=== PATIENT | female | born 1970 | race Caucasian/White ===

== ENCOUNTER 2018-03-24 19:42 | Inpatient (IN) | payer MEDICAID ==
--- NOTE | 2018-03-24 20:13 | ED Physician Chart ---
ED Chief Complaint/HPI - Patient Information Date Seen:: 03/24/18 Time Seen:: 19:50 Chief Complaint:: Fever History of Present Illness:: onset x 3 days of fever, cough, and congestion; no report of trauma, H/As, neck pain, C/P, SOB, Abd. Pain, A/N/V/D/C, chills, or urinary s/s Allergies:: Allergies Allergy/AdvReac Type Severity Reaction Status Date / Time No Known Allergies Allergy Verified 03/24/18 19:53 Vitals:: Vital Signs - 8 hr 03/24/18 19:50 RR 16 Historian:: Patient, EMS Review:: Nurse's Note Reviewed, Old Chart Reviewed, EMS run form Reviewed ED Review of Systems - Review of Systems General/Constitutional: Fever, Chills, No weight loss, Weakness, No diaphoresis , No edema, No loss of appetite Skin: No skin lesions, No rash, No bruising Head: No headache, No light-headedness Eyes: No loss of vision, No pain, No diplopia ENT: No earache, Nasal drainage, No sore throat, No tinnitus Neck: No neck pain, No swelling, No thyromegaly, No stiffness, No mass noted Cardio Vascular: No chest pain, No palpitations, No PND, No orthopnea, No edema Pulmonary: SOB, Cough, No sputum, No wheezing GI: No nausea, No vomiting, No diarrhea, No pain, No melena, No hematochezia, No constipation, No hematemesis G/U: No dysuria, No frequency, No hematuria Preschool Education Director: No vaginal discharge, No abnormal vaginal bleed, No contraction Musculoskeletal: No bone or joint pain, No back pain, No muscle pain Endocrine: No polyuria, No polydipsia Psychiatric: No prior psych history, No depression, No anxiety, No suicidal ideation, No homicidal ideation, No auditory hallucination, No visual hallucination Hematopoietic: No bruising, No lymphadenopathy Allergic/Immuno: No urticaria, No angioedema Neurological: No syncope, No focal symptoms, No weakness, No paresthesia, No headache, No seizure, No dizziness, No confusion, No vertigo ED Past Medical History - Past Medical History Obtainable: Yes Past Medical History: HTN, Asthma/COPD Family History: HTN Social History: Non Smoker, No Alcohol, No Drug Use, Single, Care Facility Surgical History: PEG/GTube (Tracheostomy), other Psychiatricy History: None Medication: Reviewed Family Medical History - Family Member Mother History Unknown: Yes ED Physical Exam - Physical Examination General/Constitutional: Awake, Well-developed, well-nourished, Alert, No distress, GCS 15, Non-toxic appearing, Ambulatory Head: Atraumatic Eyes: Lids, conjuctiva normal, PERRL, EOMI Skin: Nl inspection, No rash, No skin lesions, No ecchymosis, Well hydrated, No lymphadenopathy ENMT: External ears, nose nl, TM canals nl, Nasal exam nl, Lips, teeth, gums nl , Oropharynx nl, Tonsils nl Neck: Nontender, Full ROM w/o pain, No JVD, No nuchal rigidity, No bruit, No mass, No stridor Respiratory: Nl effort/Exclusion Other Respiratory comments:: Lungs: + Rales and Rhonchi Cardio Vascular: RRR, No murmur, gallop, rubs, NL S1 S2, Carotid/Femoral/Distal pulses equal bilaterally GI: No tenderness/rebounding/guarding, No organomegaly, No hernia, Normal BS's, Nondistended, No mass/bruits, No McBurney tenderness : No CVA tenderness Extremities: No tenderness or effusion, Full ROM, normal strength in all extremities, No edema, Normal digits & nails Neuro/Psych: Alert/oriented, DTR's symmetric, Normal sensory exam, Normal motor strength, Judgement/insight normal, Mood normal, Normal gait, No focal deficits Misc: Normal back, No paraspinal tenderness ED Labs/Radiology/EKG Results - Lab Results Comments:: Reviewed - Radiology Results Comments:: + Infiltrate - EKG Interpretations EKG Time:: 21:05 Rate & Rhythm: 110; ST Comments:: non-specific st-t changes ED Septic Shock - . Is Septic Shock (SBP<90, OR Lactate>4 mmol\L) present?: No - <6hrs of presentation: Vital Signs: Vital Signs - 8 hr 03/24/18 19:50 RR 16 ED Reassessment (Disposition) - Reassessment Reassessment Condition:: Improved - Diagnosis Diagnosis:: Respiratory Failure; Fever; UTI; Sepsis; Anemia; Dehydration; PNA; Leukocytosis - Aftercare/Follow up Instructions Aftercare/Follow-Up Instructions:: Counseled pt regarding lab results/diagnosis & need follow up, Counseled pt & family regarding lab results/diagnosis & need follow up - Patient Disposition Discharge/Transfer:: Acute Care w/in this hosp Accepting Physician:: Dr. Tierney Time Called:: 2114 Time Responded:: 21:15 Admitted to:: ICU Spoke to:: Dr. Tierney Admitting Medical Physician:: Dr. Tierney Condition at Disposition:: Stable, Improved
[2018-03-24 20:34] LABS: % BASOPHILS 0.5 % (0.0-2.0); % EOSINOPHILS 2.9 % (0.0-5.0); % LYMPHOCYTES 16.4 % (20.0-50.0); % MONOCYTES 6.9 % (2.0-10.0); % NEUTROPHILS 73.3 % (40.0-80.0); BASOPHILE ABSOLUTE 0.1 Th/cumm (0-0.2); EOSINOPHILE ABSOLUTE 0.3 Th/cmm (0.1-0.4); HEMATOCRIT 29.1 % (41.0-60); HEMOGLOBIN 9.7 gm/dL (12-16); LYMPHOCYTE ABSOLUTE 1.9 Th/cmm (1.5-3.0); MEAN CELL VOLUME 97.9 fl (81-100); MEAN CORPUSCULAR HEMOGLOBIN 32.5 pg (27.0-31.0); MEAN CORPUSCULAR HGB CONC 33.2 pg (28.0-36.0); MEAN PLATELET VOLUME 9.9 fl; MONOCYTE ABSOLUTE 0.8 Th/cmm (0.3-1.0); NEUTROPHILE ABSOLUTE 8.2 Th/cmm (1.8-8.0); PLATELET COUNT 274 Th/cmm (150-400); RED BLOOD COUNT 2.98 Mil/cmm (3.80-5.10); RED CELL DISTRIBUTION WIDTH 13.8 % (11.5-20.0); WHITE BLOOD COUNT 11.3 Th/cmm (4.8-10.8)
[2018-03-24 20:36] LABS: INR 0.99 (0.5-1.4); PROTHROMBIN TIME (TEST) 10.3 SECONDS (9.5-11.5)
[2018-03-24 20:38] LABS: ALB/GLOB RATIO 1.4 (1.0-1.8); ALBUMIN 4.3 gm/dL (3.7-5.3); ALKALINE PHOSPHATASE 124 U/L (34-104); ANION GAP 13.3 (7.0-16.0); BILIRUBIN,TOTAL 0.4 mg/dL (0.3-1.0); BUN - UREA NITROGEN 28 mg/dL (7-25); CALCIUM SERUM 10.7 mg/dL (8.6-10.3); CARBON DIOXIDE 24.4 mEq/L (21.0-31.0); CHLORIDE 112 mEq/L (98-107); CREATININE - SERUM 0.6 mg/dL (0.6-1.2); CREATININE KINASE 87 U/L (30-223); GFR AFRICAN-AMERICAN > 60.0 ml/min (>90); GFR NON AFRICAN-AMERICAN > 60.0 ml/min; GLUCOSE 161 mg/dL (70-105); POTASSIUM SERUM 3.7 mEq/L (3.5-5.1); SGOT 17 U/L (13-39); SGPT/ALT 13 U/L (7-52); SODIUM SERUM 146 mEq/L (136-145); TOTAL PROTEIN,SERUM 7.3 gm/dL (6.0-8.3)
[2018-03-24 20:44] LABS: URINE SOURCE MIDSTREAM
[2018-03-24 20:45] LABS: URINE BILIRUBIN NEGATIVE (NEGATIVE); URINE BLOOD NEGATIVE (NEGATIVE); URINE GLUCOSE (UA) NEGATIVE (NEGATIVE); URINE KETONE NEGATIVE (NEGATIVE); URINE LEUKOCYTE ESTERASE NEGATIVE (NEGATIVE); URINE MICROSCOPIC INDICATED? YES; URINE NITRATE NEGATIVE (NEGATIVE); URINE PROTEIN TRACE mg/dL (NEGATIVE)
[2018-03-24 20:46] LABS: URINE CLARITY CLEAR (CLEAR); URINE COLOR YELLOW
[2018-03-24 20:48] LABS: URINE RBC 0-2 /hpf (0-5)
[2018-03-24 20:49] LABS: URINE BACTERIA 1+ /hpf (NONE SEEN); URINE COARSE GRANULAR CAST 0-2 /lpf (NONE SEEN); URINE EPITHELIAL CELLS MODERATE /lpf (FEW)
[2018-03-24] MEDS ORDERED: cefTRIAXone 1 GM in Sodium Chloride 0.9% 50 ML IV ONE (21:16)
[2018-03-24] MEDS ORDERED: Sodium Chloride 0.9% 1,000 ML IV ONE (22:04)
[2018-03-24] MEDS ORDERED: Magnesium Hydroxide (MOM) 30 mL UDC GT PRN (22:41)
[2018-03-24] MEDS ORDERED: Fleet Enema 135 mL RC PRN (22:41)
--- NOTE | 2018-03-24 23:15 | History & Physical ---
ADMIT DATE: 03/24/2018 CHIEF COMPLAINT: Fever, chills. HISTORY OF PRESENT ILLNESS: The patient is a 47-year-old female with long history of diabetes mellitus, hypertension, subdural hematoma, seizure disorder, chronic respiratory failure, chronic encephalopathy, resident at [facility], transferred to the Emergency Room at [facility] for evaluation and treatment and evaluated by the ER physician. Initial workup significant for urinary infection with sepsis, admitted to the ICU, started on IV fluid and antibiotic. Infectious Disease consultation, Pulmonary consulted on the case. The patient will resume her medication and diet. PAST MEDICAL HISTORY: Diabetes mellitus, hypertension, subdural hematoma, seizure disorder, chronic respiratory failure, chronic encephalopathy. PAST SURGICAL HISTORY: Tracheostomy and G-tube placement. ALLERGIES: None. MEDICATIONS: Follow admission reconciliation. SOCIAL HISTORY: No smoking, no alcohol or drug. FAMILY HISTORY: Noncontributory. REVIEW OF SYSTEMS: IMMUNO SYSTEM: No history of chronic renal disorder. CARDIOVASCULAR SYSTEM: No coronary artery disease. ENDOCRINE SYSTEM: She has a history of diabetes mellitus. GASTROINTESTINAL SYSTEM: No upper or lower gastrointestinal bleed. NEUROLOGICAL: She has history of subdural hematoma, seizure disorder, encephalopathy. SKELETOMUSCULAR SYSTEM: She has weakness of the upper, lower extremities. GENITOURINARY: She has urinary tract infection. PHYSICAL EXAMINATION: GENERAL: She is awake, not coherent. VITAL SIGNS: Temperature 100.0, heart rate 114, blood pressure 123/63. HEENT: Normocephalic. Pupils reactive to light and accommodation. Sclerae clear. NECK: Supple. Negative for lymphadenopathy, JVD or bruit. CHEST: Entry of air bilaterally mild diminished. No wheezing. HEART: S1, S2 normal. No murmur or gallop. ABDOMEN: Soft, bowel sounds positive. EXTREMITIES: No edema. NEUROLOGIC: Not coherent. LABORATORY DATA: White blood cell 11.3, hemoglobin 9.7, hematocrit 29.1, and platelet is 274. Sodium 146, potassium 3.7, BUN is 28, creatinine 0.6. ASSESSMENT: 1. Urinary tract infection. 2. History of subdural hematoma. 3. Chronic respiratory failure. 4. Diabetes mellitus. 5. Seizure disorder. 6. Anemia. 7. Encephalopathy. PLAN: The patient admitted to the hospital under Dr. Tierney's service, started on IV fluid, antibiotic. Dr. Gamez, Tumbler Dyeing Machine Operator, Dr. Leoncio Ceballos, Infectious Disease consulted on the case. The patient is a full code. CBC, CMP for tomorrow. JOB# [id number]
[2018-03-24] MEDS: D5-0.45NS w/20 mEq KCL 1,000 ML IV SCH (23:41)
[2018-03-25] MEDS: Meropenem 1 GM in Sodium Chloride 0.9% 100 ML IV SCH ×2 (00:15→12:34)
[2018-03-25] MEDS: Hydrocodone/APAP 5mg/325mg Tab GT SCH ×4 (00:16→17:39)
[2018-03-25] MEDS: INSULIN ASPART SLIDING SCALE 100 UNITS/ML UNIT SUBQ SCH ×4 (00:18→17:56)
[2018-03-25] MEDS: POLYETHYLENE GLYCOL 3350 17 GM PACK GT SCH ×3 (00:30→22:50)
[2018-03-25] MEDS: Albuterol/Ipratropium Neb 3 ML AERS HHN SCH ×4 (02:31→19:11)
[2018-03-25 04:40] LABS: % BASOPHILS 0.1 % (0.0-2.0); % EOSINOPHILS 3.4 % (0.0-5.0); % LYMPHOCYTES 13.6 % (20.0-50.0); % MONOCYTES 6.6 % (2.0-10.0); % NEUTROPHILS 76.3 % (40.0-80.0); EOSINOPHILE ABSOLUTE 0.4 Th/cmm (0.1-0.4); HEMATOCRIT 27.8 % (41.0-60); HEMOGLOBIN 9.2 gm/dL (12-16); LYMPHOCYTE ABSOLUTE 1.4 Th/cmm (1.5-3.0); MEAN CELL VOLUME 98.4 fl (81-100); MEAN CORPUSCULAR HEMOGLOBIN 32.4 pg (27.0-31.0); MEAN PLATELET VOLUME 9.1 fl; MONOCYTE ABSOLUTE 0.7 Th/cmm (0.3-1.0); RED BLOOD COUNT 2.83 Mil/cmm (3.80-5.10); RED CELL DISTRIBUTION WIDTH 13.2 % (11.5-20.0); WHITE BLOOD COUNT 10.5 Th/cmm (4.8-10.8)
[2018-03-25 04:49] LABS: PLATELET COUNT 217 Th/cmm (150-400)
[2018-03-25 05:26] LABS: ALB/GLOB RATIO 1.4 (1.0-1.8); ALBUMIN 3.8 gm/dL (3.7-5.3); ALKALINE PHOSPHATASE 109 U/L (34-104); ANION GAP 12.4 (7.0-16.0); BILIRUBIN,TOTAL 0.4 mg/dL (0.3-1.0); BUN - UREA NITROGEN 20 mg/dL (7-25); CALCIUM SERUM 9.9 mg/dL (8.6-10.3); CARBON DIOXIDE 21.7 mEq/L (21.0-31.0); CHLORIDE 113 mEq/L (98-107); CREATININE - SERUM 0.5 mg/dL (0.6-1.2); GFR AFRICAN-AMERICAN > 60.0 ml/min (>90); GFR NON AFRICAN-AMERICAN > 60.0 ml/min; GLUCOSE 223 mg/dL (70-105); POTASSIUM SERUM 3.1 mEq/L (3.5-5.1); SGOT 14 U/L (13-39); SGPT/ALT 12 U/L (7-52); SODIUM SERUM 144 mEq/L (136-145); TOTAL PROTEIN,SERUM 6.5 gm/dL (6.0-8.3)
--- NOTE | 2018-03-25 08:10 | Diagnostic Imaging Report ---
CHEST X-RAY: 2 AP views INDICATION: Fever, shortness of breath COMPARISON: None FINDINGS: No focal consolidation or effusions. Heart size is at the upper limits of normal. Tracheostomy tube is noted. Degenerative changes of spine are noted with mild scoliosis. External material is seen overlying the patient. IMPRESSION: No focal consolidation identified.
[2018-03-25] MEDS ORDERED: Non-Formulary Item 1 EA (Amino Acids/Protein Hydrolys [Pro-Stat Awc Liquid] 30 ML) GT SCH (09:00)
[2018-03-25] MEDS: Ferrous Sulfate 300 MG/5 ML UDC GT SCH (09:00)
[2018-03-25] MEDS: Diltiazem 30 mg Tab GT SCH ×2 (09:04→16:54)
[2018-03-25] MEDS: Multivitamin w/ Minerals Tab GT SCH (09:04)
[2018-03-25] MEDS: Potassium Chloride Elixir 20 mEq /15 mL UDC GT SCH ×2 (09:05→16:54)
[2018-03-25] MEDS: Levetiracetam 500 mg/5mL 5mL UDSyr *for ORAL USE ONLY GT SCH ×2 (09:05→16:56)
[2018-03-25] MEDS: D5-0.45NS w/20 mEq KCL 1,000 ML IV SCH (12:32)
--- NOTE | 2018-03-25 16:40 | Consultation ---
DATE OF CONSULTATION: 03/25/2018 REFERRING PHYSICIAN: Dr. Tierney. Thank you very much for this consultation. HISTORY OF PRESENT ILLNESS: This is a 47-year-old female who was admitted from senior living yesterday after she was found to have recurrent fever with highest 101, she is admitted for treatment and management. Fever has come down. The patient is awake, alert. The patient has history of intracranial hemorrhage, respiratory failure, chronic ventilator support. REVIEW OF SYSTEMS: Unable to obtain because of the patient's condition. PHYSICAL EXAMINATION: GENERAL: The patient is awake. VITAL SIGNS: Temperature is 99.2, T-max 100.0, pulse is 113, respiration is 16, blood pressure 125/84, saturation is 100%. HEENT: Atraumatic, normocephalic. Pupils reactive to light and accommodation. Ears, nose and throat normal. NECK: Supple. No JVD. CHEST: There are few rhonchi bilaterally. HEART: Regular rate and rhythm. ABDOMEN: Soft. No tenderness. EXTREMITIES: No edema. LABORATORY DATA: WBC is 10.5, hematocrit 27.8, platelets is 217. Sodium 144, potassium 3.1, BUN 20, creatinine 0.5. Chest x-ray showed no obvious infiltrate. UA shows some bacteria and granular casts. IMPRESSION: 1. This is a 47-year-old female with possible infection, source to be determined, possible urinary tract infection. 2. Respiratory failure. 3. History of intracranial hemorrhage. PLAN: 1. Ventilator support. 2. Empiric antibiotics. 3. Follow up cultures. I will follow the patient with you. Thank you very much for this consultation. JOB# [id number] MTDD
--- NOTE | 2018-03-25 18:06 | Internal Medicine Prog Note ---
Internal Medicine Subjective - Subjective Service Date: 03/25/18 Patient seen and examined:: with staff Patient is:: awake, non-verbal, in bed, confused Per staff patient has:: no adverse event Internal Medicine Objective - Results Result Diagrams: 03/25/18 04:30 03/25/18 04:30 Recent Labs: Laboratory Last Values WBC 10.5 Th/cmm (4.8-10.8) 03/25/18 04:30 RBC 2.83 Mil/cmm (3.80-5.10) L 03/25/18 04:30 Hgb 9.2 gm/dL (12-16) L 03/25/18 04:30 Hct 27.8 % (41.0-60) L 03/25/18 04:30 MCV 98.4 fl (81-100) 03/25/18 04:30 MCH 32.4 pg (27.0-31.0) H 03/25/18 04:30 MCHC Differential 33.0 pg (28.0-36.0) 03/25/18 04:30 RDW 13.2 % (11.5-20.0) 03/25/18 04:30 Plt Count 217 Th/cmm (150-400) D 03/25/18 04:30 MPV 9.1 fl 03/25/18 04:30 Neutrophils % 76.3 % (40.0-80.0) 03/25/18 04:30 Lymphocytes % 13.6 % (20.0-50.0) L 03/25/18 04:30 Monocytes % 6.6 % (2.0-10.0) 03/25/18 04:30 Eosinophils % 3.4 % (0.0-5.0) 03/25/18 04:30 Basophils % 0.1 % (0.0-2.0) 03/25/18 04:30 PT 10.3 SECONDS (9.5-11.5) 03/24/18 20:10 INR 0.99 (0.5-1.4) 03/24/18 20:10 PTT (Actin FS) 24.1 SECONDS (26.0-38.0) L 03/24/18 20:10 Sodium 144 mEq/L (136-145) 03/25/18 04:30 Potassium 3.1 mEq/L (3.5-5.1) L 03/25/18 04:30 Chloride 113 mEq/L (98-107) H 03/25/18 04:30 Carbon Dioxide 21.7 mEq/L (21.0-31.0) 03/25/18 04:30 Anion Gap 12.4 (7.0-16.0) 03/25/18 04:30 BUN 20 mg/dL (7-25) 03/25/18 04:30 Creatinine 0.5 mg/dL (0.6-1.2) L 03/25/18 04:30 Est GFR ( Amer) > 60.0 ml/min (>90) 03/25/18 04:30 Est GFR (Non-Af Amer) > 60.0 ml/min 03/25/18 04:30 BUN/Creatinine Ratio 40.0 03/25/18 04:30 Glucose 223 mg/dL (70-105) H 03/25/18 04:30 POC Glucose 179 MG/DL (70 - 105) H 03/25/18 17:46 Whole Bld Lactic Acid 1.09 mmol/L (0.60-1.99) 03/24/18 20:10 Calcium 9.9 mg/dL (8.6-10.3) 03/25/18 04:30 Total Bilirubin 0.4 mg/dL (0.3-1.0) 03/25/18 04:30 AST 14 U/L (13-39) 03/25/18 04:30 ALT 12 U/L (7-52) 03/25/18 04:30 Alkaline Phosphatase 109 U/L (34-104) H 03/25/18 04:30 Creatine Kinase 87 U/L (30-223) 03/24/18 20:10 Troponin I 0.01 ng/mL (0.01-0.05) 03/24/18 20:10 Total Protein 6.5 gm/dL (6.0-8.3) 03/25/18 04:30 Albumin 3.8 gm/dL (3.7-5.3) 03/25/18 04:30 Globulin 2.7 gm/dL 03/25/18 04:30 Albumin/Globulin Ratio 1.4 (1.0-1.8) 03/25/18 04:30 Serum , Qual NEGATIVE (NEGATIVE) 03/24/18 20:10 Urine Source MIDSTREAM 03/24/18 20:30 Urine Color YELLOW 03/24/18 20:30 Urine Clarity CLEAR (CLEAR) 03/24/18 20:30 Urine pH 7.0 (4.6 - 8.0) 03/24/18 20:30 Ur Specific [place] 1.010 (1.005-1.030) 03/24/18 20:30 Urine Protein TRACE mg/dL (NEGATIVE) 03/24/18 20:30 Urine Glucose (UA) NEGATIVE mg/dL (NEGATIVE) 03/24/18 20:30 Urine Ketones NEGATIVE mg/dL (NEGATIVE) 03/24/18 20:30 Urine Blood NEGATIVE (NEGATIVE) 03/24/18 20:30 Urine Nitrate NEGATIVE (NEGATIVE) 03/24/18 20:30 Urine Bilirubin NEGATIVE (NEGATIVE) 03/24/18 20:30 Urine Urobilinogen 1.0 E.U./dL (0.2 - 1.0) 03/24/18 20:30 Ur Leukocyte Esterase NEGATIVE (NEGATIVE) 03/24/18 20:30 Urine RBC 0-2 /hpf (0-5) 03/24/18 20:30 Urine WBC 2-5 /hpf (0-5) 03/24/18 20:30 Ur Epithelial Cells MODERATE /lpf (FEW) 03/24/18 20:30 Urine Bacteria 1+ /hpf (NONE SEEN) H 03/24/18 20:30 Coarse Granular Casts 0-2 /lpf (NONE SEEN) H 03/24/18 20:30 - Physical Exam Vitals and I&O: Vital Signs Temp 99.2 F 03/25/18 16:00 Pulse 103 03/25/18 17:28 Resp 21 03/25/18 17:00 BP 122/74 03/25/18 17:00 Pulse Ox 100 03/25/18 17:28 Intake & Output 03/24/18 03/25/18 03/25/18 18:59 06:59 18:59 Intake Total 7106.470 2424 Balance 3897.045 2345 Weight (lbs) 40.914 kg Intake: Intake, IV Amount 060.701 5921 D5-0.45NS w/20 mEq KCL 1, 1000 000 ml @ 100 mls/hr IV . Q10H [facility] Rx#:[id number] Meropenem 1 gm In Sodium 100 Chloride 0.9% 100 ml @ 100 mls/hr IV Q12H [facility] Rx #:[id number] Sodium Chloride 0.9% 1, 771.667 000 ml @ 100 mls/hr IV . Q10H [facility] Rx#:[id number] Tube Feeding 420 Other 350 Other: # Voids 2 # Bowel Movements 1 Stool Characteristics Soft Soft Feng Brown Green Green Weight Source Bedscale Active Medications: Current Medications Acetaminophen (Tylenol) 650 mg GT Q6HR PRN PRN Reason: Pain or Fever >101 Stop: 05/23/18 22:40 Last Admin: 03/25/18 11:00 Dose: 650 mg Acetaminophen/Hydrocodone Bitart ([place] 5mg/325mg) 1 tab GT Q6HR [facility] Stop: 05/24/18 00:00 Last Admin: 03/25/18 17:39 Dose: 1 tab Albuterol/Ipratropium (Duoneb Neb) 3 ml HHN Q6HRT [facility] Stop: 05/24/18 00:59 Last Admin: 03/25/18 13:47 Dose: 3 ml Amantadine HCl (Symmetrel) 100 mg GT Q12HR [facility] Stop: 05/24/18 00:44 Last Admin: 03/25/18 09:13 Dose: 100 mg Amlodipine Besylate (Norvasc) 10 mg GT DAILY [facility] Stop: 05/24/18 08:59 Last Admin: 03/25/18 09:04 Dose: 10 mg Ascorbic Acid (Vitamin C) 500 mg GT BID [facility] Stop: 05/24/18 08:59 Last Admin: 03/25/18 16:54 Dose: 500 mg Diltiazem HCl (Cardizem) 30 mg GT BID [facility] Stop: 05/24/18 08:59 Last Admin: 03/25/18 16:54 Dose: 30 mg Diphenhydramine HCl (Benadryl) 12.5 mg GT Q6H PRN PRN Reason: Itching Stop: 05/23/18 22:40 Docusate Sodium (Colace) 100 mg PO BID [facility] Stop: 05/24/18 08:59 Last Admin: 03/25/18 16:54 Dose: 100 mg Famotidine (Pepcid) 20 mg GT DAILY [facility] Stop: 05/24/18 08:59 Last Admin: 03/25/18 09:04 Dose: 20 mg Ferrous Sulfate (Iron) 330 mg GT QDAC [facility] Stop: 05/24/18 07:29 Last Admin: 03/25/18 09:00 Dose: 330 mg Heparin Sodium (Porcine) (Heparin) 5,000 units SUBQ Q12HR [facility] Stop: 05/24/18 00:44 Last Admin: 03/25/18 09:06 Dose: 5,000 units Meropenem 1 gm/ Sodium (Chloride) 100 mls @ 100 mls/hr IV Q12H [facility] Stop: 05/24/18 00:00 Last Admin: 03/25/18 12:34 Dose: 100 mls/hr Potassium Chloride/Dextrose/Sod Cl (D5-0.45ns W/20 Meq Kcl) 1,000 mls @ 100 mls /hr IV .Q10H [facility] Stop: 05/23/18 22:44 Last Admin: 03/25/18 12:32 Dose: 100 mls/hr Vancomycin HCl 1 gm/ Sodium (Chloride) 250 mls @ 165 mls/hr IV Q12H [facility] Stop: 05/24/18 15:59 Last Admin: 03/25/18 15:33 Dose: 165 mls/hr Insulin Aspart (Novolog Insulin Sliding Scale) 0 units SUBQ Q6HR [facility]; Protocol Stop: 05/24/18 00:00 Last Admin: 03/25/18 17:56 Dose: 3 units Insulin Detemir (Levemir Insulin) 10 units SUBQ HS [facility] Stop: 05/24/18 20:59 Levetiracetam (Keppra) 500 mg GT BID [facility] Stop: 05/24/18 08:59 Last Admin: 03/25/18 16:56 Dose: 500 mg Magnesium Hydroxide (Milk Of Magnesia) 30 ml GT Q6H PRN PRN Reason: Constipation Stop: 05/23/18 22:40 Miscellaneous (Vancomycin Iv Per Pharmacy) 1 ea MC PRN [facility] Stop: 05/24/18 14:44 Ondansetron HCl (Zofran) 4 mg IV Q4H PRN PRN Reason: Nausea / Vomiting Stop: 05/23/18 22:44 Polyethylene Glycol (Miralax) 17 gm GT Q12H [facility] Stop: 05/23/18 22:44 Last Admin: 03/25/18 08:45 Dose: Not Given Potassium Chloride (Potassium Chloride Elixir) 40 meq GT BID [facility] Stop: 05/24/18 08:59 Last Admin: 03/25/18 16:54 Dose: 40 meq Senna (Senna) 8.6 mg GT DAILY [facility] Stop: 05/24/18 08:59 Last Admin: 03/25/18 09:04 Dose: 8.6 mg Simvastatin (Zocor) 10 mg GT HS [facility] Stop: 05/24/18 20:59 Sodium Phosphate (Fleet Enema) 135 ml RC PRN PRN PRN Reason: Constipation Stop: 05/23/18 22:40 General: demented HEENT: NC/AT, PERRLA, EOMI, anicteric sclerae, throat clear Neck: Supple, No JVD, No thyromegaly, +2 carotid pulse wo bruit, No LAD Cardiovascular: Normal S1, Normal S2, without murmur Abdomen: soft, non-tender, non-distended Extremities: clear Neurological: no change - Procedures Procedures: Procedures Procedure Code Date RESPIRATORY VENTILATION, LESS THAN 24 CONSECUTIVE HOURS [id number] 03/24/18 Internal Medicine Assmt/Plan - Assessment Assessment: 1.UTI. 2.SEPSIS. 3.RESPIRATORY FAILURE. 4.SAH. 5.DM. 6.ANEMIA. - Plan Plan: CONTINUE ON CURRENT MEDICATION AND DIET. Nutritional Asmnt/Malnutr-PDOC - Dietary Evaluation Malnutrition Findings (Please click <Entered> for more info): Nutritional Asmnt/Malnutrition Start: 03/25/18 13: 56 Text: Status: Complete Freq: Protocol: Document 03/25/18 14:40 LCHENG (Rec: 03/25/18 14:51 LCTYSONG [email or web address]) Nutritional Asmnt/Malnutrition Patient General Information Nutritional Screening High Risk Diagnosis urosepsis, fever Pertinent Medical Hx/Surgical Hx HTN, asthma/COPD, PEG/Gtube Subjective Information Pt seen resting in bed, on trach. TF was running at 70ml/ hr at this time. Current Diet Order/ Nutrition Support glucerna 1.2 70ml x 20hr Pertinent Medications vit C, colace, iron, novolog, levemir, miralax, D5-0.45ns w 20meq kcl, senna Pertinent Labs 03/25 K 3.1, Cl 13, Cr 0.5, glucose 223., POC 145-222 03/24 Na 146, cl 112, BUN 28, glucose 161 Nutritional Hx/Data Height 1.47 m Height (Calculated Centimeters) 147.3 Current Weight (lbs) 40.823 kg Weight (Calculated Kilograms) 40.8 Weight (Calculated Grams) 96162.3 [place] Body Weight 96 Body Mass Index (BMI) 18.8 Weight Status Approriate GI Symptoms GI Symptoms None Last BM 03/25 Difficult in: None Usual diet at home diabetisource 70ml x 20hr daily at care facility per chart Skin Integrity/Comment: intact jason 13 Estimated Nutritional Goals BEE in Kcals: Using Current wt Calories/Kcals/Kg 30-35 Kcals Calculated 9347-8863 Protein: Using Current wt Protein g/k.2-1.4 Protein Calculated 49-57 Fluid: ml 1230-1435ml (1ml/kcal) Nutritional Problem 2. Problem Problem increased nutrition needs Etiology increased metabolic demand Signs/Symptoms: dx of urosepsis, fever 1. Problem Problem altered nutrition related labs Etiology possible endocrine dysfunction , electrolytes imbalance Signs/Symptoms: glucose 161-165, POC 145-222, K 3.1 Intervention/Recommendation Comments 1. Continue with current TF regimen. It provides 1680kcal, 84g protein, 1127ml free water, meeting 100% of nutritional needs 2. MD to adjust insulin regimen for optimal glycemic control 3. Monitor TF rate, tolerance, wt, skin integrity and labs 4. F/U as high risk in 2-3 days, 03/27-03/28 Expected Outcomes/Goals Expected Outcomes/Goals 1. Pt to meet at least 75% of nutritional needs via nutrition support with tolerance 2. Wt stability, skin to remain intact, labs to approach WNL.
[2018-03-25] MEDS: Insulin Detemir 100 units/mL 10mL Vial SUBQ SCH (20:40)
[2018-03-26] MEDS: INSULIN ASPART SLIDING SCALE 100 UNITS/ML UNIT SUBQ SCH ×4 (00:09→18:28)
[2018-03-26] MEDS: Hydrocodone/APAP 5mg/325mg Tab GT SCH ×5 (00:12→23:55)
[2018-03-26] MEDS: Meropenem 1 GM in Sodium Chloride 0.9% 100 ML IV SCH ×3 (00:13→23:56)
[2018-03-26] MEDS: D5-0.45NS w/20 mEq KCL 1,000 ML IV SCH ×3 (00:15→23:38)
[2018-03-26] MEDS: Albuterol/Ipratropium Neb 3 ML AERS HHN SCH ×4 (00:59→19:11)
[2018-03-26 05:06] LABS: % BASOPHILS 0.1 % (0.0-2.0); % EOSINOPHILS 3.7 % (0.0-5.0); % LYMPHOCYTES 12.5 % (20.0-50.0); % MONOCYTES 6.5 % (2.0-10.0); % NEUTROPHILS 77.2 % (40.0-80.0); EOSINOPHILE ABSOLUTE 0.5 Th/cmm (0.1-0.4); HEMATOCRIT 27.3 % (41.0-60); HEMOGLOBIN 9.2 gm/dL (12-16); LYMPHOCYTE ABSOLUTE 1.6 Th/cmm (1.5-3.0); MEAN CELL VOLUME 98.2 fl (81-100); MEAN CORPUSCULAR HEMOGLOBIN 33.2 pg (27.0-31.0); MEAN CORPUSCULAR HGB CONC 33.8 pg (28.0-36.0); MEAN PLATELET VOLUME 9.5 fl; MONOCYTE ABSOLUTE 0.8 Th/cmm (0.3-1.0); NEUTROPHILE ABSOLUTE 10.1 Th/cmm (1.8-8.0); PLATELET COUNT 212 Th/cmm (150-400); RED BLOOD COUNT 2.77 Mil/cmm (3.80-5.10)
[2018-03-26 05:37] LABS: ANION GAP 12.6 (7.0-16.0); BUN - UREA NITROGEN 14 mg/dL (7-25); CALCIUM SERUM 10.1 mg/dL (8.6-10.3); CARBON DIOXIDE 21.8 mEq/L (21.0-31.0); CHLORIDE 115 mEq/L (98-107); CREATININE - SERUM 0.4 mg/dL (0.6-1.2); GFR AFRICAN-AMERICAN > 60.0 ml/min (>90); GFR NON AFRICAN-AMERICAN > 60.0 ml/min; GLUCOSE 90 mg/dL (70-105); POTASSIUM SERUM 3.4 mEq/L (3.5-5.1); SODIUM SERUM 146 mEq/L (136-145)
[2018-03-26] MEDS: Ferrous Sulfate 300 MG/5 ML UDC GT SCH (06:34)
[2018-03-26] MEDS: Potassium Chloride Elixir 20 mEq /15 mL UDC GT SCH ×2 (08:36→17:12)
[2018-03-26] MEDS: Levetiracetam 500 mg/5mL 5mL UDSyr *for ORAL USE ONLY GT SCH ×2 (08:36→17:12)
[2018-03-26] MEDS: Multivitamin w/ Minerals Tab GT SCH (08:37)
[2018-03-26] MEDS: Diltiazem 30 mg Tab GT SCH ×2 (08:37→17:11)
[2018-03-26] MEDS: POLYETHYLENE GLYCOL 3350 17 GM PACK GT SCH ×2 (10:33→22:33)
[2018-03-26 20:10] LABS: A1C % 6.2 % (4.0-6.0)
--- NOTE | 2018-03-26 20:18 | Internal Medicine Prog Note ---
Internal Medicine Subjective - Subjective Service Date: 03/26/18 Patient seen and examined:: with staff Patient is:: awake, non-verbal, in bed, confused Per staff patient has:: no adverse event Internal Medicine Objective - Results Result Diagrams: 03/26/18 04:35 03/26/18 04:35 Recent Labs: Laboratory Last Values WBC 13.0 Th/cmm (4.8-10.8) H 03/26/18 04:35 RBC 2.77 Mil/cmm (3.80-5.10) L 03/26/18 04:35 Hgb 9.2 gm/dL (12-16) L 03/26/18 04:35 Hct 27.3 % (41.0-60) L 03/26/18 04:35 MCV 98.2 fl (81-100) 03/26/18 04:35 MCH 33.2 pg (27.0-31.0) H 03/26/18 04:35 MCHC Differential 33.8 pg (28.0-36.0) 03/26/18 04:35 RDW 13.0 % (11.5-20.0) 03/26/18 04:35 Plt Count 212 Th/cmm (150-400) 03/26/18 04:35 MPV 9.5 fl 03/26/18 04:35 Neutrophils % 77.2 % (40.0-80.0) 03/26/18 04:35 Lymphocytes % 12.5 % (20.0-50.0) L 03/26/18 04:35 Monocytes % 6.5 % (2.0-10.0) 03/26/18 04:35 Eosinophils % 3.7 % (0.0-5.0) 03/26/18 04:35 Basophils % 0.1 % (0.0-2.0) 03/26/18 04:35 PT 10.3 SECONDS (9.5-11.5) 03/24/18 20:10 INR 0.99 (0.5-1.4) 03/24/18 20:10 PTT (Actin FS) 24.1 SECONDS (26.0-38.0) L 03/24/18 20:10 Sodium 146 mEq/L (136-145) H 03/26/18 04:35 Potassium 3.4 mEq/L (3.5-5.1) L 03/26/18 04:35 Chloride 115 mEq/L (98-107) H 03/26/18 04:35 Carbon Dioxide 21.8 mEq/L (21.0-31.0) 03/26/18 04:35 Anion Gap 12.6 (7.0-16.0) 03/26/18 04:35 BUN 14 mg/dL (7-25) 03/26/18 04:35 Creatinine 0.4 mg/dL (0.6-1.2) L 03/26/18 04:35 Est GFR ( Amer) > 60.0 ml/min (>90) 03/26/18 04:35 Est GFR (Non-Af Amer) > 60.0 ml/min 03/26/18 04:35 BUN/Creatinine Ratio 35.0 03/26/18 04:35 Glucose 90 mg/dL (70-105) 03/26/18 04:35 POC Glucose 102 MG/DL (70 - 105) 03/26/18 18:13 Hemoglobin A1c % 6.2 % (4.0-6.0) H 03/25/18 04:30 Whole Bld Lactic Acid 1.09 mmol/L (0.60-1.99) 03/24/18 20:10 Calcium 10.1 mg/dL (8.6-10.3) 03/26/18 04:35 Magnesium 2.0 mg/dL (1.9-2.7) 03/26/18 04:35 Total Bilirubin 0.4 mg/dL (0.3-1.0) 03/25/18 04:30 AST 14 U/L (13-39) 03/25/18 04:30 ALT 12 U/L (7-52) 03/25/18 04:30 Alkaline Phosphatase 109 U/L (34-104) H 03/25/18 04:30 Creatine Kinase 87 U/L (30-223) 03/24/18 20:10 Troponin I 0.01 ng/mL (0.01-0.05) 03/24/18 20:10 Total Protein 6.5 gm/dL (6.0-8.3) 03/25/18 04:30 Albumin 3.8 gm/dL (3.7-5.3) 03/25/18 04:30 Globulin 2.7 gm/dL 03/25/18 04:30 Albumin/Globulin Ratio 1.4 (1.0-1.8) 03/25/18 04:30 Serum , Qual NEGATIVE (NEGATIVE) 03/24/18 20:10 Urine Source MIDSTREAM 03/24/18 20:30 Urine Color YELLOW 03/24/18 20:30 Urine Clarity CLEAR (CLEAR) 03/24/18 20:30 Urine pH 7.0 (4.6 - 8.0) 03/24/18 20:30 Ur Specific [place] 1.010 (1.005-1.030) 03/24/18 20:30 Urine Protein TRACE mg/dL (NEGATIVE) 03/24/18 20:30 Urine Glucose (UA) NEGATIVE mg/dL (NEGATIVE) 03/24/18 20:30 Urine Ketones NEGATIVE mg/dL (NEGATIVE) 03/24/18 20:30 Urine Blood NEGATIVE (NEGATIVE) 03/24/18 20:30 Urine Nitrate NEGATIVE (NEGATIVE) 03/24/18 20:30 Urine Bilirubin NEGATIVE (NEGATIVE) 03/24/18 20:30 Urine Urobilinogen 1.0 E.U./dL (0.2 - 1.0) 03/24/18 20:30 Ur Leukocyte Esterase NEGATIVE (NEGATIVE) 03/24/18 20:30 Urine RBC 0-2 /hpf (0-5) 03/24/18 20:30 Urine WBC 2-5 /hpf (0-5) 03/24/18 20:30 Ur Epithelial Cells MODERATE /lpf (FEW) 03/24/18 20:30 Urine Bacteria 1+ /hpf (NONE SEEN) H 03/24/18 20:30 Coarse Granular Casts 0-2 /lpf (NONE SEEN) H 03/24/18 20:30 Vancomycin Trough 15.5 ug/mL (5-10) H 03/26/18 15:36 - Physical Exam Vitals and I&O: Vital Signs Temp 99.1 F 03/26/18 17:00 Pulse 100 03/26/18 19:11 Resp 22 03/26/18 18:00 BP 109/58 03/26/18 18:00 Pulse Ox 100 03/26/18 19:11 Intake & Output 03/26/18 03/26/18 03/27/18 06:59 18:59 06:59 Intake Total 1350 2134 Output Total 2 Balance 1350 2132 Weight (lbs) 44.906 kg Intake: Intake, IV Amount 1350 1350 D5-0.45NS w/20 mEq KCL 1, 1000 1000 000 ml @ 100 mls/hr IV . Q10H [facility] Rx#:[id number] Meropenem 1 gm In Sodium 100 100 Chloride 0.9% 100 ml @ 100 mls/hr IV Q12H [facility] Rx #:[id number] Vancomycin HCl 1 gm In 250 250 Sodium Chloride 0.9% 250 ml @ 165 mls/hr IV Q12H [facility] Rx#:[id number] Tube Feeding 454 Other 330 Output: Stool 1 Urine/Stool Mix 1 Other: # Voids 3 # Bowel Movements 0 Stool Characteristics Soft Brown Green Weight Source Bedscale Active Medications: Current Medications Acetaminophen (Tylenol) 650 mg GT Q6HR PRN PRN Reason: Pain or Fever >101 Stop: 05/23/18 22:40 Last Admin: 03/25/18 11:00 Dose: 650 mg Acetaminophen/Hydrocodone Bitart ([place] 5mg/325mg) 1 tab GT Q6HR [facility] Stop: 05/24/18 00:00 Last Admin: 03/26/18 17:11 Dose: 1 tab Albuterol/Ipratropium (Duoneb Neb) 3 ml HHN Q6HRT [facility] Stop: 05/24/18 00:59 Last Admin: 03/26/18 19:11 Dose: 3 ml Amantadine HCl (Symmetrel) 100 mg GT Q12HR [facility] Stop: 05/24/18 00:44 Last Admin: 03/26/18 08:41 Dose: 100 mg Amlodipine Besylate (Norvasc) 10 mg GT DAILY [facility] Stop: 05/24/18 08:59 Last Admin: 03/26/18 08:37 Dose: 10 mg Ascorbic Acid (Vitamin C) 500 mg GT BID [facility] Stop: 05/24/18 08:59 Last Admin: 03/26/18 17:11 Dose: 500 mg Diltiazem HCl (Cardizem) 30 mg GT BID [facility] Stop: 05/24/18 08:59 Last Admin: 03/26/18 17:11 Dose: 30 mg Diphenhydramine HCl (Benadryl) 12.5 mg GT Q6H PRN PRN Reason: Itching Stop: 05/23/18 22:40 Docusate Sodium (Colace) 100 mg PO BID [facility] Stop: 05/24/18 08:59 Last Admin: 03/26/18 17:11 Dose: 100 mg Famotidine (Pepcid) 20 mg GT DAILY [facility] Stop: 05/24/18 08:59 Last Admin: 03/26/18 08:36 Dose: 20 mg Ferrous Sulfate (Iron) 330 mg GT QDAC [facility] Stop: 05/24/18 07:29 Last Admin: 03/26/18 06:34 Dose: 330 mg Heparin Sodium (Porcine) (Heparin) 5,000 units SUBQ Q12HR [facility] Stop: 05/24/18 00:44 Last Admin: 03/26/18 08:42 Dose: 5,000 units Meropenem 1 gm/ Sodium (Chloride) 100 mls @ 100 mls/hr IV Q12H [facility] Stop: 05/24/18 00:00 Last Infusion: 03/26/18 12:30 Dose: Infused Potassium Chloride/Dextrose/Sod Cl (D5-0.45ns W/20 Meq Kcl) 1,000 mls @ 100 mls /hr IV .Q10H [facility] Stop: 05/23/18 22:44 Last Admin: 03/26/18 13:38 Dose: 100 mls/hr Vancomycin HCl 1 gm/ Sodium (Chloride) 250 mls @ 165 mls/hr IV Q12H [facility] Stop: 05/24/18 15:59 Last Infusion: 03/26/18 17:48 Dose: Infused Insulin Aspart (Novolog Insulin Sliding Scale) 0 units SUBQ Q6HR [facility]; Protocol Stop: 05/24/18 00:00 Last Admin: 03/26/18 18:28 Dose: Not Given Insulin Detemir (Levemir Insulin) 10 units SUBQ HS [facility] Stop: 05/24/18 20:59 Last Admin: 03/25/18 20:40 Dose: 10 units Levetiracetam (Keppra) 500 mg GT BID [facility] Stop: 05/24/18 08:59 Last Admin: 03/26/18 17:12 Dose: 500 mg Magnesium Hydroxide (Milk Of Magnesia) 30 ml GT Q6H PRN PRN Reason: Constipation Stop: 05/23/18 22:40 Miscellaneous (Vancomycin Iv Per Pharmacy) 1 ea MC PRN [facility] Stop: 05/24/18 14:44 Ondansetron HCl (Zofran) 4 mg IV Q4H PRN PRN Reason: Nausea / Vomiting Stop: 05/23/18 22:44 Polyethylene Glycol (Miralax) 17 gm GT Q12H [facility] Stop: 05/23/18 22:44 Last Admin: 03/26/18 10:33 Dose: Not Given Potassium Chloride (Potassium Chloride Elixir) 40 meq GT BID [facility] Stop: 05/24/18 08:59 Last Admin: 03/26/18 17:12 Dose: 40 meq Senna (Senna) 8.6 mg GT DAILY [facility] Stop: 05/24/18 08:59 Last Admin: 03/26/18 09:19 Dose: Not Given Simvastatin (Zocor) 10 mg GT HS [facility] Stop: 05/24/18 20:59 Last Admin: 03/25/18 20:40 Dose: 10 mg Sodium Phosphate (Fleet Enema) 135 ml RC PRN PRN PRN Reason: Constipation Stop: 05/23/18 22:40 General: demented HEENT: NC/AT, PERRLA, EOMI, anicteric sclerae, throat clear Neck: Supple, No JVD, No thyromegaly, +2 carotid pulse wo bruit, No LAD Cardiovascular: Normal S1, Normal S2, without murmur Abdomen: soft, non-tender, non-distended Extremities: clear Neurological: no change - Procedures Procedures: Procedures Procedure Code Date RESPIRATORY VENTILATION, 24-96 CONSECUTIVE HOURS [id number] 03/24/18 Internal Medicine Assmt/Plan - Assessment Assessment: 1.UTI. 2.SEPSIS. 3.RESPIRATORY FAILURE. 4.SAH. 5.DM. 6.ANEMIA. - Plan Plan: CONTINUE ON CURRENT MEDICATION AND DIET. Nutritional Asmnt/Malnutr-PDOC - Dietary Evaluation Malnutrition Findings (Please click <Entered> for more info): Nutritional Asmnt/Malnutrition Start: 03/25/18 13: 56 Text: Status: Complete Freq: Protocol: Document 03/25/18 14:40 DESIREEG (Rec: 03/25/18 14:51 QAMAR [email or web address]) Nutritional Asmnt/Malnutrition Patient General Information Nutritional Screening High Risk Diagnosis urosepsis, fever Pertinent Medical Hx/Surgical Hx HTN, asthma/COPD, PEG/Gtube Subjective Information Pt seen resting in bed, on trach. TF was running at 70ml/ hr at this time. Current Diet Order/ Nutrition Support glucerna 1.2 70ml x 20hr Pertinent Medications vit C, colace, iron, novolog, levemir, miralax, D5-0.45ns w 20meq kcl, senna Pertinent Labs 03/25 K 3.1, Cl 13, Cr 0.5, glucose 223., POC 145-222 03/24 Na 146, cl 112, BUN 28, glucose 161 Nutritional Hx/Data Height 1.47 m Height (Calculated Centimeters) 147.3 Current Weight (lbs) 40.823 kg Weight (Calculated Kilograms) 40.8 Weight (Calculated Grams) 24954.3 [place] Body Weight 96 Body Mass Index (BMI) 18.8 Weight Status Approriate GI Symptoms GI Symptoms None Last BM 03/25 Difficult in: None Usual diet at home diabetisource 70ml x 20hr daily at care facility per chart Skin Integrity/Comment: intact jason 13 Estimated Nutritional Goals BEE in Kcals: Using Current wt Calories/Kcals/Kg 30-35 Kcals Calculated 4324-8947 Protein: Using Current wt Protein g/k.2-1.4 Protein Calculated 49-57 Fluid: ml 1230-1435ml (1ml/kcal) Nutritional Problem 2. Problem Problem increased nutrition needs Etiology increased metabolic demand Signs/Symptoms: dx of urosepsis, fever 1. Problem Problem altered nutrition related labs Etiology possible endocrine dysfunction , electrolytes imbalance Signs/Symptoms: glucose 161-165, POC 145-222, K 3.1 Intervention/Recommendation Comments 1. Continue with current TF regimen. It provides 1680kcal, 84g protein, 1127ml free water, meeting 100% of nutritional needs 2. MD to adjust insulin regimen for optimal glycemic control 3. Monitor TF rate, tolerance, wt, skin integrity and labs 4. F/U as high risk in 2-3 days, 03/27-03/28 Expected Outcomes/Goals Expected Outcomes/Goals 1. Pt to meet at least 75% of nutritional needs via nutrition support with tolerance 2. Wt stability, skin to remain intact, labs to approach WNL.
[2018-03-26] MEDS: Insulin Detemir 100 units/mL 10mL Vial SUBQ SCH (20:48)
[2018-03-27] MEDS: INSULIN ASPART SLIDING SCALE 100 UNITS/ML UNIT SUBQ SCH ×5 (00:05→23:40)
[2018-03-27] MEDS: Albuterol/Ipratropium Neb 3 ML AERS HHN SCH ×4 (00:30→18:57)
[2018-03-27 05:09] LABS: % BASOPHILS 0.1 % (0.0-2.0); % EOSINOPHILS 5.2 % (0.0-5.0); % LYMPHOCYTES 15.3 % (20.0-50.0); % MONOCYTES 7.7 % (2.0-10.0); % NEUTROPHILS 71.7 % (40.0-80.0); EOSINOPHILE ABSOLUTE 0.4 Th/cmm (0.1-0.4); HEMOGLOBIN 8.9 gm/dL (12-16); LYMPHOCYTE ABSOLUTE 1.3 Th/cmm (1.5-3.0); MEAN CELL VOLUME 97.8 fl (81-100); MEAN CORPUSCULAR HEMOGLOBIN 33.4 pg (27.0-31.0); MEAN CORPUSCULAR HGB CONC 34.1 pg (28.0-36.0); MEAN PLATELET VOLUME 10.2 fl; MONOCYTE ABSOLUTE 0.7 Th/cmm (0.3-1.0); NEUTROPHILE ABSOLUTE 6.2 Th/cmm (1.8-8.0); PLATELET COUNT 195 Th/cmm (150-400); RED BLOOD COUNT 2.66 Mil/cmm (3.80-5.10); RED CELL DISTRIBUTION WIDTH 13.5 % (11.5-20.0); WHITE BLOOD COUNT 8.6 Th/cmm (4.8-10.8)
[2018-03-27] MEDS: Hydrocodone/APAP 5mg/325mg Tab GT SCH ×4 (06:05→23:39)
--- NOTE | 2018-03-27 06:18 | Consultation ---
DATE OF CONSULTATION: 03/25/2018 PRIMARY CARE PHYSICIAN: Dr. Tierney. CHIEF COMPLAINT: This is a 47-year-old female who was brought to the Emergency Room with complaint of fever for 3 days. HISTORY OF PRESENT ILLNESS: The patient lives in a correction and was febrile for 3 days and brought to Emergency where the patient was evaluated and admitted to ICU with respiratory failure. The patient's workup shows sepsis. Infectious consultation was called for further treatment, antibiotic adjusted and discussed with the staff. PAST MEDICAL HISTORY: Essential hypertension, asthma, diabetes, tracheostomy and G-tube placement. FAMILY HISTORY: Negative. SOCIAL HISTORY: Nonsmoker. REVIEW OF SYSTEMS: Unable to obtain. No seizure, fall, bleeding, trauma, HIV or hepatitis. PHYSICAL EXAMINATION: GENERAL/VITAL SIGNS: The patient is a young female, bedbound with the following vital signs; temperature is 98, pulse 89, respirations 18 and blood pressure 108/66. HEENT: Mild pallor. No icterus or plaque. NECK: Supple. LUNGS: Breath sounds bilateral decreased. CARDIOVASCULAR: S1 and S2. ABDOMEN: Soft, bowel sounds, no ____ cervical lymph nodes. Muscle atrophy present. LABORATORY DATA: White count is 10,000, hemoglobin is 9 grams, platelets normal at 217. DIAGNOSTIC DATA: Chest x-ray reviewed. Tracheostomy present. Degenerative changes of the spine with scoliosis. UA shows 1+ bacteria. DIAGNOSES: Pneumonia, urinary tract infection, tracheostomy and respiratory insufficiency. PLAN: The patient is started on Merrem. Will add vancomycin, supportive care. Rest of the care as ordered in CPOE. Hypertension is controlled with amlodipine. Constipation, docusate. Iron deficiency, iron sulphate. Diabetes, insulin. Seizures, Keppra. Thank you Dr. Tierney for this consultation. JOB# [id number]
[2018-03-27] MEDS: Ferrous Sulfate 300 MG/5 ML UDC GT SCH (06:48)
[2018-03-27 07:29] LABS: ALB/GLOB RATIO 1.7 (1.0-1.8); ALBUMIN 3.8 gm/dL (3.7-5.3); ALKALINE PHOSPHATASE 105 U/L (34-104); ANION GAP 10.9 (7.0-16.0); BILIRUBIN,TOTAL 0.2 mg/dL (0.3-1.0); BUN - UREA NITROGEN 15 mg/dL (7-25); CARBON DIOXIDE 22.8 mEq/L (21.0-31.0); CHLORIDE 115 mEq/L (98-107); CREATININE - SERUM 0.4 mg/dL (0.6-1.2); GFR AFRICAN-AMERICAN > 60.0 ml/min (>90); GFR NON AFRICAN-AMERICAN > 60.0 ml/min; GLUCOSE 120 mg/dL (70-105); POTASSIUM SERUM 3.7 mEq/L (3.5-5.1); SGOT 17 U/L (13-39); SGPT/ALT 13 U/L (7-52); SODIUM SERUM 145 mEq/L (136-145); TOTAL PROTEIN,SERUM 6.1 gm/dL (6.0-8.3)
[2018-03-27] MEDS: Diltiazem 30 mg Tab GT SCH ×2 (08:25→17:26)
[2018-03-27] MEDS: Levetiracetam 500 mg/5mL 5mL UDSyr *for ORAL USE ONLY GT SCH ×2 (08:25→17:26)
[2018-03-27] MEDS: Multivitamin w/ Minerals Tab GT SCH (08:26)
[2018-03-27] MEDS: POLYETHYLENE GLYCOL 3350 17 GM PACK GT SCH ×2 (10:45→23:39)
[2018-03-27] MEDS: D5-0.45NS w/20 mEq KCL 1,000 ML IV SCH ×2 (11:03→22:47)
[2018-03-27] MEDS: Potassium Chloride Elixir 20 mEq /15 mL UDC GT SCH ×2 (11:06→17:00)
[2018-03-27] MEDS: Meropenem 1 GM in Sodium Chloride 0.9% 100 ML IV SCH ×2 (11:58→23:38)
--- NOTE | 2018-03-27 17:17 | General Progress Note ---
Subjective - Review of Systems Service Date: 03/27/18 Subjective: awake and able to communicate by blinking (able to blink twice for yes.) appears somewhat restless; c/o of pain, according to staff pointing to trach respiratory has checked trach which appears to be fine Objective - Results Result Diagrams: 03/27/18 04:40 03/27/18 04:40 Recent Labs: Laboratory Last Values WBC 8.6 Th/cmm (4.8-10.8) 03/27/18 04:40 RBC 2.66 Mil/cmm (3.80-5.10) L 03/27/18 04:40 Hgb 8.9 gm/dL (12-16) L 03/27/18 04:40 Hct 26.0 % (41.0-60) L 03/27/18 04:40 MCV 97.8 fl (81-100) 03/27/18 04:40 MCH 33.4 pg (27.0-31.0) H 03/27/18 04:40 MCHC Differential 34.1 pg (28.0-36.0) 03/27/18 04:40 RDW 13.5 % (11.5-20.0) 03/27/18 04:40 Plt Count 195 Th/cmm (150-400) 03/27/18 04:40 MPV 10.2 fl 03/27/18 04:40 Neutrophils % 71.7 % (40.0-80.0) 03/27/18 04:40 Lymphocytes % 15.3 % (20.0-50.0) L 03/27/18 04:40 Monocytes % 7.7 % (2.0-10.0) 03/27/18 04:40 Eosinophils % 5.2 % (0.0-5.0) H 03/27/18 04:40 Basophils % 0.1 % (0.0-2.0) 03/27/18 04:40 PT 10.3 SECONDS (9.5-11.5) 03/24/18 20:10 INR 0.99 (0.5-1.4) 03/24/18 20:10 PTT (Actin FS) 24.1 SECONDS (26.0-38.0) L 03/24/18 20:10 Sodium 145 mEq/L (136-145) 03/27/18 04:40 Potassium 3.7 mEq/L (3.5-5.1) 03/27/18 04:40 Chloride 115 mEq/L (98-107) H 03/27/18 04:40 Carbon Dioxide 22.8 mEq/L (21.0-31.0) 03/27/18 04:40 Anion Gap 10.9 (7.0-16.0) 03/27/18 04:40 BUN 15 mg/dL (7-25) 03/27/18 04:40 Creatinine 0.4 mg/dL (0.6-1.2) L 03/27/18 04:40 Est GFR ( Amer) > 60.0 ml/min (>90) 03/27/18 04:40 Est GFR (Non-Af Amer) > 60.0 ml/min 03/27/18 04:40 BUN/Creatinine Ratio 37.5 03/27/18 04:40 Glucose 120 mg/dL (70-105) H 03/27/18 04:40 POC Glucose 130 MG/DL (70 - 105) H 03/27/18 12:08 Hemoglobin A1c % 6.2 % (4.0-6.0) H 03/25/18 04:30 Whole Bld Lactic Acid 1.09 mmol/L (0.60-1.99) 03/24/18 20:10 Calcium 10.0 mg/dL (8.6-10.3) 03/27/18 04:40 Magnesium 2.0 mg/dL (1.9-2.7) 03/26/18 04:35 Total Bilirubin 0.2 mg/dL (0.3-1.0) L 03/27/18 04:40 AST 17 U/L (13-39) 03/27/18 04:40 ALT 13 U/L (7-52) 03/27/18 04:40 Alkaline Phosphatase 105 U/L (34-104) H 03/27/18 04:40 Creatine Kinase 87 U/L (30-223) 03/24/18 20:10 Troponin I 0.01 ng/mL (0.01-0.05) 03/24/18 20:10 Total Protein 6.1 gm/dL (6.0-8.3) 03/27/18 04:40 Albumin 3.8 gm/dL (3.7-5.3) 03/27/18 04:40 Globulin 2.3 gm/dL 03/27/18 04:40 Albumin/Globulin Ratio 1.7 (1.0-1.8) 03/27/18 04:40 Serum , Qual NEGATIVE (NEGATIVE) 03/24/18 20:10 Urine Source MIDSTREAM 03/24/18 20:30 Urine Color YELLOW 03/24/18 20:30 Urine Clarity CLEAR (CLEAR) 03/24/18 20:30 Urine pH 7.0 (4.6 - 8.0) 03/24/18 20:30 Ur Specific [place] 1.010 (1.005-1.030) 03/24/18 20:30 Urine Protein TRACE mg/dL (NEGATIVE) 03/24/18 20:30 Urine Glucose (UA) NEGATIVE mg/dL (NEGATIVE) 03/24/18 20:30 Urine Ketones NEGATIVE mg/dL (NEGATIVE) 03/24/18 20:30 Urine Blood NEGATIVE (NEGATIVE) 03/24/18 20:30 Urine Nitrate NEGATIVE (NEGATIVE) 03/24/18 20:30 Urine Bilirubin NEGATIVE (NEGATIVE) 03/24/18 20:30 Urine Urobilinogen 1.0 E.U./dL (0.2 - 1.0) 03/24/18 20:30 Ur Leukocyte Esterase NEGATIVE (NEGATIVE) 03/24/18 20:30 Urine RBC 0-2 /hpf (0-5) 03/24/18 20:30 Urine WBC 2-5 /hpf (0-5) 03/24/18 20:30 Ur Epithelial Cells MODERATE /lpf (FEW) 03/24/18 20:30 Urine Bacteria 1+ /hpf (NONE SEEN) H 03/24/18 20:30 Coarse Granular Casts 0-2 /lpf (NONE SEEN) H 03/24/18 20:30 Vancomycin Trough 15.5 ug/mL (5-10) H 03/26/18 15:36 - Physical Exam Vitals and I&O: Vital Signs Temp 99.2 F 03/27/18 12:00 Pulse 104 03/27/18 15:00 Resp 18 03/27/18 15:00 BP 144/79 03/27/18 15:00 Pulse Ox 100 03/27/18 15:00 Intake & Output 03/26/18 03/27/18 03/27/18 18:59 06:59 18:59 Intake Total 2134 2976.667 463.333 Output Total 2 1 Balance 2132 2975.667 463.333 Weight (lbs) 44.906 kg 43.545 kg Intake: Intake, IV Amount 1350 1986.667 463.333 D5-0.45NS w/20 mEq KCL 1, 1000 1636.667 363.333 000 ml @ 100 mls/hr IV . Q10H [facility] Rx#:[id number] Meropenem 1 gm In Sodium 100 100 100 Chloride 0.9% 100 ml @ 100 mls/hr IV Q12H [facility] Rx #:[id number] Vancomycin HCl 1 gm In 250 250 Sodium Chloride 0.9% 250 ml @ 165 mls/hr IV Q12H [facility] Rx#:[id number] Tube Feeding 454 840 Other 330 150 Output: Stool 1 1 Urine/Stool Mix 1 Other: # Voids 3 3 # Bowel Movements 0 Stool Characteristics Soft Soft Soft Brown Liquid Brown Green Brown Green Green Weight Source Bedscale Bedscale Active Medications: Current Medications Acetaminophen (Tylenol) 650 mg GT Q6HR PRN PRN Reason: Pain or Fever >101 Stop: 05/23/18 22:40 Last Admin: 03/25/18 11:00 Dose: 650 mg Acetaminophen/Hydrocodone Bitart ([place] 5mg/325mg) 1 tab GT Q6HR [facility] Stop: 05/24/18 00:00 Last Admin: 03/27/18 11:59 Dose: 1 tab Albuterol/Ipratropium (Duoneb Neb) 3 ml HHN Q6HRT [facility] Stop: 05/24/18 00:59 Last Admin: 03/27/18 12:52 Dose: 3 ml Amantadine HCl (Symmetrel) 100 mg GT Q12HR [facility] Stop: 05/24/18 00:44 Last Admin: 03/27/18 08:27 Dose: 100 mg Amlodipine Besylate (Norvasc) 10 mg GT DAILY [facility] Stop: 05/24/18 08:59 Last Admin: 03/27/18 08:26 Dose: 10 mg Ascorbic Acid (Vitamin C) 500 mg GT BID [facility] Stop: 05/24/18 08:59 Last Admin: 03/27/18 08:26 Dose: 500 mg Diltiazem HCl (Cardizem) 30 mg GT BID [facility] Stop: 05/24/18 08:59 Last Admin: 03/27/18 08:25 Dose: 30 mg Diphenhydramine HCl (Benadryl) 12.5 mg GT Q6H PRN PRN Reason: Itching Stop: 05/23/18 22:40 Last Admin: 03/26/18 21:12 Dose: 12.5 mg Docusate Sodium (Colace) 100 mg PO BID [facility] Stop: 05/24/18 08:59 Last Admin: 03/27/18 08:27 Dose: 100 mg Famotidine (Pepcid) 20 mg GT DAILY [facility] Stop: 05/24/18 08:59 Last Admin: 03/27/18 08:26 Dose: 20 mg Ferrous Sulfate (Iron) 330 mg GT QDAC [facility] Stop: 05/24/18 07:29 Last Admin: 03/27/18 06:48 Dose: 330 mg Heparin Sodium (Porcine) (Heparin) 5,000 units SUBQ Q12HR [facility] Stop: 05/24/18 00:44 Last Admin: 03/27/18 08:27 Dose: 5,000 units Meropenem 1 gm/ Sodium (Chloride) 100 mls @ 100 mls/hr IV Q12H [facility] Stop: 05/24/18 00:00 Last Infusion: 03/27/18 14:28 Dose: Infused Potassium Chloride/Dextrose/Sod Cl (D5-0.45ns W/20 Meq Kcl) 1,000 mls @ 100 mls /hr IV .Q10H [facility] Stop: 05/23/18 22:44 Last Admin: 03/27/18 11:03 Dose: 100 mls/hr Vancomycin HCl 1 gm/ Sodium (Chloride) 250 mls @ 165 mls/hr IV Q12H [facility] Stop: 05/24/18 15:59 Last Admin: 03/27/18 15:28 Dose: 165 mls/hr Insulin Aspart (Novolog Insulin Sliding Scale) 0 units SUBQ Q6HR [facility]; Protocol Stop: 05/24/18 00:00 Last Admin: 03/27/18 12:00 Dose: Not Given Insulin Detemir (Levemir Insulin) 10 units SUBQ HS [facility] Stop: 05/24/18 20:59 Last Admin: 03/26/18 20:48 Dose: 10 units Levetiracetam (Keppra) 500 mg GT BID [facility] Stop: 05/24/18 08:59 Last Admin: 03/27/18 08:25 Dose: 500 mg Lorazepam (Ativan) 1 mg IVP Q4HR PRN; Protocol PRN Reason: Agitation Stop: 05/26/18 14:37 Magnesium Hydroxide (Milk Of Magnesia) 30 ml GT Q6H PRN PRN Reason: Constipation Stop: 05/23/18 22:40 Miscellaneous (Vancomycin Iv Per Pharmacy) 1 ea MC PRN [facility] Stop: 05/24/18 14:44 Morphine Sulfate (Morphine) 4 mg IVP Q6H PRN PRN Reason: Pain (Severe) Stop: 05/26/18 17:10 Ondansetron HCl (Zofran) 4 mg IV Q4H PRN PRN Reason: Nausea / Vomiting Stop: 05/23/18 22:44 Polyethylene Glycol (Miralax) 17 gm GT Q12H [facility] Stop: 05/23/18 22:44 Last Admin: 03/27/18 10:45 Dose: Not Given Potassium Chloride (Potassium Chloride Elixir) 40 meq GT BID [facility] Stop: 05/24/18 08:59 Last Admin: 03/27/18 11:06 Dose: 40 meq Senna (Senna) 8.6 mg GT DAILY [facility] Stop: 05/24/18 08:59 Last Admin: 03/27/18 08:25 Dose: 8.6 mg Simvastatin (Zocor) 10 mg GT HS [facility] Stop: 05/24/18 20:59 Last Admin: 03/26/18 20:31 Dose: 10 mg Sodium Phosphate (Fleet Enema) 135 ml RC PRN PRN PRN Reason: Constipation Stop: 05/23/18 22:40 General: No acute distress HEENT: Atraumatic, PERRLA Neck: Supple, JVD Cardiovascular: Regular rate, Normal S1, Normal S2 Lungs: Clear to auscultation Abdomen: Bowel sounds, Soft - Procedures Procedures: Procedures Procedure Code Date RESPIRATORY VENTILATION, 24-96 CONSECUTIVE HOURS [id number] 03/24/18 Assessment/Plan - Assessment Assessment: 1.UTI. 2.SEPSIS. 3.RESPIRATORY FAILURE. 4.SAH. 5.DM. 6.ANEMIA. - Plan Plan: morphine PRN, patient already on routine [place] continue current treatment Nutritional Asmnt/Malnutr-PDOC - Dietary Evaluation Malnutrition Findings (Please click <Entered> for more info): Nutritional Asmnt/Malnutrition Start: 03/25/18 13: 56 Text: Status: Complete Freq: Protocol: Document 03/25/18 14:40 QAMAR (Rec: 03/25/18 14:51 QAMAR [email or web address]) Nutritional Asmnt/Malnutrition Patient General Information Nutritional Screening High Risk Diagnosis urosepsis, fever Pertinent Medical Hx/Surgical Hx HTN, asthma/COPD, PEG/Gtube Subjective Information Pt seen resting in bed, on trach. TF was running at 70ml/ hr at this time. Current Diet Order/ Nutrition Support glucerna 1.2 70ml x 20hr Pertinent Medications vit C, colace, iron, novolog, levemir, miralax, D5-0.45ns w 20meq kcl, senna Pertinent Labs 03/25 K 3.1, Cl 13, Cr 0.5, glucose 223., POC 145-222 03/24 Na 146, cl 112, BUN 28, glucose 161 Nutritional Hx/Data Height 1.47 m Height (Calculated Centimeters) 147.3 Current Weight (lbs) 40.823 kg Weight (Calculated Kilograms) 40.8 Weight (Calculated Grams) 74822.3 [place] Body Weight 96 Body Mass Index (BMI) 18.8 Weight Status Approriate GI Symptoms GI Symptoms None Last BM 03/25 Difficult in: None Usual diet at home diabetisource 70ml x 20hr daily at care facility per chart Skin Integrity/Comment: intact jason 13 Estimated Nutritional Goals BEE in Kcals: Using Current wt Calories/Kcals/Kg 30-35 Kcals Calculated 0012-8231 Protein: Using Current wt Protein g/k.2-1.4 Protein Calculated 49-57 Fluid: ml 1230-1435ml (1ml/kcal) Nutritional Problem 2. Problem Problem increased nutrition needs Etiology increased metabolic demand Signs/Symptoms: dx of urosepsis, fever 1. Problem Problem altered nutrition related labs Etiology possible endocrine dysfunction , electrolytes imbalance Signs/Symptoms: glucose 161-165, POC 145-222, K 3.1 Intervention/Recommendation Comments 1. Continue with current TF regimen. It provides 1680kcal, 84g protein, 1127ml free water, meeting 100% of nutritional needs 2. MD to adjust insulin regimen for optimal glycemic control 3. Monitor TF rate, tolerance, wt, skin integrity and labs 4. F/U as high risk in 2-3 days, 03/27-03/28 Expected Outcomes/Goals Expected Outcomes/Goals 1. Pt to meet at least 75% of nutritional needs via nutrition support with tolerance 2. Wt stability, skin to remain intact, labs to approach WNL.
[2018-03-27] MEDS: Insulin Detemir 100 units/mL 10mL Vial SUBQ SCH (20:37)
[2018-03-28] MEDS: Albuterol/Ipratropium Neb 3 ML AERS HHN SCH ×4 (01:27→19:07)
[2018-03-28 04:55] LABS: % BASOPHILS 0.8 % (0.0-2.0); % EOSINOPHILS 2.7 % (0.0-5.0); % LYMPHOCYTES 7.5 % (20.0-50.0); % MONOCYTES 6.4 % (2.0-10.0); % NEUTROPHILS 82.6 % (40.0-80.0); BASOPHILE ABSOLUTE 0.1 Th/cumm (0-0.2); EOSINOPHILE ABSOLUTE 0.4 Th/cmm (0.1-0.4); HEMOGLOBIN 8.8 gm/dL (12-16); MEAN CELL VOLUME 97.6 fl (81-100); MEAN CORPUSCULAR HGB CONC 33.8 pg (28.0-36.0); MEAN PLATELET VOLUME 10.6 fl; MONOCYTE ABSOLUTE 0.9 Th/cmm (0.3-1.0); NEUTROPHILE ABSOLUTE 11.3 Th/cmm (1.8-8.0); PLATELET COUNT 214 Th/cmm (150-400); RED BLOOD COUNT 2.66 Mil/cmm (3.80-5.10); RED CELL DISTRIBUTION WIDTH 13.2 % (11.5-20.0)
[2018-03-28 04:59] LABS: WHITE BLOOD COUNT 13.7 Th/cmm (4.8-10.8)
[2018-03-28 05:07] LABS: ANION GAP 10.9 (7.0-16.0); BUN - UREA NITROGEN 13 mg/dL (7-25); CALCIUM SERUM 9.7 mg/dL (8.6-10.3); CARBON DIOXIDE 22.7 mEq/L (21.0-31.0); CHLORIDE 110 mEq/L (98-107); CREATININE - SERUM 0.4 mg/dL (0.6-1.2); GFR AFRICAN-AMERICAN > 60.0 ml/min (>90); GFR NON AFRICAN-AMERICAN > 60.0 ml/min; GLUCOSE 166 mg/dL (70-105); POTASSIUM SERUM 3.6 mEq/L (3.5-5.1); SODIUM SERUM 140 mEq/L (136-145)
[2018-03-28] MEDS: Hydrocodone/APAP 5mg/325mg Tab GT SCH ×3 (05:57→17:39)
[2018-03-28] MEDS: INSULIN ASPART SLIDING SCALE 100 UNITS/ML UNIT SUBQ SCH ×3 (06:02→18:21)
[2018-03-28] MEDS: Ferrous Sulfate 300 MG/5 ML UDC GT SCH (06:55)
[2018-03-28] MEDS: Potassium Chloride Elixir 20 mEq /15 mL UDC GT SCH ×2 (08:41→16:50)
[2018-03-28] MEDS: Multivitamin w/ Minerals Tab GT SCH (08:42)
[2018-03-28] MEDS: Diltiazem 30 mg Tab GT SCH ×2 (08:42→16:52)
[2018-03-28] MEDS: Levetiracetam 500 mg/5mL 5mL UDSyr *for ORAL USE ONLY GT SCH ×2 (08:43→16:52)
[2018-03-28] MEDS: D5-0.45NS w/20 mEq KCL 1,000 ML IV SCH ×2 (08:45→14:00)
[2018-03-28] MEDS: POLYETHYLENE GLYCOL 3350 17 GM PACK GT SCH ×2 (10:45→23:16)
[2018-03-28] MEDS: Meropenem 1 GM in Sodium Chloride 0.9% 100 ML IV SCH (12:55)
--- NOTE | 2018-03-28 15:32 | General Progress Note ---
Subjective - Review of Systems Service Date: 03/28/18 Subjective: awake and attentive no distress Objective - Results Result Diagrams: 03/28/18 04:35 03/28/18 04:35 Recent Labs: Laboratory Last Values WBC 13.7 Th/cmm (4.8-10.8) H D 03/28/18 04:35 RBC 2.66 Mil/cmm (3.80-5.10) L 03/28/18 04:35 Hgb 8.8 gm/dL (12-16) L 03/28/18 04:35 Hct 26.0 % (41.0-60) L 03/28/18 04:35 MCV 97.6 fl (81-100) 03/28/18 04:35 MCH 33.0 pg (27.0-31.0) H 03/28/18 04:35 MCHC Differential 33.8 pg (28.0-36.0) 03/28/18 04:35 RDW 13.2 % (11.5-20.0) 03/28/18 04:35 Plt Count 214 Th/cmm (150-400) 03/28/18 04:35 MPV 10.6 fl 03/28/18 04:35 Neutrophils % 82.6 % (40.0-80.0) H 03/28/18 04:35 Lymphocytes % 7.5 % (20.0-50.0) L 03/28/18 04:35 Monocytes % 6.4 % (2.0-10.0) 03/28/18 04:35 Eosinophils % 2.7 % (0.0-5.0) 03/28/18 04:35 Basophils % 0.8 % (0.0-2.0) 03/28/18 04:35 Neutrophils (Manual) Not Reportable 03/28/18 04:35 PT 10.3 SECONDS (9.5-11.5) 03/24/18 20:10 INR 0.99 (0.5-1.4) 03/24/18 20:10 PTT (Actin FS) 24.1 SECONDS (26.0-38.0) L 03/24/18 20:10 Sodium 140 mEq/L (136-145) 03/28/18 04:35 Potassium 3.6 mEq/L (3.5-5.1) 03/28/18 04:35 Chloride 110 mEq/L (98-107) H 03/28/18 04:35 Carbon Dioxide 22.7 mEq/L (21.0-31.0) 03/28/18 04:35 Anion Gap 10.9 (7.0-16.0) 03/28/18 04:35 BUN 13 mg/dL (7-25) 03/28/18 04:35 Creatinine 0.4 mg/dL (0.6-1.2) L 03/28/18 04:35 Est GFR ( Amer) > 60.0 ml/min (>90) 03/28/18 04:35 Est GFR (Non-Af Amer) > 60.0 ml/min 03/28/18 04:35 BUN/Creatinine Ratio 32.5 03/28/18 04:35 Glucose 166 mg/dL (70-105) H 03/28/18 04:35 POC Glucose 151 MG/DL (70 - 105) H 03/28/18 12:24 Hemoglobin A1c % 6.2 % (4.0-6.0) H 03/25/18 04:30 Whole Bld Lactic Acid 1.09 mmol/L (0.60-1.99) 03/24/18 20:10 Calcium 9.7 mg/dL (8.6-10.3) 03/28/18 04:35 Magnesium 2.0 mg/dL (1.9-2.7) 03/26/18 04:35 Total Bilirubin 0.2 mg/dL (0.3-1.0) L 03/27/18 04:40 AST 17 U/L (13-39) 03/27/18 04:40 ALT 13 U/L (7-52) 03/27/18 04:40 Alkaline Phosphatase 105 U/L (34-104) H 03/27/18 04:40 Creatine Kinase 87 U/L (30-223) 03/24/18 20:10 Troponin I 0.01 ng/mL (0.01-0.05) 03/24/18 20:10 Total Protein 6.1 gm/dL (6.0-8.3) 03/27/18 04:40 Albumin 3.8 gm/dL (3.7-5.3) 03/27/18 04:40 Globulin 2.3 gm/dL 03/27/18 04:40 Albumin/Globulin Ratio 1.7 (1.0-1.8) 03/27/18 04:40 Serum , Qual NEGATIVE (NEGATIVE) 03/24/18 20:10 Urine Source MIDSTREAM 03/24/18 20:30 Urine Color YELLOW 03/24/18 20:30 Urine Clarity CLEAR (CLEAR) 03/24/18 20:30 Urine pH 7.0 (4.6 - 8.0) 03/24/18 20:30 Ur Specific [place] 1.010 (1.005-1.030) 03/24/18 20:30 Urine Protein TRACE mg/dL (NEGATIVE) 03/24/18 20:30 Urine Glucose (UA) NEGATIVE mg/dL (NEGATIVE) 03/24/18 20:30 Urine Ketones NEGATIVE mg/dL (NEGATIVE) 03/24/18 20:30 Urine Blood NEGATIVE (NEGATIVE) 03/24/18 20:30 Urine Nitrate NEGATIVE (NEGATIVE) 03/24/18 20:30 Urine Bilirubin NEGATIVE (NEGATIVE) 03/24/18 20:30 Urine Urobilinogen 1.0 E.U./dL (0.2 - 1.0) 03/24/18 20:30 Ur Leukocyte Esterase NEGATIVE (NEGATIVE) 03/24/18 20:30 Urine RBC 0-2 /hpf (0-5) 03/24/18 20:30 Urine WBC 2-5 /hpf (0-5) 03/24/18 20:30 Ur Epithelial Cells MODERATE /lpf (FEW) 03/24/18 20:30 Urine Bacteria 1+ /hpf (NONE SEEN) H 03/24/18 20:30 Coarse Granular Casts 0-2 /lpf (NONE SEEN) H 03/24/18 20:30 Vancomycin Trough 15.5 ug/mL (5-10) H 03/26/18 15:36 - Physical Exam Vitals and I&O: Vital Signs Temp 99.7 F 03/28/18 12:00 Pulse 112 03/28/18 13:00 Resp 21 03/28/18 13:00 BP 117/69 03/28/18 13:00 Pulse Ox 100 03/28/18 13:00 Intake & Output 03/27/18 03/28/18 03/28/18 18:59 06:59 18:59 Intake Total 577.752 0915 1096.667 Balance 103.673 1284 1096.667 Weight (lbs) 43.817 kg Intake: Intake, IV Amount 262.918 3525 1096.667 D5-0.45NS w/20 mEq KCL 1, 423.932 8931 996.667 000 ml @ 100 mls/hr IV . Q10H [facility] Rx#:[id number] Meropenem 1 gm In Sodium 100 100 100 Chloride 0.9% 100 ml @ 100 mls/hr IV Q12H [facility] Rx #:[id number] Vancomycin HCl 1 gm In 250 250 Sodium Chloride 0.9% 250 ml @ 165 mls/hr IV Q12H [facility] Rx#:[id number] Oral 0 Tube Feeding 840 Other 150 Other: # Voids 3 # Bowel Movements 1 Stool Characteristics Soft Soft Brown Brown Green Green Weight Source Bedscale Active Medications: Current Medications Acetaminophen (Tylenol) 650 mg GT Q6HR PRN PRN Reason: Pain or Fever >101 Stop: 05/23/18 22:40 Last Admin: 03/25/18 11:00 Dose: 650 mg Acetaminophen/Hydrocodone Bitart ([place] 5mg/325mg) 1 tab GT Q6HR [facility] Stop: 05/24/18 00:00 Last Admin: 03/28/18 12:00 Dose: 1 tab Albuterol/Ipratropium (Duoneb Neb) 3 ml HHN Q6HRT [facility] Stop: 05/24/18 00:59 Last Admin: 03/28/18 12:38 Dose: 3 ml Amantadine HCl (Symmetrel) 100 mg GT Q12HR [facility] Stop: 05/24/18 00:44 Last Admin: 03/28/18 09:10 Dose: 100 mg Amlodipine Besylate (Norvasc) 10 mg GT DAILY [facility] Stop: 05/24/18 08:59 Last Admin: 03/28/18 08:42 Dose: 10 mg Ascorbic Acid (Vitamin C) 500 mg GT BID [facility] Stop: 05/24/18 08:59 Last Admin: 03/28/18 08:42 Dose: 500 mg Diltiazem HCl (Cardizem) 30 mg GT BID [facility] Stop: 05/24/18 08:59 Last Admin: 03/28/18 08:42 Dose: 30 mg Diphenhydramine HCl (Benadryl) 12.5 mg GT Q6H PRN PRN Reason: Itching Stop: 05/23/18 22:40 Last Admin: 03/26/18 21:12 Dose: 12.5 mg Docusate Sodium (Colace) 100 mg PO BID [facility] Stop: 05/24/18 08:59 Last Admin: 03/28/18 08:42 Dose: 100 mg Famotidine (Pepcid) 20 mg GT DAILY [facility] Stop: 05/24/18 08:59 Last Admin: 03/28/18 08:42 Dose: 20 mg Ferrous Sulfate (Iron) 330 mg GT QDAC [facility] Stop: 05/24/18 07:29 Last Admin: 03/28/18 06:55 Dose: 330 mg Heparin Sodium (Porcine) (Heparin) 5,000 units SUBQ Q12HR [facility] Stop: 05/24/18 00:44 Last Admin: 03/28/18 08:43 Dose: 5,000 units Vancomycin HCl 1 gm/ Sodium (Chloride) 250 mls @ 165 mls/hr IV Q12H [facility] Stop: 05/24/18 15:59 Last Infusion: 03/28/18 05:27 Dose: Infused Potassium Chloride/Dextrose/Sod Cl (D5-0.45ns W/20 Meq Kcl) 1,000 mls @ 40 mls/ hr IV .Q24H [facility] Stop: 05/27/18 13:44 Piperacillin Sod/Tazobactam (Sod 4.5 gm/ Sodium Chloride) 100 mls @ 100 mls/hr IV Q6HR [facility] Stop: 05/27/18 17:59 Insulin Aspart (Novolog Insulin Sliding Scale) 0 units SUBQ Q6HR [facility]; Protocol Stop: 05/24/18 00:00 Last Admin: 03/28/18 12:43 Dose: 3 units Insulin Detemir (Levemir Insulin) 10 units SUBQ HS [facility] Stop: 05/24/18 20:59 Last Admin: 03/27/18 20:37 Dose: Not Given Levetiracetam (Keppra) 500 mg GT BID [facility] Stop: 05/24/18 08:59 Last Admin: 03/28/18 08:43 Dose: 500 mg Lorazepam (Ativan) 1 mg IVP Q4HR PRN; Protocol PRN Reason: Agitation Stop: 05/26/18 14:37 Last Admin: 03/28/18 09:12 Dose: 1 mg Magnesium Hydroxide (Milk Of Magnesia) 30 ml GT Q6H PRN PRN Reason: Constipation Stop: 05/23/18 22:40 Miscellaneous (Vancomycin Iv Per Pharmacy) 1 ea MC PRN [facility] Stop: 05/24/18 14:44 Miscellaneous (Zosyn Iv Per Pharmacy) 1 ea MC PRN PRN PRN Reason: PROTOCOL Stop: 05/27/18 13:39 Morphine Sulfate (Morphine) 4 mg IVP Q6H PRN PRN Reason: Pain (Severe) Stop: 05/26/18 17:10 Ondansetron HCl (Zofran) 4 mg IV Q4H PRN PRN Reason: Nausea / Vomiting Stop: 05/23/18 22:44 Polyethylene Glycol (Miralax) 17 gm GT Q12H [facility] Stop: 05/23/18 22:44 Last Admin: 03/28/18 10:45 Dose: 17 gm Potassium Chloride (Potassium Chloride Elixir) 40 meq GT BID [facility] Stop: 05/24/18 08:59 Last Admin: 03/28/18 08:41 Dose: 40 meq Senna (Senna) 8.6 mg GT DAILY [facility] Stop: 05/24/18 08:59 Last Admin: 03/28/18 08:42 Dose: 8.6 mg Simvastatin (Zocor) 10 mg GT HS [facility] Stop: 05/24/18 20:59 Last Admin: 03/27/18 20:39 Dose: 10 mg Sodium Phosphate (Fleet Enema) 135 ml RC PRN PRN PRN Reason: Constipation Stop: 05/23/18 22:40 General: No acute distress HEENT: Atraumatic, PERRLA Neck: Supple, JVD Cardiovascular: Regular rate, Normal S1, Normal S2 Lungs: Clear to auscultation Abdomen: Bowel sounds, Soft - Procedures Procedures: Procedures Procedure Code Date RESPIRATORY VENTILATION, 24-96 CONSECUTIVE HOURS [id number] 03/24/18 Assessment/Plan - Assessment Assessment: 1.UTI. 2.SEPSIS. 3.RESPIRATORY FAILURE. 4.SAH. 5.DM. 6.ANEMIA. - Plan Plan: continue current treatment Nutritional Asmnt/Malnutr-PDOC - Dietary Evaluation Malnutrition Findings (Please click <Entered> for more info): Nutritional Asmnt/Malnutrition Start: 03/25/18 13: 56 Text: Status: Complete Freq: Protocol: Document 03/25/18 14:40 QAMAR (Rec: 03/25/18 14:51 QAMAR [email or web address]) Nutritional Asmnt/Malnutrition Patient General Information Nutritional Screening High Risk Diagnosis urosepsis, fever Pertinent Medical Hx/Surgical Hx HTN, asthma/COPD, PEG/Gtube Subjective Information Pt seen resting in bed, on trach. TF was running at 70ml/ hr at this time. Current Diet Order/ Nutrition Support glucerna 1.2 70ml x 20hr Pertinent Medications vit C, colace, iron, novolog, levemir, miralax, D5-0.45ns w 20meq kcl, senna Pertinent Labs 03/25 K 3.1, Cl 13, Cr 0.5, glucose 223., POC 145-222 03/24 Na 146, cl 112, BUN 28, glucose 161 Nutritional Hx/Data Height 1.47 m Height (Calculated Centimeters) 147.3 Current Weight (lbs) 40.823 kg Weight (Calculated Kilograms) 40.8 Weight (Calculated Grams) 15044.3 [place] Body Weight 96 Body Mass Index (BMI) 18.8 Weight Status Approriate GI Symptoms GI Symptoms None Last BM 03/25 Difficult in: None Usual diet at home diabetisource 70ml x 20hr daily at care facility per chart Skin Integrity/Comment: intact jason [place] Estimated Nutritional Goals BEE in Kcals: Using Current wt Calories/Kcals/Kg 30-35 Kcals Calculated 5925-5380 Protein: Using Current wt Protein g/k.2-1.4 Protein Calculated 49-57 Fluid: ml 1230-1435ml (1ml/kcal) Nutritional Problem 2. Problem Problem increased nutrition needs Etiology increased metabolic demand Signs/Symptoms: dx of urosepsis, fever 1. Problem Problem altered nutrition related labs Etiology possible endocrine dysfunction , electrolytes imbalance Signs/Symptoms: glucose 161-165, POC 145-222, K 3.1 Intervention/Recommendation Comments 1. Continue with current TF regimen. It provides 1680kcal, 84g protein, 1127ml free water, meeting 100% of nutritional needs 2. MD to adjust insulin regimen for optimal glycemic control 3. Monitor TF rate, tolerance, wt, skin integrity and labs 4. F/U as high risk in 2-3 days, 03/27-03/28 Expected Outcomes/Goals Expected Outcomes/Goals 1. Pt to meet at least 75% of nutritional needs via nutrition support with tolerance 2. Wt stability, skin to remain intact, labs to approach WNL.
--- NOTE | 2018-03-28 19:35 | Infectious Disease Prog Note ---
Infectious Disease Subjective - Review of Systems Service Date: 03/28/18 Events since last encounter: Non significant. Infectious Disease Objective - Results Result Diagrams: 03/28/18 04:35 03/28/18 04:35 Recent Labs: Laboratory Last Values WBC 13.7 Th/cmm (4.8-10.8) H D 03/28/18 04:35 RBC 2.66 Mil/cmm (3.80-5.10) L 03/28/18 04:35 Hgb 8.8 gm/dL (12-16) L 03/28/18 04:35 Hct 26.0 % (41.0-60) L 03/28/18 04:35 MCV 97.6 fl (81-100) 03/28/18 04:35 MCH 33.0 pg (27.0-31.0) H 03/28/18 04:35 MCHC Differential 33.8 pg (28.0-36.0) 03/28/18 04:35 RDW 13.2 % (11.5-20.0) 03/28/18 04:35 Plt Count 214 Th/cmm (150-400) 03/28/18 04:35 MPV 10.6 fl 03/28/18 04:35 Neutrophils % 82.6 % (40.0-80.0) H 03/28/18 04:35 Lymphocytes % 7.5 % (20.0-50.0) L 03/28/18 04:35 Monocytes % 6.4 % (2.0-10.0) 03/28/18 04:35 Eosinophils % 2.7 % (0.0-5.0) 03/28/18 04:35 Basophils % 0.8 % (0.0-2.0) 03/28/18 04:35 Neutrophils (Manual) Not Reportable 03/28/18 04:35 PT 10.3 SECONDS (9.5-11.5) 03/24/18 20:10 INR 0.99 (0.5-1.4) 03/24/18 20:10 PTT (Actin FS) 24.1 SECONDS (26.0-38.0) L 03/24/18 20:10 Sodium 140 mEq/L (136-145) 03/28/18 04:35 Potassium 3.6 mEq/L (3.5-5.1) 03/28/18 04:35 Chloride 110 mEq/L (98-107) H 03/28/18 04:35 Carbon Dioxide 22.7 mEq/L (21.0-31.0) 03/28/18 04:35 Anion Gap 10.9 (7.0-16.0) 03/28/18 04:35 BUN 13 mg/dL (7-25) 03/28/18 04:35 Creatinine 0.4 mg/dL (0.6-1.2) L 03/28/18 04:35 Est GFR ( Amer) > 60.0 ml/min (>90) 03/28/18 04:35 Est GFR (Non-Af Amer) > 60.0 ml/min 03/28/18 04:35 BUN/Creatinine Ratio 32.5 03/28/18 04:35 Glucose 166 mg/dL (70-105) H 03/28/18 04:35 POC Glucose 168 MG/DL (70 - 105) H 03/28/18 18:18 Hemoglobin A1c % 6.2 % (4.0-6.0) H 03/25/18 04:30 Whole Bld Lactic Acid 1.09 mmol/L (0.60-1.99) 03/24/18 20:10 Calcium 9.7 mg/dL (8.6-10.3) 03/28/18 04:35 Magnesium 2.0 mg/dL (1.9-2.7) 03/26/18 04:35 Total Bilirubin 0.2 mg/dL (0.3-1.0) L 03/27/18 04:40 AST 17 U/L (13-39) 03/27/18 04:40 ALT 13 U/L (7-52) 03/27/18 04:40 Alkaline Phosphatase 105 U/L (34-104) H 03/27/18 04:40 Creatine Kinase 87 U/L (30-223) 03/24/18 20:10 Troponin I 0.01 ng/mL (0.01-0.05) 03/24/18 20:10 Total Protein 6.1 gm/dL (6.0-8.3) 03/27/18 04:40 Albumin 3.8 gm/dL (3.7-5.3) 09/01/18 04:40 Globulin 2.3 gm/dL 03/27/18 04:40 Albumin/Globulin Ratio 1.7 (1.0-1.8) 03/27/18 04:40 Serum , Qual NEGATIVE (NEGATIVE) 03/24/18 20:10 Urine Source MIDSTREAM 03/24/18 20:30 Urine Color YELLOW 03/24/18 20:30 Urine Clarity CLEAR (CLEAR) 03/24/18 20:30 Urine pH 7.0 (4.6 - 8.0) 03/24/18 20:30 Ur Specific [place] 1.010 (1.005-1.030) 03/24/18 20:30 Urine Protein TRACE mg/dL (NEGATIVE) 03/24/18 20:30 Urine Glucose (UA) NEGATIVE mg/dL (NEGATIVE) 03/24/18 20:30 Urine Ketones NEGATIVE mg/dL (NEGATIVE) 03/24/18 20:30 Urine Blood NEGATIVE (NEGATIVE) 03/24/18 20:30 Urine Nitrate NEGATIVE (NEGATIVE) 03/24/18 20:30 Urine Bilirubin NEGATIVE (NEGATIVE) 03/24/18 20:30 Urine Urobilinogen 1.0 E.U./dL (0.2 - 1.0) 03/24/18 20:30 Ur Leukocyte Esterase NEGATIVE (NEGATIVE) 03/24/18 20:30 Urine RBC 0-2 /hpf (0-5) 03/24/18 20:30 Urine WBC 2-5 /hpf (0-5) 03/24/18 20:30 Ur Epithelial Cells MODERATE /lpf (FEW) 03/24/18 20:30 Urine Bacteria 1+ /hpf (NONE SEEN) H 03/24/18 20:30 Coarse Granular Casts 0-2 /lpf (NONE SEEN) H 03/24/18 20:30 Vancomycin Trough 22.9 ug/mL (5-10) H 03/28/18 15:12 - Physical Exam Vitals and I&O: Vital Signs Temp 98.7 F 03/28/18 16:00 Pulse 102 03/28/18 19:08 Resp 24 03/28/18 19:00 BP 111/59 03/28/18 19:00 Pulse Ox 100 03/28/18 19:08 Intake & Output 03/28/18 03/28/18 03/29/18 06:59 18:59 06:59 Intake Total 2340 1346.667 997 Balance 2340 1346.667 997 Weight (lbs) 43.817 kg 43.636 kg Intake: Intake, IV Amount 1350 1346.667 D5-0.45NS w/20 mEq KCL 1, 1000 996.667 000 ml @ 100 mls/hr IV . Q10H [facility] Rx#:[id number] Meropenem 1 gm In Sodium 100 100 Chloride 0.9% 100 ml @ 100 mls/hr IV Q12H [facility] Rx #:[id number] Vancomycin HCl 1 gm In 250 250 Sodium Chloride 0.9% 250 ml @ 165 mls/hr IV Q12H [facility] Rx#:[id number] Oral 0 Tube Feeding 840 497 Other 150 500 Other: # Voids 3 3 # Bowel Movements 1 0 Stool Characteristics Soft Brown Green Weight Source Bedscale Bedscale Active Medications: Current Medications Acetaminophen (Tylenol) 650 mg GT Q6HR PRN PRN Reason: Pain or Fever >101 Stop: 05/23/18 22:40 Last Admin: 03/25/18 11:00 Dose: 650 mg Acetaminophen/Hydrocodone Bitart ([place] 5mg/325mg) 1 tab GT Q6HR [facility] Stop: 05/24/18 00:00 Last Admin: 03/28/18 17:39 Dose: 1 tab Albuterol/Ipratropium (Duoneb Neb) 3 ml HHN Q6HRT [facility] Stop: 05/24/18 00:59 Last Admin: 03/28/18 19:07 Dose: 3 ml Amantadine HCl (Symmetrel) 100 mg GT Q12HR [facility] Stop: 05/24/18 00:44 Last Admin: 03/28/18 09:10 Dose: 100 mg Amlodipine Besylate (Norvasc) 10 mg GT DAILY [facility] Stop: 05/24/18 08:59 Last Admin: 03/28/18 08:42 Dose: 10 mg Ascorbic Acid (Vitamin C) 500 mg GT BID [facility] Stop: 05/24/18 08:59 Last Admin: 03/28/18 16:52 Dose: 500 mg Diltiazem HCl (Cardizem) 30 mg GT BID [facility] Stop: 05/24/18 08:59 Last Admin: 03/28/18 16:52 Dose: 30 mg Diphenhydramine HCl (Benadryl) 12.5 mg GT Q6H PRN PRN Reason: Itching Stop: 05/23/18 22:40 Last Admin: 03/26/18 21:12 Dose: 12.5 mg Docusate Sodium (Colace) 100 mg PO BID [facility] Stop: 05/24/18 08:59 Last Admin: 03/28/18 16:54 Dose: 100 mg Famotidine (Pepcid) 20 mg GT DAILY [facility] Stop: 05/24/18 08:59 Last Admin: 03/28/18 08:42 Dose: 20 mg Ferrous Sulfate (Iron) 330 mg GT QDAC [facility] Stop: 05/24/18 07:29 Last Admin: 03/28/18 06:55 Dose: 330 mg Heparin Sodium (Porcine) (Heparin) 5,000 units SUBQ Q12HR [facility] Stop: 05/24/18 00:44 Last Admin: 03/28/18 08:43 Dose: 5,000 units Vancomycin HCl 1 gm/ Sodium (Chloride) 250 mls @ 165 mls/hr IV Q12H [facility] Stop: 05/24/18 15:59 Last Infusion: 03/28/18 17:41 Dose: Infused Potassium Chloride/Dextrose/Sod Cl (D5-0.45ns W/20 Meq Kcl) 1,000 mls @ 40 mls/ hr IV .Q24H [facility] Stop: 05/27/18 13:44 Last Admin: 03/28/18 14:00 Dose: 40 mls/hr Piperacillin Sod/Tazobactam (Sod 4.5 gm/ Sodium Chloride) 100 mls @ 100 mls/hr IV Q6HR [facility] Stop: 05/27/18 17:59 Last Admin: 03/28/18 17:40 Dose: 100 mls/hr Insulin Aspart (Novolog Insulin Sliding Scale) 0 units SUBQ Q6HR [facility]; Protocol Stop: 05/24/18 00:00 Last Admin: 03/28/18 18:21 Dose: 3 units Insulin Detemir (Levemir Insulin) 10 units SUBQ HS [facility] Stop: 05/24/18 20:59 Last Admin: 03/27/18 20:37 Dose: Not Given Levetiracetam (Keppra) 500 mg GT BID [facility] Stop: 05/24/18 08:59 Last Admin: 03/28/18 16:52 Dose: 500 mg Lorazepam (Ativan) 1 mg IVP Q4HR PRN; Protocol PRN Reason: Agitation Stop: 05/26/18 14:37 Last Admin: 03/28/18 15:49 Dose: 1 mg Magnesium Hydroxide (Milk Of Magnesia) 30 ml GT Q6H PRN PRN Reason: Constipation Stop: 05/23/18 22:40 Miscellaneous (Vancomycin Iv Per Pharmacy) 1 ea MC PRN [facility] Stop: 05/24/18 14:44 Miscellaneous (Zosyn Iv Per Pharmacy) 1 ea PRN PRN PRN Reason: PROTOCOL Stop: 05/27/18 13:39 Morphine Sulfate (Morphine) 4 mg IVP Q6H PRN PRN Reason: Pain (Severe) Stop: 05/26/18 17:10 Ondansetron HCl (Zofran) 4 mg IV Q4H PRN PRN Reason: Nausea / Vomiting Stop: 05/23/18 22:44 Polyethylene Glycol (Miralax) 17 gm GT Q12H [facility] Stop: 05/23/18 22:44 Last Admin: 03/28/18 10:45 Dose: 17 gm Potassium Chloride (Potassium Chloride Elixir) 40 meq GT BID [facility] Stop: 05/24/18 08:59 Last Admin: 03/28/18 16:50 Dose: 40 meq Senna (Senna) 8.6 mg GT DAILY [facility] Stop: 05/24/18 08:59 Last Admin: 03/28/18 08:42 Dose: 8.6 mg Simvastatin (Zocor) 10 mg GT HS [facility] Stop: 05/24/18 20:59 Last Admin: 03/27/18 20:39 Dose: 10 mg Sodium Phosphate (Fleet Enema) 135 ml RC PRN PRN PRN Reason: Constipation Stop: 05/23/18 22:40 General: no acute distress, other (Pn the ventilator) HEENT: atraumatic, normocephalic, PERRLA Neck: supple, no thyromegaly Cardiovascular: S1S2, regular Lungs: clear to percussion, rhonchi, other (trach site is clear) Abdomen: soft, no tender, no distended, no mass, no hepatomegaly, no splenomegaly Extremities: no cyanosis, no clubbing, no edema Neurological: other (unable to follow commands, opens eyes.) Skin: intact - Procedures Procedures: Procedures Procedure Code Date RESPIRATORY VENTILATION, 24-96 CONSECUTIVE HOURS [id number] 03/24/18 Infectious Disease Assmt/Plan - Assessment Assessment: 1. SEPSIS. 2. UTI. 3. RESPIRATORY FAILURE. 4. PSEUDOMONAS PNEUMONIA. 5. DM2. 6. ANEMIA. 7. SAH. - Plan Plan: CONTINUE VANCOMYCIN IV AND ZOSYN. Nutritional Asmnt/Malnutr-PDOC - Dietary Evaluation Malnutrition Findings (Please click <Entered> for more info): Nutritional Asmnt/Malnutrition Start: 03/25/18 13: 56 Text: Status: Complete Freq: Protocol: Document 03/25/18 14:40 DESIREEG (Rec: 03/25/18 14:51 LCHENG [email or web address]) Nutritional Asmnt/Malnutrition Patient General Information Nutritional Screening High Risk Diagnosis urosepsis, fever Pertinent Medical Hx/Surgical Hx HTN, asthma/COPD, PEG/Gtube Subjective Information Pt seen resting in bed, on trach. TF was running at 70ml/ hr at this time. Current Diet Order/ Nutrition Support glucerna 1.2 70ml x 20hr Pertinent Medications vit C, colace, iron, novolog, levemir, miralax, D5-0.45ns w 20meq kcl, senna Pertinent Labs 03/25 K 3.1, Cl 13, Cr 0.5, glucose 223., POC 145-222 03/24 Na 146, cl 112, BUN 28, glucose 161 Nutritional Hx/Data Height 1.47 m Height (Calculated Centimeters) 147.3 Current Weight (lbs) 40.823 kg Weight (Calculated Kilograms) 40.8 Weight (Calculated Grams) 44012.3 [place] Body Weight 96 Body Mass Index (BMI) 18.8 Weight Status Approriate GI Symptoms GI Symptoms None Last BM 03/25 Difficult in: None Usual diet at home diabetisource 70ml x 20hr daily at care facility per chart Skin Integrity/Comment: intact jason 13 Estimated Nutritional Goals BEE in Kcals: Using Current wt Calories/Kcals/Kg 30-35 Kcals Calculated 1444-4937 Protein: Using Current wt Protein g/k.2-1.4 Protein Calculated 49-57 Fluid: ml 1230-1435ml (1ml/kcal) Nutritional Problem 2. Problem Problem increased nutrition needs Etiology increased metabolic demand Signs/Symptoms: dx of urosepsis, fever 1. Problem Problem altered nutrition related labs Etiology possible endocrine dysfunction , electrolytes imbalance Signs/Symptoms: glucose 161-165, POC 145-222, K 3.1 Intervention/Recommendation Comments 1. Continue with current TF regimen. It provides 1680kcal, 84g protein, 1127ml free water, meeting 100% of nutritional needs 2. MD to adjust insulin regimen for optimal glycemic control 3. Monitor TF rate, tolerance, wt, skin integrity and labs 4. F/U as high risk in 2-3 days, 03/27-03/28 Expected Outcomes/Goals Expected Outcomes/Goals 1. Pt to meet at least 75% of nutritional needs via nutrition support with tolerance 2. Wt stability, skin to remain intact, labs to approach WNL.
[2018-03-28] MEDS: Insulin Detemir 100 units/mL 10mL Vial SUBQ SCH (20:47)
[2018-03-29] MEDS: INSULIN ASPART SLIDING SCALE 100 UNITS/ML UNIT SUBQ SCH ×5 (00:01→23:54)
[2018-03-29] MEDS: Hydrocodone/APAP 5mg/325mg Tab GT SCH ×5 (00:04→23:44)
[2018-03-29] MEDS: Albuterol/Ipratropium Neb 3 ML AERS HHN SCH ×4 (01:55→19:18)
[2018-03-29 04:43] LABS: HEMOGLOBIN 9.3 gm/dL (12-16); LYMPHOCYTE ABSOLUTE 1.5 Th/cmm (1.5-3.0); MONOCYTE ABSOLUTE 0.8 Th/cmm (0.3-1.0); NEUTROPHILE ABSOLUTE 10.9 Th/cmm (1.8-8.0); RED CELL DISTRIBUTION WIDTH 13.1 % (11.5-20.0)
[2018-03-29 04:50] LABS: % BASOPHILS 0.1 % (0.0-2.0); % EOSINOPHILS 3.7 % (0.0-5.0); % LYMPHOCYTES 11.2 % (20.0-50.0); % MONOCYTES 6.2 % (2.0-10.0); % NEUTROPHILS 78.8 % (40.0-80.0); EOSINOPHILE ABSOLUTE 0.5 Th/cmm (0.1-0.4); HEMATOCRIT 26.9 % (41.0-60); MEAN CORPUSCULAR HEMOGLOBIN 33.5 pg (27.0-31.0); MEAN CORPUSCULAR HGB CONC 34.6 pg (28.0-36.0); MEAN PLATELET VOLUME 10.1 fl; PLATELET COUNT 211 Th/cmm (150-400); RED BLOOD COUNT 2.78 Mil/cmm (3.80-5.10); WHITE BLOOD COUNT 13.7 Th/cmm (4.8-10.8)
[2018-03-29 05:44] LABS: ALB/GLOB RATIO 1.2 (1.0-1.8); ALBUMIN 3.9 gm/dL (3.7-5.3); ALKALINE PHOSPHATASE 157 U/L (34-104); ANION GAP 15.2 (7.0-16.0); BILIRUBIN,TOTAL 0.3 mg/dL (0.3-1.0); BUN - UREA NITROGEN 14 mg/dL (7-25); CALCIUM SERUM 10.2 mg/dL (8.6-10.3); CARBON DIOXIDE 21.7 mEq/L (21.0-31.0); CHLORIDE 106 mEq/L (98-107); CREATININE - SERUM 0.5 mg/dL (0.6-1.2); GFR AFRICAN-AMERICAN > 60.0 ml/min (>90); GFR NON AFRICAN-AMERICAN > 60.0 ml/min; GLUCOSE 149 mg/dL (70-105); POTASSIUM SERUM 3.9 mEq/L (3.5-5.1); SGOT 22 U/L (13-39); SGPT/ALT 22 U/L (7-52); SODIUM SERUM 139 mEq/L (136-145); TOTAL PROTEIN,SERUM 7.3 gm/dL (6.0-8.3)
[2018-03-29] MEDS: Ferrous Sulfate 300 MG/5 ML UDC GT SCH (06:29)
[2018-03-29] MEDS: Diltiazem 30 mg Tab GT SCH ×2 (08:46→16:08)
[2018-03-29] MEDS: Potassium Chloride Elixir 20 mEq /15 mL UDC GT SCH ×2 (08:46→16:08)
[2018-03-29] MEDS: Multivitamin w/ Minerals Tab GT SCH (08:46)
[2018-03-29] MEDS: Levetiracetam 500 mg/5mL 5mL UDSyr *for ORAL USE ONLY GT SCH ×2 (08:46→16:08)
[2018-03-29] MEDS: POLYETHYLENE GLYCOL 3350 17 GM PACK GT SCH ×2 (10:20→22:18)
--- NOTE | 2018-03-29 15:21 | General Progress Note ---
Subjective - Review of Systems Service Date: 03/29/18 Subjective: awake and attentive no distress Objective - Results Result Diagrams: 03/29/18 04:20 03/29/18 04:20 Recent Labs: Laboratory Last Values WBC 13.7 Th/cmm (4.8-10.8) H 03/29/18 04:20 RBC 2.78 Mil/cmm (3.80-5.10) L 03/29/18 04:20 Hgb 9.3 gm/dL (12-16) L 03/29/18 04:20 Hct 26.9 % (41.0-60) L 03/29/18 04:20 MCV 97.0 fl (81-100) 03/29/18 04:20 MCH 33.5 pg (27.0-31.0) H 03/29/18 04:20 MCHC Differential 34.6 pg (28.0-36.0) 03/29/18 04:20 RDW 13.1 % (11.5-20.0) 03/29/18 04:20 Plt Count 211 Th/cmm (150-400) 03/29/18 04:20 MPV 10.1 fl 03/29/18 04:20 Neutrophils % 78.8 % (40.0-80.0) 03/29/18 04:20 Lymphocytes % 11.2 % (20.0-50.0) L 03/29/18 04:20 Monocytes % 6.2 % (2.0-10.0) 03/29/18 04:20 Eosinophils % 3.7 % (0.0-5.0) 03/29/18 04:20 Basophils % 0.1 % (0.0-2.0) 03/29/18 04:20 Neutrophils (Manual) Not Reportable 03/28/18 04:35 PT 10.3 SECONDS (9.5-11.5) 03/24/18 20:10 INR 0.99 (0.5-1.4) 03/24/18 20:10 PTT (Actin FS) 24.1 SECONDS (26.0-38.0) L 03/24/18 20:10 Sodium 139 mEq/L (136-145) 03/29/18 04:20 Potassium 3.9 mEq/L (3.5-5.1) 03/29/18 04:20 Chloride 106 mEq/L (98-107) 03/29/18 04:20 Carbon Dioxide 21.7 mEq/L (21.0-31.0) 03/29/18 04:20 Anion Gap 15.2 (7.0-16.0) 03/29/18 04:20 BUN 14 mg/dL (7-25) 03/29/18 04:20 Creatinine 0.5 mg/dL (0.6-1.2) L 03/29/18 04:20 Est GFR ( Amer) > 60.0 ml/min (>90) 03/29/18 04:20 Est GFR (Non-Af Amer) > 60.0 ml/min 03/29/18 04:20 BUN/Creatinine Ratio 28.0 03/29/18 04:20 Glucose 149 mg/dL (70-105) H 03/29/18 04:20 POC Glucose 181 MG/DL (70 - 105) H 03/29/18 12:21 Hemoglobin A1c % 6.2 % (4.0-6.0) H 03/25/18 04:30 Whole Bld Lactic Acid 1.09 mmol/L (0.60-1.99) 03/24/18 20:10 Calcium 10.2 mg/dL (8.6-10.3) 03/29/18 04:20 Magnesium 2.0 mg/dL (1.9-2.7) 03/26/18 04:35 Total Bilirubin 0.3 mg/dL (0.3-1.0) 03/29/18 04:20 AST 22 U/L (13-39) 03/29/18 04:20 ALT 22 U/L (7-52) 03/29/18 04:20 Alkaline Phosphatase 157 U/L (34-104) H 03/29/18 04:20 Creatine Kinase 87 U/L (30-223) 03/24/18 20:10 Troponin I 0.01 ng/mL (0.01-0.05) 03/24/18 20:10 Total Protein 7.3 gm/dL (6.0-8.3) 03/29/18 04:20 Albumin 3.9 gm/dL (3.7-5.3) 03/29/18 04:20 Globulin 3.4 gm/dL 03/29/18 04:20 Albumin/Globulin Ratio 1.2 (1.0-1.8) 03/29/18 04:20 Serum , Qual NEGATIVE (NEGATIVE) 03/24/18 20:10 Urine Source MIDSTREAM 03/24/18 20:30 Urine Color YELLOW 03/24/18 20:30 Urine Clarity CLEAR (CLEAR) 03/24/18 20:30 Urine pH 7.0 (4.6 - 8.0) 03/24/18 20:30 Ur Specific [place] 1.010 (1.005-1.030) 03/24/18 20:30 Urine Protein TRACE mg/dL (NEGATIVE) 03/24/18 20:30 Urine Glucose (UA) NEGATIVE mg/dL (NEGATIVE) 03/24/18 20:30 Urine Ketones NEGATIVE mg/dL (NEGATIVE) 03/24/18 20:30 Urine Blood NEGATIVE (NEGATIVE) 03/24/18 20:30 Urine Nitrate NEGATIVE (NEGATIVE) 03/24/18 20:30 Urine Bilirubin NEGATIVE (NEGATIVE) 03/24/18 20:30 Urine Urobilinogen 1.0 E.U./dL (0.2 - 1.0) 03/24/18 20:30 Ur Leukocyte Esterase NEGATIVE (NEGATIVE) 03/24/18 20:30 Urine RBC 0-2 /hpf (0-5) 03/24/18 20:30 Urine WBC 2-5 /hpf (0-5) 03/24/18 20:30 Ur Epithelial Cells MODERATE /lpf (FEW) 03/24/18 20:30 Urine Bacteria 1+ /hpf (NONE SEEN) H 03/24/18 20:30 Coarse Granular Casts 0-2 /lpf (NONE SEEN) H 03/24/18 20:30 Vancomycin Trough 22.9 ug/mL (5-10) H 03/28/18 15:12 - Physical Exam Vitals and I&O: Vital Signs Temp 100.0 F 03/29/18 13:00 Pulse 105 03/29/18 15:02 Resp 14 03/29/18 14:00 BP 99/64 03/29/18 14:00 Pulse Ox 100 03/29/18 15:02 Intake & Output 03/28/18 03/29/18 03/29/18 18:59 06:59 18:59 Intake Total 2659.019 2109 100 Balance 9245.654 1663 100 Weight (lbs) 43.636 kg Intake: Intake, IV Amount 1346.667 550 100 D5-0.45NS w/20 mEq KCL 1, 996.667 000 ml @ 100 mls/hr IV . Q10H [facility] Rx#:[id number] Meropenem 1 gm In Sodium 100 Chloride 0.9% 100 ml @ 100 mls/hr IV Q12H [facility] Rx #:[id number] Piperacillin Sodium/ 300 100 Tazobact 4.5 gm In Sodium Chloride 0.9% 100 ml @ 100 mls/hr IV Q6HR [facility] Rx #:[id number] Vancomycin HCl 1 gm In 250 250 Sodium Chloride 0.9% 250 ml @ 165 mls/hr IV Q12H [facility] Rx#:[id number] Tube Feeding 497 Other 500 Other: # Voids 3 # Bowel Movements 0 Stool Characteristics Liquid Brown Weight Source Bedscale Active Medications: Current Medications Acetaminophen (Tylenol) 650 mg GT Q6HR PRN PRN Reason: Pain or Fever >101 Stop: 05/23/18 22:40 Last Admin: 03/29/18 11:08 Dose: 650 mg Acetaminophen/Hydrocodone Bitart ([place] 5mg/325mg) 1 tab GT Q6HR [facility] Stop: 05/24/18 00:00 Last Admin: 03/29/18 11:06 Dose: Not Given Albuterol/Ipratropium (Duoneb Neb) 3 ml HHN Q6HRT [facility] Stop: 05/24/18 00:59 Last Admin: 03/29/18 12:56 Dose: 3 ml Amantadine HCl (Symmetrel) 100 mg GT Q12HR [facility] Stop: 05/24/18 00:44 Last Admin: 03/29/18 08:47 Dose: 100 mg Amlodipine Besylate (Norvasc) 10 mg GT DAILY [facility] Stop: 05/24/18 08:59 Last Admin: 03/29/18 09:36 Dose: 10 mg Ascorbic Acid (Vitamin C) 500 mg GT BID [facility] Stop: 05/24/18 08:59 Last Admin: 03/29/18 08:46 Dose: 500 mg Chlorhexidine Gluconate (Peridex) 15 ml MM 0800,1999 [facility] Stop: 05/28/18 19:59 Diltiazem HCl (Cardizem) 30 mg GT BID [facility] Stop: 05/24/18 08:59 Last Admin: 03/29/18 08:46 Dose: 30 mg Diphenhydramine HCl (Benadryl) 12.5 mg GT Q6H PRN PRN Reason: Itching Stop: 05/23/18 22:40 Last Admin: 03/26/18 21:12 Dose: 12.5 mg Docusate Sodium (Colace) 100 mg PO BID [facility] Stop: 05/24/18 08:59 Last Admin: 03/29/18 08:46 Dose: 100 mg Famotidine (Pepcid) 20 mg GT DAILY [facility] Stop: 05/24/18 08:59 Last Admin: 03/29/18 08:46 Dose: 20 mg Ferrous Sulfate (Iron) 330 mg GT QDAC [facility] Stop: 05/24/18 07:29 Last Admin: 03/29/18 06:29 Dose: 330 mg Heparin Sodium (Porcine) (Heparin) 5,000 units SUBQ Q12HR [facility] Stop: 05/24/18 00:44 Last Admin: 03/29/18 08:46 Dose: 5,000 units Vancomycin HCl 1 gm/ Sodium (Chloride) 250 mls @ 165 mls/hr IV Q12H [facility] Stop: 05/24/18 15:59 Last Infusion: 03/29/18 05:30 Dose: Infused Potassium Chloride/Dextrose/Sod Cl (D5-0.45ns W/20 Meq Kcl) 1,000 mls @ 40 mls/ hr IV .Q24H [facility] Stop: 05/27/18 13:44 Last Admin: 03/28/18 14:00 Dose: 40 mls/hr Piperacillin Sod/Tazobactam (Sod 4.5 gm/ Sodium Chloride) 100 mls @ 100 mls/hr IV Q6HR [facility] Stop: 05/27/18 17:59 Last Infusion: 03/29/18 12:10 Dose: Infused Insulin Aspart (Novolog Insulin Sliding Scale) 0 units SUBQ Q6HR [facility]; Protocol Stop: 05/24/18 00:00 Last Admin: 03/29/18 12:41 Dose: 3 units Insulin Detemir (Levemir Insulin) 10 units SUBQ HS [facility] Stop: 05/24/18 20:59 Last Admin: 03/28/18 20:47 Dose: Not Given Levetiracetam (Keppra) 500 mg GT BID [facility] Stop: 05/24/18 08:59 Last Admin: 03/29/18 08:46 Dose: 500 mg Lorazepam (Ativan) 1 mg IVP Q4HR PRN; Protocol PRN Reason: Agitation Stop: 05/26/18 14:37 Last Admin: 03/29/18 06:50 Dose: 1 mg Magnesium Hydroxide (Milk Of Magnesia) 30 ml GT Q6H PRN PRN Reason: Constipation Stop: 05/23/18 22:40 Miscellaneous (Vancomycin Iv Per Pharmacy) 1 ea MC PRN [facility] Stop: 05/24/18 14:44 Miscellaneous (Zosyn Iv Per Pharmacy) 1 ea MC PRN PRN PRN Reason: PROTOCOL Stop: 05/27/18 13:39 Morphine Sulfate (Morphine) 4 mg IVP Q6H PRN PRN Reason: Pain (Severe) Stop: 05/26/18 17:10 Ondansetron HCl (Zofran) 4 mg IV Q4H PRN PRN Reason: Nausea / Vomiting Stop: 05/23/18 22:44 Polyethylene Glycol (Miralax) 17 gm GT Q12H [facility] Stop: 05/23/18 22:44 Last Admin: 03/29/18 10:20 Dose: Not Given Potassium Chloride (Potassium Chloride Elixir) 40 meq GT BID [facility] Stop: 05/24/18 08:59 Last Admin: 03/29/18 08:46 Dose: 40 meq Senna (Senna) 8.6 mg GT HS [facility] Stop: 05/28/18 20:59 Simvastatin (Zocor) 10 mg GT HS [facility] Stop: 05/24/18 20:59 Last Admin: 03/28/18 20:27 Dose: 10 mg Sodium Phosphate (Fleet Enema) 135 ml RC PRN PRN PRN Reason: Constipation Stop: 05/23/18 22:40 General: No acute distress HEENT: Atraumatic, PERRLA Neck: Supple, JVD Cardiovascular: Regular rate, Normal S1, Normal S2 Lungs: Clear to auscultation Abdomen: Bowel sounds, Soft - Procedures Procedures: Procedures Procedure Code Date RESPIRATORY VENTILATION, 24-96 CONSECUTIVE HOURS [id number] 03/24/18 Assessment/Plan - Assessment Assessment: 1.UTI. 2.SEPSIS. 3.RESPIRATORY FAILURE. 4.SAH. 5.DM. 6.ANEMIA. - Plan Plan: continue current treatment Nutritional Asmnt/Malnutr-PDOC - Dietary Evaluation Malnutrition Findings (Please click <Entered> for more info): Nutritional Asmnt/Malnutrition Start: 03/25/18 13: 56 Text: Status: Complete Freq: Protocol: Document 03/25/18 14:40 QAMAR (Rec: 03/25/18 14:51 QAMAR [email or web address]) Nutritional Asmnt/Malnutrition Patient General Information Nutritional Screening High Risk Diagnosis urosepsis, fever Pertinent Medical Hx/Surgical Hx HTN, asthma/COPD, PEG/Gtube Subjective Information Pt seen resting in bed, on trach. TF was running at 70ml/ hr at this time. Current Diet Order/ Nutrition Support glucerna 1.2 70ml x 20hr Pertinent Medications vit C, colace, iron, novolog, levemir, miralax, D5-0.45ns w 20meq kcl, senna Pertinent Labs 03/25 K 3.1, Cl 13, Cr 0.5, glucose 223., POC 145-222 03/24 Na 146, cl 112, BUN 28, glucose 161 Nutritional Hx/Data Height 1.47 m Height (Calculated Centimeters) 147.3 Current Weight (lbs) 40.823 kg Weight (Calculated Kilograms) 40.8 Weight (Calculated Grams) 61548.3 [place] Body Weight 96 Body Mass Index (BMI) 18.8 Weight Status Approriate GI Symptoms GI Symptoms None Last BM 03/25 Difficult in: None Usual diet at home diabetisource 70ml x 20hr daily at care facility per chart Skin Integrity/Comment: intact jason 13 Estimated Nutritional Goals BEE in Kcals: Using Current wt Calories/Kcals/Kg 30-35 Kcals Calculated 3030-8247 Protein: Using Current wt Protein g/k.2-1.4 Protein Calculated 49-57 Fluid: ml 1230-1435ml (1ml/kcal) Nutritional Problem 2. Problem Problem increased nutrition needs Etiology increased metabolic demand Signs/Symptoms: dx of urosepsis, fever 1. Problem Problem altered nutrition related labs Etiology possible endocrine dysfunction , electrolytes imbalance Signs/Symptoms: glucose 161-165, POC 145-222, K 3.1 Intervention/Recommendation Comments 1. Continue with current TF regimen. It provides 1680kcal, 84g protein, 1127ml free water, meeting 100% of nutritional needs 2. MD to adjust insulin regimen for optimal glycemic control 3. Monitor TF rate, tolerance, wt, skin integrity and labs 4. F/U as high risk in 2-3 days, 03/27-03/28 Expected Outcomes/Goals Expected Outcomes/Goals 1. Pt to meet at least 75% of nutritional needs via nutrition support with tolerance 2. Wt stability, skin to remain intact, labs to approach WNL.
[2018-03-29] MEDS: D5-0.45NS w/20 mEq KCL 1,000 ML IV SCH (16:09)
[2018-03-29] MEDS: Morphine Sulfate 4 mg/mL 1mL Syr IVP PRN (19:37)
[2018-03-29] MEDS: Chlorhexidine Gluconate 0.12% 15mL Mouthwash MM SCH (19:45)
[2018-03-29] MEDS: Insulin Detemir 100 units/mL 10mL Vial SUBQ SCH (20:51)
--- NOTE | 2018-03-30 00:02 | Infectious Disease Prog Note ---
Infectious Disease Subjective - Review of Systems Service Date: 03/29/18 Subjective: No new change, no fever. on the ventilator, s/p trach. Infectious Disease Objective - Results Result Diagrams: 03/30/18 04:05 03/30/18 04:05 Recent Labs: Laboratory Last Values WBC 13.7 Th/cmm (4.8-10.8) H 03/29/18 04:20 RBC 2.78 Mil/cmm (3.80-5.10) L 03/29/18 04:20 Hgb 9.3 gm/dL (12-16) L 03/29/18 04:20 Hct 26.9 % (41.0-60) L 03/29/18 04:20 MCV 97.0 fl (81-100) 03/29/18 04:20 MCH 33.5 pg (27.0-31.0) H 03/29/18 04:20 MCHC Differential 34.6 pg (28.0-36.0) 03/29/18 04:20 RDW 13.1 % (11.5-20.0) 03/29/18 04:20 Plt Count 211 Th/cmm (150-400) 03/29/18 04:20 MPV 10.1 fl 03/29/18 04:20 Neutrophils % 78.8 % (40.0-80.0) 03/29/18 04:20 Lymphocytes % 11.2 % (20.0-50.0) L 03/29/18 04:20 Monocytes % 6.2 % (2.0-10.0) 03/29/18 04:20 Eosinophils % 3.7 % (0.0-5.0) 03/29/18 04:20 Basophils % 0.1 % (0.0-2.0) 03/29/18 04:20 Neutrophils (Manual) Not Reportable 03/28/18 04:35 PT 10.3 SECONDS (9.5-11.5) 03/24/18 20:10 INR 0.99 (0.5-1.4) 03/24/18 20:10 PTT (Actin FS) 24.1 SECONDS (26.0-38.0) L 03/24/18 20:10 Sodium 139 mEq/L (136-145) 03/29/18 04:20 Potassium 3.9 mEq/L (3.5-5.1) 03/29/18 04:20 Chloride 106 mEq/L (98-107) 03/29/18 04:20 Carbon Dioxide 21.7 mEq/L (21.0-31.0) 03/29/18 04:20 Anion Gap 15.2 (7.0-16.0) 03/29/18 04:20 BUN 14 mg/dL (7-25) 03/29/18 04:20 Creatinine 0.5 mg/dL (0.6-1.2) L 03/29/18 04:20 Est GFR ( Amer) > 60.0 ml/min (>90) 03/29/18 04:20 Est GFR (Non-Af Amer) > 60.0 ml/min 03/29/18 04:20 BUN/Creatinine Ratio 28.0 03/29/18 04:20 Glucose 149 mg/dL (70-105) H 03/29/18 04:20 POC Glucose 156 MG/DL (70 - 105) H 03/29/18 17:40 Hemoglobin A1c % 6.2 % (4.0-6.0) H 03/25/18 04:30 Whole Bld Lactic Acid 1.09 mmol/L (0.60-1.99) 03/24/18 20:10 Calcium 10.2 mg/dL (8.6-10.3) 03/29/18 04:20 Magnesium 2.0 mg/dL (1.9-2.7) 03/26/18 04:35 Total Bilirubin 0.3 mg/dL (0.3-1.0) 03/29/18 04:20 AST 22 U/L (13-39) 03/29/18 04:20 ALT 22 U/L (7-52) 03/29/18 04:20 Alkaline Phosphatase 157 U/L (34-104) H 03/29/18 04:20 Creatine Kinase 87 U/L (30-223) 03/24/18 20:10 Troponin I 0.01 ng/mL (0.01-0.05) 03/24/18 20:10 Total Protein 7.3 gm/dL (6.0-8.3) 03/29/18 04:20 Albumin 3.9 gm/dL (3.7-5.3) 03/29/18 04:20 Globulin 3.4 gm/dL 03/29/18 04:20 Albumin/Globulin Ratio 1.2 (1.0-1.8) 03/29/18 04:20 Serum , Qual NEGATIVE (NEGATIVE) 03/24/18 20:10 Urine Source MIDSTREAM 03/24/18 20:30 Urine Color YELLOW 03/24/18 20:30 Urine Clarity CLEAR (CLEAR) 03/24/18 20:30 Urine pH 7.0 (4.6 - 8.0) 03/24/18 20:30 Ur Specific [place] 1.010 (1.005-1.030) 03/24/18 20:30 Urine Protein TRACE mg/dL (NEGATIVE) 03/24/18 20:30 Urine Glucose (UA) NEGATIVE mg/dL (NEGATIVE) 03/24/18 20:30 Urine Ketones NEGATIVE mg/dL (NEGATIVE) 03/24/18 20:30 Urine Blood NEGATIVE (NEGATIVE) 03/24/18 20:30 Urine Nitrate NEGATIVE (NEGATIVE) 03/24/18 20:30 Urine Bilirubin NEGATIVE (NEGATIVE) 03/24/18 20:30 Urine Urobilinogen 1.0 E.U./dL (0.2 - 1.0) 03/24/18 20:30 Ur Leukocyte Esterase NEGATIVE (NEGATIVE) 03/24/18 20:30 Urine RBC 0-2 /hpf (0-5) 03/24/18 20:30 Urine WBC 2-5 /hpf (0-5) 03/24/18 20:30 Ur Epithelial Cells MODERATE /lpf (FEW) 03/24/18 20:30 Urine Bacteria 1+ /hpf (NONE SEEN) H 03/24/18 20:30 Coarse Granular Casts 0-2 /lpf (NONE SEEN) H 03/24/18 20:30 Vancomycin Trough 24.6 ug/mL (5-10) H 03/29/18 15:00 - Physical Exam Vitals and I&O: Vital Signs Temp 98.6 F 03/29/18 19:00 Pulse 102 03/29/18 23:00 Resp 14 03/29/18 23:00 BP 115/69 03/29/18 23:00 Pulse Ox 100 03/29/18 23:00 Intake & Output 03/29/18 03/29/18 03/30/18 06:59 18:59 06:59 Intake Total 1547 350 Balance 1547 350 Weight (lbs) 43.636 kg 42.184 kg Intake: Intake, IV Amount 550 200 Piperacillin Sodium/ 300 200 Tazobact 4.5 gm In Sodium Chloride 0.9% 100 ml @ 100 mls/hr IV Q6HR [facility] Rx #:[id number] Vancomycin HCl 1 gm In 250 Sodium Chloride 0.9% 250 ml @ 165 mls/hr IV Q12H [facility] Rx#:[id number] Tube Feeding 497 Other 500 150 Other: # Voids 3 2 # Bowel Movements 0 3 Stool Characteristics Liquid Brown Weight Source Bedscale Bedscale Active Medications: Current Medications Acetaminophen (Tylenol) 650 mg GT Q6HR PRN PRN Reason: Pain or Fever >101 Stop: 05/23/18 22:40 Last Admin: 03/29/18 11:08 Dose: 650 mg Acetaminophen/Hydrocodone Bitart ([place] 5mg/325mg) 1 tab GT Q6HR [facility] Stop: 05/24/18 00:00 Last Admin: 03/29/18 23:44 Dose: 1 tab Albuterol/Ipratropium (Duoneb Neb) 3 ml HHN Q6HRT [facility] Stop: 05/24/18 00:59 Last Admin: 03/29/18 19:18 Dose: 3 ml Amantadine HCl (Symmetrel) 100 mg GT Q12HR [facility] Stop: 05/24/18 00:44 Last Admin: 03/29/18 20:47 Dose: 100 mg Amlodipine Besylate (Norvasc) 10 mg GT DAILY [facility] Stop: 05/24/18 08:59 Last Admin: 03/29/18 09:36 Dose: 10 mg Ascorbic Acid (Vitamin C) 500 mg GT BID [facility] Stop: 05/24/18 08:59 Last Admin: 03/29/18 16:08 Dose: 500 mg Chlorhexidine Gluconate (Peridex) 15 ml MM 0800,1999 [facility] Stop: 05/28/18 19:59 Last Admin: 03/29/18 19:45 Dose: 15 ml Diltiazem HCl (Cardizem) 30 mg GT BID [facility] Stop: 05/24/18 08:59 Last Admin: 03/29/18 16:08 Dose: 30 mg Diphenhydramine HCl (Benadryl) 12.5 mg GT Q6H PRN PRN Reason: Itching Stop: 05/23/18 22:40 Last Admin: 03/26/18 21:12 Dose: 12.5 mg Docusate Sodium (Colace) 100 mg PO BID [facility] Stop: 05/24/18 08:59 Last Admin: 03/29/18 16:04 Dose: Not Given Famotidine (Pepcid) 20 mg GT DAILY [facility] Stop: 05/24/18 08:59 Last Admin: 03/29/18 08:46 Dose: 20 mg Ferrous Sulfate (Iron) 330 mg GT QDAC [facility] Stop: 05/24/18 07:29 Last Admin: 03/29/18 06:29 Dose: 330 mg Heparin Sodium (Porcine) (Heparin) 5,000 units SUBQ Q12HR [facility] Stop: 05/24/18 00:44 Last Admin: 03/29/18 20:47 Dose: 5,000 units Potassium Chloride/Dextrose/Sod Cl (D5-0.45ns W/20 Meq Kcl) 1,000 mls @ 40 mls/ hr IV .Q24H [facility] Stop: 05/27/18 13:44 Last Admin: 03/29/18 16:09 Dose: Not Given Piperacillin Sod/Tazobactam (Sod 4.5 gm/ Sodium Chloride) 100 mls @ 100 mls/hr IV Q6HR [facility] Stop: 05/27/18 17:59 Last Admin: 03/29/18 23:44 Dose: 100 mls/hr Vancomycin HCl 0.75 gm/ Sodium (Chloride) 250 mls @ 165 mls/hr IV Q12HR [facility] Stop: 05/28/18 20:59 Last Admin: 03/29/18 20:47 Dose: 165 mls/hr Insulin Aspart (Novolog Insulin Sliding Scale) 0 units SUBQ Q6HR [facility]; Protocol Stop: 05/24/18 00:00 Last Admin: 03/29/18 23:54 Dose: Not Given Insulin Detemir (Levemir Insulin) 10 units SUBQ HS [facility] Stop: 05/24/18 20:59 Last Admin: 03/29/18 20:51 Dose: 10 units Levetiracetam (Keppra) 500 mg GT BID [facility] Stop: 05/24/18 08:59 Last Admin: 03/29/18 16:08 Dose: 500 mg Lorazepam (Ativan) 1 mg IVP Q4HR PRN; Protocol PRN Reason: Agitation Stop: 05/26/18 14:37 Last Admin: 03/29/18 18:18 Dose: 1 mg Magnesium Hydroxide (Milk Of Magnesia) 30 ml GT Q6H PRN PRN Reason: Constipation Stop: 05/23/18 22:40 Miscellaneous (Vancomycin Iv Per Pharmacy) 1 ea PRN [facility] Stop: 05/24/18 14:44 Miscellaneous (Zosyn Iv Per Pharmacy) 1 ea PRN PRN PRN Reason: PROTOCOL Stop: 05/27/18 13:39 Morphine Sulfate (Morphine) 4 mg IVP Q6H PRN PRN Reason: Pain (Severe) Stop: 05/26/18 17:10 Last Admin: 03/29/18 19:37 Dose: 4 mg Ondansetron HCl (Zofran) 4 mg IV Q4H PRN PRN Reason: Nausea / Vomiting Stop: 05/23/18 22:44 Polyethylene Glycol (Miralax) 17 gm GT Q12H [facility] Stop: 05/23/18 22:44 Last Admin: 03/29/18 22:18 Dose: Not Given Potassium Chloride (Potassium Chloride Elixir) 40 meq GT BID [facility] Stop: 05/24/18 08:59 Last Admin: 03/29/18 16:08 Dose: 40 meq Senna (Senna) 8.6 mg GT HS [facility] Stop: 05/28/18 20:59 Last Admin: 03/29/18 20:56 Dose: Not Given Simvastatin (Zocor) 10 mg GT HS [facility] Stop: 05/24/18 20:59 Last Admin: 03/29/18 20:47 Dose: 10 mg Sodium Phosphate (Fleet Enema) 135 ml RC PRN PRN PRN Reason: Constipation Stop: 05/23/18 22:40 General: no acute distress HEENT: atraumatic, normocephalic, PERRLA, EOMI Neck: supple, no thyromegaly Cardiovascular: S1S2, regular Lungs: clear to percussion, rhonchi Abdomen: soft, no tender, no distended Extremities: no cyanosis, no clubbing, no edema Neurological: awake - Procedures Procedures: Procedures Procedure Code Date RESPIRATORY VENTILATION, 24-96 CONSECUTIVE HOURS [id number] 03/24/18 Infectious Disease Assmt/Plan - Assessment Assessment: 1. SEPSIS. 2. UTI. 3. RESPIRATORY FAILURE. 4. PSEUDOMONAS PNEUMONIA. 5. DM2. 6. ANEMIA. 7. SAH. - Plan Plan: CONTINUE VANCOMYCIN IV AND ZOSYN. Nutritional Asmnt/Malnutr-PDOC - Dietary Evaluation Malnutrition Findings (Please click <Entered> for more info): Nutritional Asmnt/Malnutrition Start: 03/25/18 13: 56 Text: Status: Complete Freq: Protocol: Document 03/25/18 14:40 QAMAR (Rec: 03/25/18 14:51 [email or web address]) Nutritional Asmnt/Malnutrition Patient General Information Nutritional Screening High Risk Diagnosis urosepsis, fever Pertinent Medical Hx/Surgical Hx HTN, asthma/COPD, PEG/Gtube Subjective Information Pt seen resting in bed, on trach. TF was running at 70ml/ hr at this time. Current Diet Order/ Nutrition Support glucerna 1.2 70ml x 20hr Pertinent Medications vit C, colace, iron, novolog, levemir, miralax, D5-0.45ns w 20meq kcl, senna Pertinent Labs 03/25 K 3.1, Cl 13, Cr 0.5, glucose 223., POC 145-222 03/24 Na 146, cl 112, BUN 28, glucose 161 Nutritional Hx/Data Height 1.47 m Height (Calculated Centimeters) 147.3 Current Weight (lbs) 40.823 kg Weight (Calculated Kilograms) 40.8 Weight (Calculated Grams) 15213.3 [place] Body Weight 96 Body Mass Index (BMI) 18.8 Weight Status Approriate GI Symptoms GI Symptoms None Last BM 03/25 Difficult in: None Usual diet at home diabetisource 70ml x 20hr daily at care facility per chart Skin Integrity/Comment: intact jason 13 Estimated Nutritional Goals BEE in Kcals: Using Current wt Calories/Kcals/Kg 30-35 Kcals Calculated 8587-4634 Protein: Using Current wt Protein g/k.2-1.4 Protein Calculated 49-57 Fluid: ml 1230-1435ml (1ml/kcal) Nutritional Problem 2. Problem Problem increased nutrition needs Etiology increased metabolic demand Signs/Symptoms: dx of urosepsis, fever 1. Problem Problem altered nutrition related labs Etiology possible endocrine dysfunction , electrolytes imbalance Signs/Symptoms: glucose 161-165, POC 145-222, K 3.1 Intervention/Recommendation Comments 1. Continue with current TF regimen. It provides 1680kcal, 84g protein, 1127ml free water, meeting 100% of nutritional needs 2. MD to adjust insulin regimen for optimal glycemic control 3. Monitor TF rate, tolerance, wt, skin integrity and labs 4. F/U as high risk in 2-3 days, 03/27-03/28 Expected Outcomes/Goals Expected Outcomes/Goals 1. Pt to meet at least 75% of nutritional needs via nutrition support with tolerance 2. Wt stability, skin to remain intact, labs to approach WNL.
[2018-03-30] MEDS: Albuterol/Ipratropium Neb 3 ML AERS HHN SCH ×4 (00:03→19:11)
[2018-03-30 04:23] LABS: % BASOPHILS 0.1 % (0.0-2.0); % EOSINOPHILS 4.1 % (0.0-5.0); % LYMPHOCYTES 14.3 % (20.0-50.0); % MONOCYTES 8.1 % (2.0-10.0); % NEUTROPHILS 73.4 % (40.0-80.0); EOSINOPHILE ABSOLUTE 0.4 Th/cmm (0.1-0.4); HEMOGLOBIN 9.4 gm/dL (12-16); LYMPHOCYTE ABSOLUTE 1.3 Th/cmm (1.5-3.0); MEAN CELL VOLUME 96.7 fl (81-100); MEAN CORPUSCULAR HEMOGLOBIN 33.6 pg (27.0-31.0); MEAN CORPUSCULAR HGB CONC 34.8 pg (28.0-36.0); MEAN PLATELET VOLUME 9.8 fl; MONOCYTE ABSOLUTE 0.7 Th/cmm (0.3-1.0); NEUTROPHILE ABSOLUTE 6.7 Th/cmm (1.8-8.0); PLATELET COUNT 185 Th/cmm (150-400); RED CELL DISTRIBUTION WIDTH 13.4 % (11.5-20.0)
[2018-03-30 04:25] LABS: WHITE BLOOD COUNT 9.1 Th/cmm (4.8-10.8)
[2018-03-30] MEDS: INSULIN ASPART SLIDING SCALE 100 UNITS/ML UNIT SUBQ SCH ×4 (05:52→23:27)
[2018-03-30] MEDS: Hydrocodone/APAP 5mg/325mg Tab GT SCH ×4 (05:52→23:30)
[2018-03-30 06:10] LABS: ANION GAP 12.8 (7.0-16.0); BUN - UREA NITROGEN 14 mg/dL (7-25); CALCIUM SERUM 10.1 mg/dL (8.6-10.3); CHLORIDE 110 mEq/L (98-107); CREATININE - SERUM 0.5 mg/dL (0.6-1.2); GFR AFRICAN-AMERICAN > 60.0 ml/min (>90); GFR NON AFRICAN-AMERICAN > 60.0 ml/min; GLUCOSE 105 mg/dL (70-105); POTASSIUM SERUM 3.8 mEq/L (3.5-5.1); SODIUM SERUM 143 mEq/L (136-145)
[2018-03-30] MEDS: Levetiracetam 500 mg/5mL 5mL UDSyr *for ORAL USE ONLY GT SCH ×2 (08:18→16:04)
[2018-03-30] MEDS: Diltiazem 30 mg Tab GT SCH ×2 (08:18→16:03)
[2018-03-30] MEDS: Potassium Chloride Elixir 20 mEq /15 mL UDC GT SCH ×2 (08:18→16:03)
[2018-03-30] MEDS: Multivitamin w/ Minerals Tab GT SCH (08:19)
[2018-03-30] MEDS: Morphine Sulfate 4 mg/mL 1mL Syr IVP PRN ×3 (08:19→23:40)
[2018-03-30] MEDS: Ferrous Sulfate 300 MG/5 ML UDC GT SCH (08:20)
[2018-03-30] MEDS: D5-0.45NS w/20 mEq KCL 1,000 ML IV SCH (08:27)
[2018-03-30] MEDS: Chlorhexidine Gluconate 0.12% 15mL Mouthwash MM SCH ×2 (08:37→20:28)
[2018-03-30] MEDS: POLYETHYLENE GLYCOL 3350 17 GM PACK GT SCH ×2 (09:50→22:56)
--- NOTE | 2018-03-30 20:10 | Internal Medicine Prog Note ---
Internal Medicine Subjective - Subjective Service Date: 03/30/18 Patient seen and examined:: with staff (no fever today) Patient is:: awake, non-verbal, in bed, confused Per staff patient has:: no adverse event Internal Medicine Objective - Results Result Diagrams: 03/30/18 04:05 03/30/18 04:05 Recent Labs: Laboratory Last Values WBC 9.1 Th/cmm (4.8-10.8) D 03/30/18 04:05 RBC 2.80 Mil/cmm (3.80-5.10) L 03/30/18 04:05 Hgb 9.4 gm/dL (12-16) L 03/30/18 04:05 Hct 27.0 % (41.0-60) L 03/30/18 04:05 MCV 96.7 fl (81-100) 03/30/18 04:05 MCH 33.6 pg (27.0-31.0) H 03/30/18 04:05 MCHC Differential 34.8 pg (28.0-36.0) 03/30/18 04:05 RDW 13.4 % (11.5-20.0) 03/30/18 04:05 Plt Count 185 Th/cmm (150-400) 03/30/18 04:05 MPV 9.8 fl 03/30/18 04:05 Neutrophils % 73.4 % (40.0-80.0) 03/30/18 04:05 Lymphocytes % 14.3 % (20.0-50.0) L 03/30/18 04:05 Monocytes % 8.1 % (2.0-10.0) 03/30/18 04:05 Eosinophils % 4.1 % (0.0-5.0) 03/30/18 04:05 Basophils % 0.1 % (0.0-2.0) 03/30/18 04:05 Neutrophils (Manual) Not Reportable 03/28/18 04:35 PT 10.3 SECONDS (9.5-11.5) 03/24/18 20:10 INR 0.99 (0.5-1.4) 03/24/18 20:10 PTT (Actin FS) 24.1 SECONDS (26.0-38.0) L 03/24/18 20:10 Sodium 143 mEq/L (136-145) 03/30/18 04:05 Potassium 3.8 mEq/L (3.5-5.1) 03/30/18 04:05 Chloride 110 mEq/L (98-107) H 03/30/18 04:05 Carbon Dioxide 24.0 mEq/L (21.0-31.0) 03/30/18 04:05 Anion Gap 12.8 (7.0-16.0) 03/30/18 04:05 BUN 14 mg/dL (7-25) 03/30/18 04:05 Creatinine 0.5 mg/dL (0.6-1.2) L 03/30/18 04:05 Est GFR ( Amer) > 60.0 ml/min (>90) 03/30/18 04:05 Est GFR (Non-Af Amer) > 60.0 ml/min 03/30/18 04:05 BUN/Creatinine Ratio 28.0 03/30/18 04:05 Glucose 105 mg/dL (70-105) 03/30/18 04:05 POC Glucose 169 MG/DL (70 - 105) H 03/30/18 17:31 Hemoglobin A1c % 6.2 % (4.0-6.0) H 03/25/18 04:30 Whole Bld Lactic Acid 1.09 mmol/L (0.60-1.99) 03/24/18 20:10 Calcium 10.1 mg/dL (8.6-10.3) 03/30/18 04:05 Magnesium 2.0 mg/dL (1.9-2.7) 03/26/18 04:35 Total Bilirubin 0.3 mg/dL (0.3-1.0) 03/29/18 04:20 AST 22 U/L (13-39) 03/29/18 04:20 ALT 22 U/L (7-52) 03/29/18 04:20 Alkaline Phosphatase 157 U/L (34-104) H 03/29/18 04:20 Creatine Kinase 87 U/L (30-223) 03/24/18 20:10 Troponin I 0.01 ng/mL (0.01-0.05) 03/24/18 20:10 Total Protein 7.3 gm/dL (6.0-8.3) 03/29/18 04:20 Albumin 3.9 gm/dL (3.7-5.3) 03/29/18 04:20 Globulin 3.4 gm/dL 03/29/18 04:20 Albumin/Globulin Ratio 1.2 (1.0-1.8) 03/29/18 04:20 Serum , Qual NEGATIVE (NEGATIVE) 03/24/18 20:10 Urine Source MIDSTREAM 03/24/18 20:30 Urine Color YELLOW 03/24/18 20:30 Urine Clarity CLEAR (CLEAR) 03/24/18 20:30 Urine pH 7.0 (4.6 - 8.0) 03/24/18 20:30 Ur Specific [place] 1.010 (1.005-1.030) 03/24/18 20:30 Urine Protein TRACE mg/dL (NEGATIVE) 03/24/18 20:30 Urine Glucose (UA) NEGATIVE mg/dL (NEGATIVE) 03/24/18 20:30 Urine Ketones NEGATIVE mg/dL (NEGATIVE) 03/24/18 20:30 Urine Blood NEGATIVE (NEGATIVE) 03/24/18 20:30 Urine Nitrate NEGATIVE (NEGATIVE) 03/24/18 20:30 Urine Bilirubin NEGATIVE (NEGATIVE) 03/24/18 20:30 Urine Urobilinogen 1.0 E.U./dL (0.2 - 1.0) 03/24/18 20:30 Ur Leukocyte Esterase NEGATIVE (NEGATIVE) 03/24/18 20:30 Urine RBC 0-2 /hpf (0-5) 03/24/18 20:30 Urine WBC 2-5 /hpf (0-5) 03/24/18 20:30 Ur Epithelial Cells MODERATE /lpf (FEW) 03/24/18 20:30 Urine Bacteria 1+ /hpf (NONE SEEN) H 03/24/18 20:30 Coarse Granular Casts 0-2 /lpf (NONE SEEN) H 03/24/18 20:30 Vancomycin Trough 24.6 ug/mL (5-10) H 03/29/18 15:00 - Physical Exam Vitals and I&O: Vital Signs Temp 98.6 F 03/30/18 16:00 Pulse 92 03/30/18 19:11 Resp 14 03/30/18 19:00 BP 112/58 03/30/18 19:00 Pulse Ox 100 03/30/18 19:31 Intake & Output 03/30/18 03/30/18 03/31/18 06:59 18:59 06:59 Intake Total 1290 1130 Balance 1290 1130 Weight (lbs) 42.184 kg 42.184 kg Intake: Intake, IV Amount 350 450 Piperacillin Sodium/ 100 200 Tazobact 4.5 gm In Sodium Chloride 0.9% 100 ml @ 100 mls/hr IV Q6HR [facility] Rx #:[id number] Vancomycin HCl 0.75 gm In 250 250 Sodium Chloride 0.9% 250 ml @ 165 mls/hr IV Q12HR [facility] Rx#:[id number] Tube Feeding 840 560 Other 100 120 Other: # Voids 4 2 # Bowel Movements 2 2 Stool Characteristics Liquid Liquid Brown Brown Weight Source Bedscale Bedscale Active Medications: Current Medications Acetaminophen (Tylenol) 650 mg GT Q6HR PRN PRN Reason: Pain or Fever >101 Stop: 05/23/18 22:40 Last Admin: 03/29/18 11:08 Dose: 650 mg Acetaminophen/Hydrocodone Bitart ([place] 5mg/325mg) 1 tab GT Q6HR [facility] Stop: 05/24/18 00:00 Last Admin: 03/30/18 17:32 Dose: 1 tab Albuterol/Ipratropium (Duoneb Neb) 3 ml HHN Q6HRT [facility] Stop: 05/24/18 00:59 Last Admin: 03/30/18 19:11 Dose: 3 ml Amantadine HCl (Symmetrel) 100 mg GT Q12HR [facility] Stop: 05/24/18 00:44 Last Admin: 03/30/18 08:19 Dose: 100 mg Amlodipine Besylate (Norvasc) 10 mg GT DAILY [facility] Stop: 05/24/18 08:59 Last Admin: 03/30/18 08:18 Dose: 10 mg Ascorbic Acid (Vitamin C) 500 mg GT BID [facility] Stop: 05/24/18 08:59 Last Admin: 03/30/18 16:04 Dose: 500 mg Chlorhexidine Gluconate (Peridex) 15 ml MM 0800,1999 [facility] Stop: 05/28/18 19:59 Last Admin: 03/30/18 08:37 Dose: 15 ml Diltiazem HCl (Cardizem) 30 mg GT BID [facility] Stop: 05/24/18 08:59 Last Admin: 03/30/18 16:03 Dose: 30 mg Diphenhydramine HCl (Benadryl) 12.5 mg GT Q6H PRN PRN Reason: Itching Stop: 05/23/18 22:40 Last Admin: 03/26/18 21:12 Dose: 12.5 mg Docusate Sodium (Colace) 100 mg PO BID [facility] Stop: 05/24/18 08:59 Last Admin: 03/30/18 16:04 Dose: 100 mg Famotidine (Pepcid) 20 mg GT DAILY [facility] Stop: 05/24/18 08:59 Last Admin: 03/30/18 08:18 Dose: 20 mg Ferrous Sulfate (Iron) 330 mg GT QDAC [facility] Stop: 05/24/18 07:29 Last Admin: 03/30/18 08:20 Dose: 330 mg Heparin Sodium (Porcine) (Heparin) 5,000 units SUBQ Q12HR [facility] Stop: 05/24/18 00:44 Last Admin: 03/30/18 08:20 Dose: 5,000 units Potassium Chloride/Dextrose/Sod Cl (D5-0.45ns W/20 Meq Kcl) 1,000 mls @ 40 mls/ hr IV .Q24H [facility] Stop: 05/27/18 13:44 Last Admin: 03/30/18 08:27 Dose: 40 mls/hr Piperacillin Sod/Tazobactam (Sod 4.5 gm/ Sodium Chloride) 100 mls @ 100 mls/hr IV Q6HR [facility] Stop: 05/27/18 17:59 Last Admin: 03/30/18 17:32 Dose: 100 mls/hr Vancomycin HCl 0.75 gm/ Sodium (Chloride) 250 mls @ 165 mls/hr IV Q12HR [facility] Stop: 05/28/18 20:59 Last Infusion: 03/30/18 11:00 Dose: Infused Insulin Aspart (Novolog Insulin Sliding Scale) 0 units SUBQ Q6HR [facility]; Protocol Stop: 05/24/18 00:00 Last Admin: 03/30/18 17:32 Dose: 3 units Insulin Detemir (Levemir Insulin) 10 units SUBQ HS [facility] Stop: 05/24/18 20:59 Last Admin: 03/29/18 20:51 Dose: 10 units Levetiracetam (Keppra) 500 mg GT BID [facility] Stop: 05/24/18 08:59 Last Admin: 03/30/18 16:04 Dose: 500 mg Lorazepam (Ativan) 1 mg IVP Q4HR PRN; Protocol PRN Reason: Agitation Stop: 05/26/18 14:37 Last Admin: 03/29/18 18:18 Dose: 1 mg Magnesium Hydroxide (Milk Of Magnesia) 30 ml GT Q6H PRN PRN Reason: Constipation Stop: 05/23/18 22:40 Miscellaneous (Vancomycin Iv Per Pharmacy) 1 ea MC PRN [facility] Stop: 05/24/18 14:44 Miscellaneous (Zosyn Iv Per Pharmacy) 1 ea PRN PRN PRN Reason: PROTOCOL Stop: 05/27/18 13:39 Morphine Sulfate (Morphine) 4 mg IVP Q6H PRN PRN Reason: Pain (Severe) Stop: 05/26/18 17:10 Last Admin: 03/30/18 17:36 Dose: 4 mg Ondansetron HCl (Zofran) 4 mg IV Q4H PRN PRN Reason: Nausea / Vomiting Stop: 05/23/18 22:44 Polyethylene Glycol (Miralax) 17 gm GT Q12H [facility] Stop: 05/23/18 22:44 Last Admin: 03/30/18 09:50 Dose: Not Given Potassium Chloride (Potassium Chloride Elixir) 40 meq GT BID [facility] Stop: 05/24/18 08:59 Last Admin: 03/30/18 16:03 Dose: 40 meq Senna (Senna) 8.6 mg GT HS [facility] Stop: 05/28/18 20:59 Last Admin: 03/29/18 20:56 Dose: Not Given Simvastatin (Zocor) 10 mg GT HS [facility] Stop: 05/24/18 20:59 Last Admin: 03/29/18 20:47 Dose: 10 mg Sodium Phosphate (Fleet Enema) 135 ml RC PRN PRN PRN Reason: Constipation Stop: 05/23/18 22:40 General: demented HEENT: NC/AT, PERRLA, EOMI, anicteric sclerae, throat clear Neck: Supple, No JVD, No thyromegaly, +2 carotid pulse wo bruit, No LAD Cardiovascular: Normal S1, Normal S2, without murmur Abdomen: soft, non-tender, non-distended Extremities: clear Neurological: no change - Procedures Procedures: Procedures Procedure Code Date RESPIRATORY VENTILATION, GREATER THAN 96 CONSECUTIVE HOURS [id number] 03/24/18 Internal Medicine Assmt/Plan - Assessment Assessment: 1.UTI. 2.SEPSIS. 3.RESPIRATORY FAILURE. 4.SAH. 5.DM. 6.ANEMIA. - Plan Plan: CONTINUE ON CURRENT MEDICATION AND DIET. Nutritional Asmnt/Malnutr-PDOC - Dietary Evaluation Malnutrition Findings (Please click <Entered> for more info): Nutritional Asmnt/Malnutrition Start: 03/25/18 13: 56 Text: Status: Complete Freq: Protocol: Document 03/25/18 14:40 LCHENG (Rec: 03/25/18 14:51 [email or web address] [email or web address]) Nutritional Asmnt/Malnutrition Patient General Information Nutritional Screening High Risk Diagnosis urosepsis, fever Pertinent Medical Hx/Surgical Hx HTN, asthma/COPD, PEG/Gtube Subjective Information Pt seen resting in bed, on trach. TF was running at 70ml/ hr at this time. Current Diet Order/ Nutrition Support glucerna 1.2 70ml x 20hr Pertinent Medications vit C, colace, iron, novolog, levemir, miralax, D5-0.45ns w 20meq kcl, senna Pertinent Labs 03/25 K 3.1, Cl 13, Cr 0.5, glucose 223., POC 145-222 03/24 Na 146, cl 112, BUN 28, glucose 161 Nutritional Hx/Data Height 1.47 m Height (Calculated Centimeters) 147.3 Current Weight (lbs) 40.823 kg Weight (Calculated Kilograms) 40.8 Weight (Calculated Grams) 10447.3 [place] Body Weight 96 Body Mass Index (BMI) 18.8 Weight Status Approriate GI Symptoms GI Symptoms None Last BM 03/25 Difficult in: None Usual diet at home diabetisource 70ml x 20hr daily at care facility per chart Skin Integrity/Comment: intact jason 13 Estimated Nutritional Goals BEE in Kcals: Using Current wt Calories/Kcals/Kg 30-35 Kcals Calculated 6983-8047 Protein: Using Current wt Protein g/k.2-1.4 Protein Calculated 49-57 Fluid: ml 1230-1435ml (1ml/kcal) Nutritional Problem 2. Problem Problem increased nutrition needs Etiology increased metabolic demand Signs/Symptoms: dx of urosepsis, fever 1. Problem Problem altered nutrition related labs Etiology possible endocrine dysfunction , electrolytes imbalance Signs/Symptoms: glucose 161-165, POC 145-222, K 3.1 Intervention/Recommendation Comments 1. Continue with current TF regimen. It provides 1680kcal, 84g protein, 1127ml free water, meeting 100% of nutritional needs 2. MD to adjust insulin regimen for optimal glycemic control 3. Monitor TF rate, tolerance, wt, skin integrity and labs 4. F/U as high risk in 2-3 days, 03/27-03/28 Expected Outcomes/Goals Expected Outcomes/Goals 1. Pt to meet at least 75% of nutritional needs via nutrition support with tolerance 2. Wt stability, skin to remain intact, labs to approach WNL.
[2018-03-30] MEDS: Insulin Detemir 100 units/mL 10mL Vial SUBQ SCH (20:31)
[2018-03-31] MEDS: Albuterol/Ipratropium Neb 3 ML AERS HHN SCH ×4 (00:59→19:27)
[2018-03-31] MEDS: Hydrocodone/APAP 5mg/325mg Tab GT SCH ×3 (05:06→17:59)
[2018-03-31] MEDS: INSULIN ASPART SLIDING SCALE 100 UNITS/ML UNIT SUBQ SCH ×3 (05:46→18:07)
[2018-03-31] MEDS: Ferrous Sulfate 300 MG/5 ML UDC GT SCH (06:32)
[2018-03-31] MEDS: Chlorhexidine Gluconate 0.12% 15mL Mouthwash MM SCH ×2 (08:00→20:42)
[2018-03-31 08:06] LABS: % BASOPHILS 0.3 % (0.0-2.0); % LYMPHOCYTES 14.5 % (20.0-50.0); % NEUTROPHILS 68.2 % (40.0-80.0); EOSINOPHILE ABSOLUTE 0.4 Th/cmm (0.1-0.4); HEMATOCRIT 27.3 % (41.0-60); HEMOGLOBIN 9.4 gm/dL (12-16); LYMPHOCYTE ABSOLUTE 1.2 Th/cmm (1.5-3.0); MEAN CELL VOLUME 96.7 fl (81-100); MEAN CORPUSCULAR HEMOGLOBIN 33.2 pg (27.0-31.0); MEAN CORPUSCULAR HGB CONC 34.4 pg (28.0-36.0); MEAN PLATELET VOLUME 9.8 fl; NEUTROPHILE ABSOLUTE 5.9 Th/cmm (1.8-8.0); PLATELET COUNT 217 Th/cmm (150-400); RED BLOOD COUNT 2.82 Mil/cmm (3.80-5.10); RED CELL DISTRIBUTION WIDTH 13.3 % (11.5-20.0); WHITE BLOOD COUNT 8.5 Th/cmm (4.8-10.8)
[2018-03-31] MEDS: Diltiazem 30 mg Tab GT SCH ×2 (09:05→17:17)
[2018-03-31] MEDS: Multivitamin w/ Minerals Tab GT SCH (09:06)
[2018-03-31] MEDS: Potassium Chloride Elixir 20 mEq /15 mL UDC GT SCH ×2 (09:07→17:00)
[2018-03-31] MEDS: Levetiracetam 500 mg/5mL 5mL UDSyr *for ORAL USE ONLY GT SCH ×2 (09:07→17:17)
[2018-03-31] MEDS: Morphine Sulfate 4 mg/mL 1mL Syr IVP PRN ×3 (09:31→20:41)
[2018-03-31] MEDS ORDERED: Probiotic Screen MC PRN (11:34)
[2018-03-31] MEDS: POLYETHYLENE GLYCOL 3350 17 GM PACK GT SCH ×2 (11:51→23:34)
--- NOTE | 2018-03-31 11:55 | Infectious Disease Prog Note ---
Infectious Disease Subjective - Review of Systems Service Date: 03/30/18 Subjective: cc pseudomonas pn hpi0 sputum pa r to merem abx adjusted ros no efvr o/e vss chaest vesicular ytrach sis2 absd soft] ext atrophy muscle Infectious Disease Objective - Results Result Diagrams: 03/31/18 08:00 03/30/18 04:05 Recent Labs: Laboratory Last Values WBC 8.5 Th/cmm (4.8-10.8) 03/31/18 08:00 RBC 2.82 Mil/cmm (3.80-5.10) L 03/31/18 08:00 Hgb 9.4 gm/dL (12-16) L 03/31/18 08:00 Hct 27.3 % (41.0-60) L 03/31/18 08:00 MCV 96.7 fl (81-100) 03/31/18 08:00 MCH 33.2 pg (27.0-31.0) H 03/31/18 08:00 MCHC Differential 34.4 pg (28.0-36.0) 03/31/18 08:00 RDW 13.3 % (11.5-20.0) 03/31/18 08:00 Plt Count 217 Th/cmm (150-400) 03/31/18 08:00 MPV 9.8 fl 03/31/18 08:00 Neutrophils % 68.2 % (40.0-80.0) 03/31/18 08:00 Lymphocytes % 14.5 % (20.0-50.0) L 03/31/18 08:00 Monocytes % 12.0 % (2.0-10.0) H 03/31/18 08:00 Eosinophils % 5.0 % (0.0-5.0) 03/31/18 08:00 Basophils % 0.3 % (0.0-2.0) 03/31/18 08:00 Neutrophils (Manual) Not Reportable 03/28/18 04:35 PT 10.3 SECONDS (9.5-11.5) 03/24/18 20:10 INR 0.99 (0.5-1.4) 03/24/18 20:10 PTT (Actin FS) 24.1 SECONDS (26.0-38.0) L 03/24/18 20:10 Sodium 143 mEq/L (136-145) 03/30/18 04:05 Potassium 3.8 mEq/L (3.5-5.1) 03/30/18 04:05 Chloride 110 mEq/L (98-107) H 03/30/18 04:05 Carbon Dioxide 24.0 mEq/L (21.0-31.0) 03/30/18 04:05 Anion Gap 12.8 (7.0-16.0) 03/30/18 04:05 BUN 14 mg/dL (7-25) 03/30/18 04:05 Creatinine 0.5 mg/dL (0.6-1.2) L 03/30/18 04:05 Est GFR ( Amer) > 60.0 ml/min (>90) 03/30/18 04:05 Est GFR (Non-Af Amer) > 60.0 ml/min 03/30/18 04:05 BUN/Creatinine Ratio 28.0 03/30/18 04:05 Glucose 105 mg/dL (70-105) 03/30/18 04:05 POC Glucose 169 MG/DL (70 - 105) H 03/30/18 17:31 Hemoglobin A1c % 6.2 % (4.0-6.0) H 03/25/18 04:30 Whole Bld Lactic Acid 1.09 mmol/L (0.60-1.99) 03/24/18 20:10 Calcium 10.1 mg/dL (8.6-10.3) 03/30/18 04:05 Magnesium 2.0 mg/dL (1.9-2.7) 03/26/18 04:35 Total Bilirubin 0.3 mg/dL (0.3-1.0) 03/29/18 04:20 AST 22 U/L (13-39) 03/29/18 04:20 ALT 22 U/L (7-52) 03/29/18 04:20 Alkaline Phosphatase 157 U/L (34-104) H 03/29/18 04:20 Creatine Kinase 87 U/L (30-223) 03/24/18 20:10 Troponin I 0.01 ng/mL (0.01-0.05) 03/24/18 20:10 Total Protein 7.3 gm/dL (6.0-8.3) 03/29/18 04:20 Albumin 3.9 gm/dL (3.7-5.3) 03/29/18 04:20 Globulin 3.4 gm/dL 03/29/18 04:20 Albumin/Globulin Ratio 1.2 (1.0-1.8) 03/29/18 04:20 Serum , Qual NEGATIVE (NEGATIVE) 03/24/18 20:10 Urine Source MIDSTREAM 03/24/18 20:30 Urine Color YELLOW 03/24/18 20:30 Urine Clarity CLEAR (CLEAR) 03/24/18 20:30 Urine pH 7.0 (4.6 - 8.0) 03/24/18 20:30 Ur Specific [place] 1.010 (1.005-1.030) 03/24/18 20:30 Urine Protein TRACE mg/dL (NEGATIVE) 03/24/18 20:30 Urine Glucose (UA) NEGATIVE mg/dL (NEGATIVE) 03/24/18 20:30 Urine Ketones NEGATIVE mg/dL (NEGATIVE) 03/24/18 20:30 Urine Blood NEGATIVE (NEGATIVE) 03/24/18 20:30 Urine Nitrate NEGATIVE (NEGATIVE) 03/24/18 20:30 Urine Bilirubin NEGATIVE (NEGATIVE) 03/24/18 20:30 Urine Urobilinogen 1.0 E.U./dL (0.2 - 1.0) 03/24/18 20:30 Ur Leukocyte Esterase NEGATIVE (NEGATIVE) 03/24/18 20:30 Urine RBC 0-2 /hpf (0-5) 03/24/18 20:30 Urine WBC 2-5 /hpf (0-5) 03/24/18 20:30 Ur Epithelial Cells MODERATE /lpf (FEW) 03/24/18 20:30 Urine Bacteria 1+ /hpf (NONE SEEN) H 03/24/18 20:30 Coarse Granular Casts 0-2 /lpf (NONE SEEN) H 03/24/18 20:30 Vancomycin Trough 21.4 ug/mL (5-10) H 03/31/18 08:00 - Physical Exam Vitals and I&O: Vital Signs Temp 98.2 F 03/31/18 05:56 Pulse 128 03/31/18 09:05 Resp 18 03/31/18 07:00 BP 130/85 03/31/18 09:05 Pulse Ox 100 03/31/18 08:00 Intake & Output 03/30/18 03/31/18 03/31/18 18:59 06:59 18:59 Intake Total 1130 1040 Balance 1130 1040 Weight (lbs) 42.184 kg 43.545 kg Intake: Intake, IV Amount 450 550 Piperacillin Sodium/ 200 300 Tazobact 4.5 gm In Sodium Chloride 0.9% 100 ml @ 100 mls/hr IV Q6HR [facility] Rx #:[id number] Vancomycin HCl 0.75 gm In 250 250 Sodium Chloride 0.9% 250 ml @ 165 mls/hr IV Q12HR [facility] Rx#:[id number] Tube Feeding 560 490 Other 120 Other: # Voids 2 4 # Bowel Movements 2 3 Stool Characteristics Liquid Liquid Liquid Brown Brown Brown Weight Source Bedscale Bedscale Active Medications: Current Medications Acetaminophen (Tylenol) 650 mg GT Q6HR PRN PRN Reason: Pain or Fever >101 Stop: 05/23/18 22:40 Last Admin: 03/29/18 11:08 Dose: 650 mg Acetaminophen/Hydrocodone Bitart ([place] 5mg/325mg) 1 tab GT Q6HR [facility] Stop: 05/24/18 00:00 Last Admin: 03/31/18 11:51 Dose: 1 tab Albuterol/Ipratropium (Duoneb Neb) 3 ml HHN Q6HRT [facility] Stop: 05/24/18 00:59 Last Admin: 03/31/18 07:11 Dose: 3 ml Amantadine HCl (Symmetrel) 100 mg GT Q12HR [facility] Stop: 05/24/18 00:44 Last Admin: 03/31/18 09:03 Dose: 100 mg Amlodipine Besylate (Norvasc) 10 mg GT DAILY [facility] Stop: 05/24/18 08:59 Last Admin: 03/31/18 09:05 Dose: 10 mg Ascorbic Acid (Vitamin C) 500 mg GT BID [facility] Stop: 05/24/18 08:59 Last Admin: 03/31/18 09:05 Dose: 500 mg Chlorhexidine Gluconate (Peridex) 15 ml MM 08,1999 [facility] Stop: 05/28/18 19:59 Last Admin: 03/31/18 08:00 Dose: 15 ml Diltiazem HCl (Cardizem) 30 mg GT BID [facility] Stop: 05/24/18 08:59 Last Admin: 03/31/18 09:05 Dose: 30 mg Diphenhydramine HCl (Benadryl) 12.5 mg GT Q6H PRN PRN Reason: Itching Stop: 05/23/18 22:40 Last Admin: 03/26/18 21:12 Dose: 12.5 mg Docusate Sodium (Colace) 100 mg PO BID [facility] Stop: 05/24/18 08:59 Last Admin: 03/31/18 09:05 Dose: 100 mg Famotidine (Pepcid) 20 mg GT DAILY [facility] Stop: 05/24/18 08:59 Last Admin: 03/31/18 09:05 Dose: 20 mg Ferrous Sulfate (Iron) 330 mg GT QDAC [facility] Stop: 05/24/18 07:29 Last Admin: 03/31/18 06:32 Dose: 330 mg Heparin Sodium (Porcine) (Heparin) 5,000 units SUBQ Q12HR [facility] Stop: 05/24/18 00:44 Last Admin: 03/31/18 09:05 Dose: 5,000 units Potassium Chloride/Dextrose/Sod Cl (D5-0.45ns W/20 Meq Kcl) 1,000 mls @ 40 mls/ hr IV .Q24H [facility] Stop: 05/27/18 13:44 Last Admin: 03/30/18 08:27 Dose: 40 mls/hr Piperacillin Sod/Tazobactam (Sod 4.5 gm/ Sodium Chloride) 100 mls @ 100 mls/hr IV Q6HR [facility] Stop: 05/27/18 17:59 Last Infusion: 03/31/18 06:10 Dose: Infused Vancomycin HCl 500 mg/ Sodium (Chloride) 100 mls @ 100 mls/hr IV Q12H [facility] Stop: 05/30/18 21:59 Insulin Aspart (Novolog Insulin Sliding Scale) 0 units SUBQ Q6HR [facility]; Protocol Stop: 05/24/18 00:00 Last Admin: 03/31/18 11:50 Dose: Not Given Insulin Detemir (Levemir Insulin) 10 units SUBQ HS [facility] Stop: 05/24/18 20:59 Last Admin: 03/30/18 20:31 Dose: Not Given Lactobacillus Rhamnosus (Culturelle 15b) 1 each PO DAILY [facility] Stop: 05/30/18 13:59 Levetiracetam (Keppra) 500 mg GT BID [facility] Stop: 05/24/18 08:59 Last Admin: 03/31/18 09:07 Dose: 500 mg Lorazepam (Ativan) 1 mg IVP Q4HR PRN; Protocol PRN Reason: Agitation Stop: 05/26/18 14:37 Last Admin: 03/31/18 05:07 Dose: 1 mg Magnesium Hydroxide (Milk Of Magnesia) 30 ml GT Q6H PRN PRN Reason: Constipation Stop: 05/23/18 22:40 Miscellaneous (Vancomycin Iv Per Pharmacy) 1 ea PRN [facility] Stop: 05/24/18 14:44 Miscellaneous (Zosyn Iv Per Pharmacy) 1 ea PRN PRN PRN Reason: PROTOCOL Stop: 05/27/18 13:39 Miscellaneous (Probiotic Screen) 1 ea PRN PRN PRN Reason: PROTOCOL Stop: 05/30/18 11:33 Morphine Sulfate (Morphine) 4 mg IVP Q6H PRN PRN Reason: Pain (Severe) Stop: 05/26/18 17:10 Last Admin: 03/31/18 09:31 Dose: 4 mg Ondansetron HCl (Zofran) 4 mg IV Q4H PRN PRN Reason: Nausea / Vomiting Stop: 05/23/18 22:44 Polyethylene Glycol (Miralax) 17 gm GT Q12H [facility] Stop: 05/23/18 22:44 Last Admin: 03/31/18 11:51 Dose: 17 gm Potassium Chloride (Potassium Chloride Elixir) 40 meq GT BID [facility] Stop: 05/24/18 08:59 Last Admin: 03/31/18 09:07 Dose: 40 meq Senna (Senna) 8.6 mg GT HS [facility] Stop: 05/28/18 20:59 Last Admin: 03/30/18 20:34 Dose: Not Given Simvastatin (Zocor) 10 mg GT HS [facility] Stop: 05/24/18 20:59 Last Admin: 03/30/18 20:28 Dose: 10 mg Sodium Phosphate (Fleet Enema) 135 ml RC PRN PRN PRN Reason: Constipation Stop: 05/23/18 22:40 - Procedures Procedures: Procedures Procedure Code Date RESPIRATORY VENTILATION, GREATER THAN 96 CONSECUTIVE HOURS [id number] 03/24/18 Nutritional Asmnt/Malnutr-PDOC - Dietary Evaluation Malnutrition Findings (Please click <Entered> for more info): Nutritional Asmnt/Malnutrition Start: 03/25/18 13: 56 Text: Status: Complete Freq: Protocol: Document 03/25/18 14:40 QAMAR (Rec: 03/25/18 14:51 QAMAR [email or web address]) Nutritional Asmnt/Malnutrition Patient General Information Nutritional Screening High Risk Diagnosis urosepsis, fever Pertinent Medical Hx/Surgical Hx HTN, asthma/COPD, PEG/Gtube Subjective Information Pt seen resting in bed, on trach. TF was running at 70ml/ hr at this time. Current Diet Order/ Nutrition Support glucerna 1.2 70ml x 20hr Pertinent Medications vit C, colace, iron, novolog, levemir, miralax, D5-0.45ns w 20meq kcl, senna Pertinent Labs 03/25 K 3.1, Cl 13, Cr 0.5, glucose 223., POC 145-222 03/24 Na 146, cl 112, BUN 28, glucose 161 Nutritional Hx/Data Height 1.47 m Height (Calculated Centimeters) 147.3 Current Weight (lbs) 40.823 kg Weight (Calculated Kilograms) 40.8 Weight (Calculated Grams) 68573.3 [place] Body Weight 96 Body Mass Index (BMI) 18.8 Weight Status Approriate GI Symptoms GI Symptoms None Last BM 03/25 Difficult in: None Usual diet at home diabetisource 70ml x 20hr daily at care facility per chart Skin Integrity/Comment: intact jason 13 Estimated Nutritional Goals BEE in Kcals: Using Current wt Calories/Kcals/Kg 30-35 Kcals Calculated 0986-2510 Protein: Using Current wt Protein g/k.2-1.4 Protein Calculated 49-57 Fluid: ml 1230-1435ml (1ml/kcal) Nutritional Problem 2. Problem Problem increased nutrition needs Etiology increased metabolic demand Signs/Symptoms: dx of urosepsis, fever 1. Problem Problem altered nutrition related labs Etiology possible endocrine dysfunction , electrolytes imbalance Signs/Symptoms: glucose 161-165, POC 145-222, K 3.1 Intervention/Recommendation Comments 1. Continue with current TF regimen. It provides 1680kcal, 84g protein, 1127ml free water, meeting 100% of nutritional needs 2. MD to adjust insulin regimen for optimal glycemic control 3. Monitor TF rate, tolerance, wt, skin integrity and labs 4. F/U as high risk in 2-3 days, 03/27-03/28 Expected Outcomes/Goals Expected Outcomes/Goals 1. Pt to meet at least 75% of nutritional needs via nutrition support with tolerance 2. Wt stability, skin to remain intact, labs to approach WNL.
[2018-03-31] MEDS: Lactobacillus Rhamnosus GG 15 Billion CFU CAP.SPRINK PO SCH (15:18)
--- NOTE | 2018-03-31 18:24 | Infectious Disease Prog Note ---
Infectious Disease Subjective - Review of Systems Service Date: 03/31/18 Subjective: cc pseudomonas pn hpi0 sputum pa r to merem abx adjusted ros no efvr o/e vss chaest vesicular ytrach sis2 absd soft] ext atrophy muscle dx pn vanco zosyn Infectious Disease Objective - Results Result Diagrams: 03/31/18 08:00 03/30/18 04:05 Recent Labs: Laboratory Last Values WBC 8.5 Th/cmm (4.8-10.8) 03/31/18 08:00 RBC 2.82 Mil/cmm (3.80-5.10) L 03/31/18 08:00 Hgb 9.4 gm/dL (12-16) L 03/31/18 08:00 Hct 27.3 % (41.0-60) L 03/31/18 08:00 MCV 96.7 fl (81-100) 03/31/18 08:00 MCH 33.2 pg (27.0-31.0) H 03/31/18 08:00 MCHC Differential 34.4 pg (28.0-36.0) 03/31/18 08:00 RDW 13.3 % (11.5-20.0) 03/31/18 08:00 Plt Count 217 Th/cmm (150-400) 03/31/18 08:00 MPV 9.8 fl 03/31/18 08:00 Neutrophils % 68.2 % (40.0-80.0) 03/31/18 08:00 Lymphocytes % 14.5 % (20.0-50.0) L 03/31/18 08:00 Monocytes % 12.0 % (2.0-10.0) H 03/31/18 08:00 Eosinophils % 5.0 % (0.0-5.0) 03/31/18 08:00 Basophils % 0.3 % (0.0-2.0) 03/31/18 08:00 Neutrophils (Manual) Not Reportable 03/28/18 04:35 PT 10.3 SECONDS (9.5-11.5) 03/24/18 20:10 INR 0.99 (0.5-1.4) 03/24/18 20:10 PTT (Actin FS) 24.1 SECONDS (26.0-38.0) L 03/24/18 20:10 Sodium 143 mEq/L (136-145) 03/30/18 04:05 Potassium 3.8 mEq/L (3.5-5.1) 03/30/18 04:05 Chloride 110 mEq/L (98-107) H 03/30/18 04:05 Carbon Dioxide 24.0 mEq/L (21.0-31.0) 03/30/18 04:05 Anion Gap 12.8 (7.0-16.0) 03/30/18 04:05 BUN 14 mg/dL (7-25) 03/30/18 04:05 Creatinine 0.5 mg/dL (0.6-1.2) L 03/30/18 04:05 Est GFR ( Amer) > 60.0 ml/min (>90) 03/30/18 04:05 Est GFR (Non-Af Amer) > 60.0 ml/min 03/30/18 04:05 BUN/Creatinine Ratio 28.0 03/30/18 04:05 Glucose 105 mg/dL (70-105) 03/30/18 04:05 POC Glucose 170 MG/DL (70 - 105) H 03/31/18 18:03 Hemoglobin A1c % 6.2 % (4.0-6.0) H 03/25/18 04:30 Whole Bld Lactic Acid 1.09 mmol/L (0.60-1.99) 03/24/18 20:10 Calcium 10.1 mg/dL (8.6-10.3) 03/30/18 04:05 Magnesium 2.0 mg/dL (1.9-2.7) 03/26/18 04:35 Total Bilirubin 0.3 mg/dL (0.3-1.0) 03/29/18 04:20 AST 22 U/L (13-39) 03/29/18 04:20 ALT 22 U/L (7-52) 03/29/18 04:20 Alkaline Phosphatase 157 U/L (34-104) H 03/29/18 04:20 Creatine Kinase 87 U/L (30-223) 03/24/18 20:10 Troponin I 0.01 ng/mL (0.01-0.05) 03/24/18 20:10 Total Protein 7.3 gm/dL (6.0-8.3) 03/29/18 04:20 Albumin 3.9 gm/dL (3.7-5.3) 03/29/18 04:20 Globulin 3.4 gm/dL 03/29/18 04:20 Albumin/Globulin Ratio 1.2 (1.0-1.8) 03/29/18 04:20 Serum , Qual NEGATIVE (NEGATIVE) 03/24/18 20:10 Urine Source MIDSTREAM 03/24/18 20:30 Urine Color YELLOW 03/24/18 20:30 Urine Clarity CLEAR (CLEAR) 03/24/18 20:30 Urine pH 7.0 (4.6 - 8.0) 03/24/18 20:30 Ur Specific [place] 1.010 (1.005-1.030) 03/24/18 20:30 Urine Protein TRACE mg/dL (NEGATIVE) 03/24/18 20:30 Urine Glucose (UA) NEGATIVE mg/dL (NEGATIVE) 03/24/18 20:30 Urine Ketones NEGATIVE mg/dL (NEGATIVE) 03/24/18 20:30 Urine Blood NEGATIVE (NEGATIVE) 03/24/18 20:30 Urine Nitrate NEGATIVE (NEGATIVE) 03/24/18 20:30 Urine Bilirubin NEGATIVE (NEGATIVE) 03/24/18 20:30 Urine Urobilinogen 1.0 E.U./dL (0.2 - 1.0) 03/24/18 20:30 Ur Leukocyte Esterase NEGATIVE (NEGATIVE) 03/24/18 20:30 Urine RBC 0-2 /hpf (0-5) 03/24/18 20:30 Urine WBC 2-5 /hpf (0-5) 03/24/18 20:30 Ur Epithelial Cells MODERATE /lpf (FEW) 03/24/18 20:30 Urine Bacteria 1+ /hpf (NONE SEEN) H 03/24/18 20:30 Coarse Granular Casts 0-2 /lpf (NONE SEEN) H 03/24/18 20:30 Vancomycin Trough 21.4 ug/mL (5-10) H 03/31/18 08:00 - Physical Exam Vitals and I&O: Vital Signs Temp 99.2 F 03/31/18 16:00 Pulse 106 03/31/18 18:00 Resp 14 03/31/18 18:00 BP 104/61 03/31/18 18:00 Pulse Ox 100 03/31/18 18:00 Intake & Output 03/30/18 03/31/18 03/31/18 18:59 06:59 18:59 Intake Total 1130 1040 350 Balance 1130 1040 350 Weight (lbs) 42.184 kg 43.545 kg Intake: Intake, IV Amount 450 550 350 Piperacillin Sodium/ 200 300 100 Tazobact 4.5 gm In Sodium Chloride 0.9% 100 ml @ 100 mls/hr IV Q6HR [facility] Rx #:[id number] Vancomycin HCl 0.75 gm In 250 250 250 Sodium Chloride 0.9% 250 ml @ 165 mls/hr IV Q12HR [facility] Rx#:[id number] Tube Feeding 560 490 Other 120 Other: # Voids 2 4 # Bowel Movements 2 3 Stool Characteristics Liquid Liquid Brown Brown Weight Source Bedscale Bedscale Active Medications: Current Medications Acetaminophen (Tylenol) 650 mg GT Q6HR PRN PRN Reason: Pain or Fever >101 Stop: 05/23/18 22:40 Last Admin: 03/31/18 17:17 Dose: 650 mg Acetaminophen/Hydrocodone Bitart ([place] 5mg/325mg) 1 tab GT Q6HR [facility] Stop: 05/24/18 00:00 Last Admin: 03/31/18 17:59 Dose: Not Given Albuterol/Ipratropium (Duoneb Neb) 3 ml HHN Q6HRT [facility] Stop: 05/24/18 00:59 Last Admin: 03/31/18 13:48 Dose: 3 ml Amantadine HCl (Symmetrel) 100 mg GT Q12HR [facility] Stop: 05/24/18 00:44 Last Admin: 03/31/18 09:03 Dose: 100 mg Amlodipine Besylate (Norvasc) 10 mg GT DAILY [facility] Stop: 05/24/18 08:59 Last Admin: 03/31/18 09:05 Dose: 10 mg Ascorbic Acid (Vitamin C) 500 mg GT BID [facility] Stop: 05/24/18 08:59 Last Admin: 03/31/18 17:17 Dose: 500 mg Chlorhexidine Gluconate (Peridex) 15 ml MM 08,1999 [facility] Stop: 05/28/18 19:59 Last Admin: 03/31/18 08:00 Dose: 15 ml Diltiazem HCl (Cardizem) 30 mg GT BID [facility] Stop: 05/24/18 08:59 Last Admin: 03/31/18 17:17 Dose: 30 mg Diphenhydramine HCl (Benadryl) 12.5 mg GT Q6H PRN PRN Reason: Itching Stop: 05/23/18 22:40 Last Admin: 03/26/18 21:12 Dose: 12.5 mg Docusate Sodium (Colace) 100 mg PO BID [facility] Stop: 05/24/18 08:59 Last Admin: 03/31/18 17:22 Dose: 100 mg Famotidine (Pepcid) 20 mg GT DAILY [facility] Stop: 05/24/18 08:59 Last Admin: 03/31/18 09:05 Dose: 20 mg Ferrous Sulfate (Iron) 330 mg GT QDAC [facility] Stop: 05/24/18 07:29 Last Admin: 03/31/18 06:32 Dose: 330 mg Heparin Sodium (Porcine) (Heparin) 5,000 units SUBQ Q12HR [facility] Stop: 05/24/18 00:44 Last Admin: 03/31/18 09:05 Dose: 5,000 units Potassium Chloride/Dextrose/Sod Cl (D5-0.45ns W/20 Meq Kcl) 1,000 mls @ 40 mls/ hr IV .Q24H [facility] Stop: 05/27/18 13:44 Last Admin: 03/30/18 08:27 Dose: 40 mls/hr Piperacillin Sod/Tazobactam (Sod 4.5 gm/ Sodium Chloride) 100 mls @ 100 mls/hr IV Q6HR [facility] Stop: 05/27/18 17:59 Last Infusion: 03/31/18 15:09 Dose: Infused Vancomycin HCl 500 mg/ Sodium (Chloride) 100 mls @ 100 mls/hr IV Q12H [facility] Stop: 05/30/18 21:59 Insulin Aspart (Novolog Insulin Sliding Scale) 0 units SUBQ Q6HR [facility]; Protocol Stop: 05/24/18 00:00 Last Admin: 03/31/18 18:07 Dose: 3 units Insulin Detemir (Levemir Insulin) 10 units SUBQ HS [facility] Stop: 05/24/18 20:59 Last Admin: 03/30/18 20:31 Dose: Not Given Lactobacillus Rhamnosus (Culturelle 15b) 1 each PO DAILY [facility] Stop: 05/30/18 13:59 Last Admin: 03/31/18 15:18 Dose: 1 each Levetiracetam (Keppra) 500 mg GT BID [facility] Stop: 05/24/18 08:59 Last Admin: 03/31/18 17:17 Dose: 500 mg Lorazepam (Ativan) 1 mg IVP Q4HR PRN; Protocol PRN Reason: Agitation Stop: 05/26/18 14:37 Last Admin: 03/31/18 05:07 Dose: 1 mg Magnesium Hydroxide (Milk Of Magnesia) 30 ml GT Q6H PRN PRN Reason: Constipation Stop: 05/23/18 22:40 Miscellaneous (Vancomycin Iv Per Pharmacy) 1 ea MC PRN [facility] Stop: 05/24/18 14:44 Miscellaneous (Zosyn Iv Per Pharmacy) 1 ea PRN PRN PRN Reason: PROTOCOL Stop: 05/27/18 13:39 Miscellaneous (Probiotic Screen) 1 ea PRN PRN PRN Reason: PROTOCOL Stop: 05/30/18 11:33 Morphine Sulfate (Morphine) 4 mg IVP Q6H PRN PRN Reason: Pain (Severe) Stop: 05/26/18 17:10 Last Admin: 03/31/18 15:18 Dose: 4 mg Ondansetron HCl (Zofran) 4 mg IV Q4H PRN PRN Reason: Nausea / Vomiting Stop: 05/23/18 22:44 Polyethylene Glycol (Miralax) 17 gm GT Q12H [facility] Stop: 05/23/18 22:44 Last Admin: 03/31/18 11:51 Dose: 17 gm Potassium Chloride (Potassium Chloride Elixir) 40 meq GT BID [facility] Stop: 05/24/18 08:59 Last Admin: 03/31/18 17:00 Dose: 40 meq Senna (Senna) 8.6 mg GT HS [facility] Stop: 05/28/18 20:59 Last Admin: 03/30/18 20:34 Dose: Not Given Simvastatin (Zocor) 10 mg GT HS [facility] Stop: 05/24/18 20:59 Last Admin: 03/30/18 20:28 Dose: 10 mg Sodium Phosphate (Fleet Enema) 135 ml RC PRN PRN PRN Reason: Constipation Stop: 05/23/18 22:40 - Procedures Procedures: Procedures Procedure Code Date RESPIRATORY VENTILATION, GREATER THAN 96 CONSECUTIVE HOURS [id number] 03/24/18 Nutritional Asmnt/Malnutr-PDOC - Dietary Evaluation Malnutrition Findings (Please click <Entered> for more info): Nutritional Asmnt/Malnutrition Start: 03/25/18 13: 56 Text: Status: Complete Freq: Protocol: Document 03/25/18 14:40 LCHENG (Rec: 03/25/18 14:51 LCTYSONG [email or web address]) Nutritional Asmnt/Malnutrition Patient General Information Nutritional Screening High Risk Diagnosis urosepsis, fever Pertinent Medical Hx/Surgical Hx HTN, asthma/COPD, PEG/Gtube Subjective Information Pt seen resting in bed, on trach. TF was running at 70ml/ hr at this time. Current Diet Order/ Nutrition Support glucerna 1.2 70ml x 20hr Pertinent Medications vit C, colace, iron, novolog, levemir, miralax, D5-0.45ns w 20meq kcl, senna Pertinent Labs 03/25 K 3.1, Cl 13, Cr 0.5, glucose 223., POC 145-222 03/24 Na 146, cl 112, BUN 28, glucose 161 Nutritional Hx/Data Height 1.47 m Height (Calculated Centimeters) 147.3 Current Weight (lbs) 40.823 kg Weight (Calculated Kilograms) 40.8 Weight (Calculated Grams) 91265.3 [place] Body Weight 96 Body Mass Index (BMI) 18.8 Weight Status Approriate GI Symptoms GI Symptoms None Last BM 03/25 Difficult in: None Usual diet at home diabetisource 70ml x 20hr daily at care facility per chart Skin Integrity/Comment: intact jason 13 Estimated Nutritional Goals BEE in Kcals: Using Current wt Calories/Kcals/Kg 30-35 Kcals Calculated 7926-7046 Protein: Using Current wt Protein g/k.2-1.4 Protein Calculated 49-57 Fluid: ml 1230-1435ml (1ml/kcal) Nutritional Problem 2. Problem Problem increased nutrition needs Etiology increased metabolic demand Signs/Symptoms: dx of urosepsis, fever 1. Problem Problem altered nutrition related labs Etiology possible endocrine dysfunction , electrolytes imbalance Signs/Symptoms: glucose 161-165, POC 145-222, K 3.1 Intervention/Recommendation Comments 1. Continue with current TF regimen. It provides 1680kcal, 84g protein, 1127ml free water, meeting 100% of nutritional needs 2. MD to adjust insulin regimen for optimal glycemic control 3. Monitor TF rate, tolerance, wt, skin integrity and labs 4. F/U as high risk in 2-3 days, 03/27-03/28 Expected Outcomes/Goals Expected Outcomes/Goals 1. Pt to meet at least 75% of nutritional needs via nutrition support with tolerance 2. Wt stability, skin to remain intact, labs to approach WNL.
--- NOTE | 2018-03-31 21:00 | Internal Medicine Prog Note ---
Internal Medicine Subjective - Subjective Service Date: 03/31/18 Patient seen and examined:: with staff (SHE HAS HIGH RESIDUAL TODAY.) Patient is:: awake, non-verbal, in bed, confused Per staff patient has:: no adverse event Internal Medicine Objective - Results Result Diagrams: 03/31/18 08:00 03/30/18 04:05 Recent Labs: Laboratory Last Values WBC 8.5 Th/cmm (4.8-10.8) 03/31/18 08:00 RBC 2.82 Mil/cmm (3.80-5.10) L 03/31/18 08:00 Hgb 9.4 gm/dL (12-16) L 03/31/18 08:00 Hct 27.3 % (41.0-60) L 03/31/18 08:00 MCV 96.7 fl (81-100) 03/31/18 08:00 MCH 33.2 pg (27.0-31.0) H 03/31/18 08:00 MCHC Differential 34.4 pg (28.0-36.0) 03/31/18 08:00 RDW 13.3 % (11.5-20.0) 03/31/18 08:00 Plt Count 217 Th/cmm (150-400) 03/31/18 08:00 MPV 9.8 fl 03/31/18 08:00 Neutrophils % 68.2 % (40.0-80.0) 03/31/18 08:00 Lymphocytes % 14.5 % (20.0-50.0) L 03/31/18 08:00 Monocytes % 12.0 % (2.0-10.0) H 03/31/18 08:00 Eosinophils % 5.0 % (0.0-5.0) 03/31/18 08:00 Basophils % 0.3 % (0.0-2.0) 03/31/18 08:00 Neutrophils (Manual) Not Reportable 03/28/18 04:35 PT 10.3 SECONDS (9.5-11.5) 03/24/18 20:10 INR 0.99 (0.5-1.4) 03/24/18 20:10 PTT (Actin FS) 24.1 SECONDS (26.0-38.0) L 03/24/18 20:10 Sodium 143 mEq/L (136-145) 03/30/18 04:05 Potassium 3.8 mEq/L (3.5-5.1) 03/30/18 04:05 Chloride 110 mEq/L (98-107) H 03/30/18 04:05 Carbon Dioxide 24.0 mEq/L (21.0-31.0) 03/30/18 04:05 Anion Gap 12.8 (7.0-16.0) 03/30/18 04:05 BUN 14 mg/dL (7-25) 03/30/18 04:05 Creatinine 0.5 mg/dL (0.6-1.2) L 03/30/18 04:05 Est GFR ( Amer) > 60.0 ml/min (>90) 03/30/18 04:05 Est GFR (Non-Af Amer) > 60.0 ml/min 03/30/18 04:05 BUN/Creatinine Ratio 28.0 03/30/18 04:05 Glucose 105 mg/dL (70-105) 03/30/18 04:05 POC Glucose 94 MG/DL (70 - 105) 03/31/18 20:28 Hemoglobin A1c % 6.2 % (4.0-6.0) H 03/25/18 04:30 Whole Bld Lactic Acid 1.09 mmol/L (0.60-1.99) 03/24/18 20:10 Calcium 10.1 mg/dL (8.6-10.3) 03/30/18 04:05 Magnesium 2.0 mg/dL (1.9-2.7) 03/26/18 04:35 Total Bilirubin 0.3 mg/dL (0.3-1.0) 03/29/18 04:20 AST 22 U/L (13-39) 03/29/18 04:20 ALT 22 U/L (7-52) 03/29/18 04:20 Alkaline Phosphatase 157 U/L (34-104) H 03/29/18 04:20 Creatine Kinase 87 U/L (30-223) 03/24/18 20:10 Troponin I 0.01 ng/mL (0.01-0.05) 03/24/18 20:10 Total Protein 7.3 gm/dL (6.0-8.3) 03/29/18 04:20 Albumin 3.9 gm/dL (3.7-5.3) 03/29/18 04:20 Globulin 3.4 gm/dL 03/29/18 04:20 Albumin/Globulin Ratio 1.2 (1.0-1.8) 03/29/18 04:20 Serum , Qual NEGATIVE (NEGATIVE) 03/24/18 20:10 Urine Source MIDSTREAM 03/24/18 20:30 Urine Color YELLOW 03/24/18 20:30 Urine Clarity CLEAR (CLEAR) 03/24/18 20:30 Urine pH 7.0 (4.6 - 8.0) 03/24/18 20:30 Ur Specific [place] 1.010 (1.005-1.030) 03/24/18 20:30 Urine Protein TRACE mg/dL (NEGATIVE) 03/24/18 20:30 Urine Glucose (UA) NEGATIVE mg/dL (NEGATIVE) 03/24/18 20:30 Urine Ketones NEGATIVE mg/dL (NEGATIVE) 03/24/18 20:30 Urine Blood NEGATIVE (NEGATIVE) 03/24/18 20:30 Urine Nitrate NEGATIVE (NEGATIVE) 03/24/18 20:30 Urine Bilirubin NEGATIVE (NEGATIVE) 03/24/18 20:30 Urine Urobilinogen 1.0 E.U./dL (0.2 - 1.0) 03/24/18 20:30 Ur Leukocyte Esterase NEGATIVE (NEGATIVE) 03/24/18 20:30 Urine RBC 0-2 /hpf (0-5) 03/24/18 20:30 Urine WBC 2-5 /hpf (0-5) 03/24/18 20:30 Ur Epithelial Cells MODERATE /lpf (FEW) 03/24/18 20:30 Urine Bacteria 1+ /hpf (NONE SEEN) H 03/24/18 20:30 Coarse Granular Casts 0-2 /lpf (NONE SEEN) H 03/24/18 20:30 Vancomycin Trough 21.4 ug/mL (5-10) H 03/31/18 08:00 - Physical Exam Vitals and I&O: Vital Signs Temp 99.2 F 03/31/18 16:00 Pulse 95 03/31/18 19:27 Resp 14 03/31/18 18:00 BP 104/61 03/31/18 18:00 Pulse Ox 99 03/31/18 19:27 Intake & Output 03/31/18 03/31/18 04/01/18 06:59 18:59 06:59 Intake Total 1040 850 Output Total 4 Balance 1040 846 Weight (lbs) 43.545 kg 43.545 kg Intake: Intake, IV Amount 550 350 Piperacillin Sodium/ 300 100 Tazobact 4.5 gm In Sodium Chloride 0.9% 100 ml @ 100 mls/hr IV Q6HR [facility] Rx #:[id number] Vancomycin HCl 0.75 gm In 250 250 Sodium Chloride 0.9% 250 ml @ 165 mls/hr IV Q12HR [facility] Rx#:[id number] Tube Feeding 490 100 Other 400 Output: Urine 4 Other: # Voids 4 # Bowel Movements 3 Stool Characteristics Liquid Brown Weight Source Bedscale Bedscale Active Medications: Current Medications Acetaminophen (Tylenol) 650 mg GT Q6HR PRN PRN Reason: Pain or Fever >101 Stop: 05/23/18 22:40 Last Admin: 03/31/18 17:17 Dose: 650 mg Acetaminophen/Hydrocodone Bitart ([place] 5mg/325mg) 1 tab GT Q6HR [facility] Stop: 05/24/18 00:00 Last Admin: 03/31/18 17:59 Dose: Not Given Albuterol/Ipratropium (Duoneb Neb) 3 ml HHN Q6HRT [facility] Stop: 05/24/18 00:59 Last Admin: 03/31/18 19:27 Dose: 3 ml Amantadine HCl (Symmetrel) 100 mg GT Q12HR [facility] Stop: 05/24/18 00:44 Last Admin: 03/31/18 20:42 Dose: 100 mg Amlodipine Besylate (Norvasc) 10 mg GT DAILY [facility] Stop: 05/24/18 08:59 Last Admin: 03/31/18 09:05 Dose: 10 mg Ascorbic Acid (Vitamin C) 500 mg GT BID [facility] Stop: 05/24/18 08:59 Last Admin: 03/31/18 17:17 Dose: 500 mg Chlorhexidine Gluconate (Peridex) 15 ml MM 0800,1999 [facility] Stop: 05/28/18 19:59 Last Admin: 03/31/18 20:42 Dose: 15 ml Diltiazem HCl (Cardizem) 30 mg GT BID [facility] Stop: 05/24/18 08:59 Last Admin: 03/31/18 17:17 Dose: 30 mg Diphenhydramine HCl (Benadryl) 12.5 mg GT Q6H PRN PRN Reason: Itching Stop: 05/23/18 22:40 Last Admin: 03/26/18 21:12 Dose: 12.5 mg Docusate Sodium (Colace) 100 mg PO BID [facility] Stop: 05/24/18 08:59 Last Admin: 03/31/18 17:22 Dose: 100 mg Famotidine (Pepcid) 20 mg GT DAILY [facility] Stop: 05/24/18 08:59 Last Admin: 03/31/18 09:05 Dose: 20 mg Ferrous Sulfate (Iron) 330 mg GT QDAC [facility] Stop: 05/24/18 07:29 Last Admin: 03/31/18 06:32 Dose: 330 mg Heparin Sodium (Porcine) (Heparin) 5,000 units SUBQ Q12HR [facility] Stop: 05/24/18 00:44 Last Admin: 03/31/18 20:41 Dose: 5,000 units Potassium Chloride/Dextrose/Sod Cl (D5-0.45ns W/20 Meq Kcl) 1,000 mls @ 40 mls/ hr IV .Q24H [facility] Stop: 05/27/18 13:44 Last Admin: 03/30/18 08:27 Dose: 40 mls/hr Piperacillin Sod/Tazobactam (Sod 4.5 gm/ Sodium Chloride) 100 mls @ 100 mls/hr IV Q6HR [facility] Stop: 05/27/18 17:59 Last Admin: 03/31/18 18:36 Dose: 100 mls/hr Vancomycin HCl 500 mg/ Sodium (Chloride) 100 mls @ 100 mls/hr IV Q12H [facility] Stop: 05/30/18 21:59 Insulin Aspart (Novolog Insulin Sliding Scale) 0 units SUBQ Q6HR [facility]; Protocol Stop: 05/24/18 00:00 Last Admin: 03/31/18 18:07 Dose: 3 units Insulin Detemir (Levemir Insulin) 10 units SUBQ HS [facility] Stop: 05/24/18 20:59 Last Admin: 03/30/18 20:31 Dose: Not Given Lactobacillus Rhamnosus (Culturelle 15b) 1 each PO DAILY [facility] Stop: 05/30/18 13:59 Last Admin: 03/31/18 15:18 Dose: 1 each Levetiracetam (Keppra) 500 mg GT BID [facility] Stop: 05/24/18 08:59 Last Admin: 03/31/18 17:17 Dose: 500 mg Lorazepam (Ativan) 1 mg IVP Q4HR PRN; Protocol PRN Reason: Agitation Stop: 05/26/18 14:37 Last Admin: 03/31/18 05:07 Dose: 1 mg Magnesium Hydroxide (Milk Of Magnesia) 30 ml GT Q6H PRN PRN Reason: Constipation Stop: 05/23/18 22:40 Miscellaneous (Vancomycin Iv Per Pharmacy) 1 ea MC PRN [facility] Stop: 05/24/18 14:44 Miscellaneous (Zosyn Iv Per Pharmacy) 1 ea PRN PRN PRN Reason: PROTOCOL Stop: 05/27/18 13:39 Miscellaneous (Probiotic Screen) 1 ea PRN PRN PRN Reason: PROTOCOL Stop: 05/30/18 11:33 Morphine Sulfate (Morphine) 4 mg IVP Q6H PRN PRN Reason: Pain (Severe) Stop: 05/26/18 17:10 Last Admin: 03/31/18 20:41 Dose: 4 mg Ondansetron HCl (Zofran) 4 mg IV Q4H PRN PRN Reason: Nausea / Vomiting Stop: 05/23/18 22:44 Polyethylene Glycol (Miralax) 17 gm GT Q12H [facility] Stop: 05/23/18 22:44 Last Admin: 03/31/18 11:51 Dose: 17 gm Potassium Chloride (Potassium Chloride Elixir) 40 meq GT BID [facility] Stop: 05/24/18 08:59 Last Admin: 03/31/18 17:00 Dose: 40 meq Senna (Senna) 8.6 mg GT HS [facility] Stop: 05/28/18 20:59 Last Admin: 03/31/18 20:41 Dose: 8.6 mg Simvastatin (Zocor) 10 mg GT HS [facility] Stop: 05/24/18 20:59 Last Admin: 03/31/18 20:42 Dose: 10 mg Sodium Phosphate (Fleet Enema) 135 ml RC PRN PRN PRN Reason: Constipation Stop: 05/23/18 22:40 General: demented HEENT: NC/AT, PERRLA, EOMI, anicteric sclerae, throat clear Neck: Supple, No JVD, No thyromegaly, +2 carotid pulse wo bruit, No LAD Cardiovascular: Normal S1, Normal S2, without murmur Abdomen: soft, non-tender, non-distended Extremities: clear Neurological: no change - Procedures Procedures: Procedures Procedure Code Date RESPIRATORY VENTILATION, GREATER THAN 96 CONSECUTIVE HOURS [id number] 03/24/18 Internal Medicine Assmt/Plan - Assessment Assessment: 1.UTI. 2.SEPSIS. 3.RESPIRATORY FAILURE. 4.SAH. 5.DM. 6.ANEMIA. - Plan Plan: CONTINUE ON CURRENT MEDICATION AND DIET.REGLAN 10 MG THROUGH GT TID. Nutritional Asmnt/Malnutr-PDOC - Dietary Evaluation Malnutrition Findings (Please click <Entered> for more info): Nutritional Asmnt/Malnutrition Start: 03/25/18 13: 56 Text: Status: Complete Freq: Protocol: Document 03/25/18 14:40 LCTYSONG (Rec: 03/25/18 14:51 LCTYSONG [email or web address]) Nutritional Asmnt/Malnutrition Patient General Information Nutritional Screening High Risk Diagnosis urosepsis, fever Pertinent Medical Hx/Surgical Hx HTN, asthma/COPD, PEG/Gtube Subjective Information Pt seen resting in bed, on trach. TF was running at 70ml/ hr at this time. Current Diet Order/ Nutrition Support glucerna 1.2 70ml x 20hr Pertinent Medications vit C, colace, iron, novolog, levemir, miralax, D5-0.45ns w 20meq kcl, senna Pertinent Labs 03/25 K 3.1, Cl 13, Cr 0.5, glucose 223., POC 145-222 03/24 Na 146, cl 112, BUN 28, glucose 161 Nutritional Hx/Data Height 1.47 m Height (Calculated Centimeters) 147.3 Current Weight (lbs) 40.823 kg Weight (Calculated Kilograms) 40.8 Weight (Calculated Grams) 94705.3 [place] Body Weight 96 Body Mass Index (BMI) 18.8 Weight Status Approriate GI Symptoms GI Symptoms None Last BM 03/25 Difficult in: None Usual diet at home diabetisource 70ml x 20hr daily at care facility per chart Skin Integrity/Comment: intact jason 13 Estimated Nutritional Goals BEE in Kcals: Using Current wt Calories/Kcals/Kg 30-35 Kcals Calculated 2528-6250 Protein: Using Current wt Protein g/k.2-1.4 Protein Calculated 49-57 Fluid: ml 1230-1435ml (1ml/kcal) Nutritional Problem 2. Problem Problem increased nutrition needs Etiology increased metabolic demand Signs/Symptoms: dx of urosepsis, fever 1. Problem Problem altered nutrition related labs Etiology possible endocrine dysfunction , electrolytes imbalance Signs/Symptoms: glucose 161-165, POC 145-222, K 3.1 Intervention/Recommendation Comments 1. Continue with current TF regimen. It provides 1680kcal, 84g protein, 1127ml free water, meeting 100% of nutritional needs 2. MD to adjust insulin regimen for optimal glycemic control 3. Monitor TF rate, tolerance, wt, skin integrity and labs 4. F/U as high risk in 2-3 days, 03/27-03/28 Expected Outcomes/Goals Expected Outcomes/Goals 1. Pt to meet at least 75% of nutritional needs via nutrition support with tolerance 2. Wt stability, skin to remain intact, labs to approach WNL.
[2018-03-31] MEDS: Insulin Detemir 100 units/mL 10mL Vial SUBQ SCH (21:19)
[2018-03-31] MEDS: D5-0.45NS w/20 mEq KCL 1,000 ML IV SCH (21:39)
[2018-03-31] MEDS: Vancomycin HCl 500 MG in Sodium Chloride 0.9% 100 ML IV SCH (21:40)
[2018-04-01] MEDS: INSULIN ASPART SLIDING SCALE 100 UNITS/ML UNIT SUBQ SCH ×4 (00:23→17:14)
[2018-04-01] MEDS: Hydrocodone/APAP 5mg/325mg Tab GT SCH ×2 (00:32→06:20)
[2018-04-01] MEDS: Albuterol/Ipratropium Neb 3 ML AERS HHN SCH ×4 (00:41→18:31)
[2018-04-01 04:40] LABS: % EOSINOPHILS 6.6 % (0.0-5.0); % LYMPHOCYTES 22.6 % (20.0-50.0); % MONOCYTES 12.8 % (2.0-10.0); BASOPHILE ABSOLUTE 0.1 Th/cumm (0-0.2); EOSINOPHILE ABSOLUTE 0.5 Th/cmm (0.1-0.4); HEMATOCRIT 27.1 % (41.0-60); HEMOGLOBIN 9.1 gm/dL (12-16); LYMPHOCYTE ABSOLUTE 1.6 Th/cmm (1.5-3.0); MEAN CELL VOLUME 97.1 fl (81-100); MEAN CORPUSCULAR HEMOGLOBIN 32.6 pg (27.0-31.0); MEAN CORPUSCULAR HGB CONC 33.6 pg (28.0-36.0); MEAN PLATELET VOLUME 9.9 fl; MONOCYTE ABSOLUTE 0.9 Th/cmm (0.3-1.0); NEUTROPHILE ABSOLUTE 4.2 Th/cmm (1.8-8.0); PLATELET COUNT 210 Th/cmm (150-400); RED BLOOD COUNT 2.79 Mil/cmm (3.80-5.10); RED CELL DISTRIBUTION WIDTH 12.8 % (11.5-20.0); WHITE BLOOD COUNT 7.3 Th/cmm (4.8-10.8)
[2018-04-01] MEDS: Ferrous Sulfate 300 MG/5 ML UDC GT SCH (06:32)
[2018-04-01] MEDS: Diltiazem 30 mg Tab GT SCH ×2 (08:31→16:34)
[2018-04-01] MEDS: Lactobacillus Rhamnosus GG 15 Billion CFU CAP.SPRINK PO SCH (08:32)
[2018-04-01] MEDS: Multivitamin w/ Minerals Tab GT SCH (08:33)
[2018-04-01] MEDS: Potassium Chloride Elixir 20 mEq /15 mL UDC GT SCH ×2 (08:34→16:33)
[2018-04-01] MEDS: Chlorhexidine Gluconate 0.12% 15mL Mouthwash MM SCH ×2 (08:38→20:30)
[2018-04-01] MEDS: Levetiracetam 500 mg/5mL 5mL UDSyr *for ORAL USE ONLY GT SCH ×2 (08:39→16:33)
[2018-04-01] MEDS: Vancomycin HCl 500 MG in Sodium Chloride 0.9% 100 ML IV SCH ×2 (09:12→22:57)
[2018-04-01] MEDS: POLYETHYLENE GLYCOL 3350 17 GM PACK GT SCH ×2 (11:40→23:10)
[2018-04-01] MEDS: Morphine Sulfate 4 mg/mL 1mL Syr IVP PRN ×2 (16:57→22:23)
--- NOTE | 2018-04-01 18:38 | Infectious Disease Prog Note ---
Infectious Disease Subjective - Review of Systems Service Date: 04/01/18 Subjective: cc pseudomonas pn hpi0 d/w staff on bronchodilator for resp failure ros no efvr o/e vss chaest vesicular ytrach sis2 absd soft] ext atrophy muscle dx pn vanco karlan Infectious Disease Objective - Results Result Diagrams: 04/01/18 04:30 03/30/18 04:05 Recent Labs: Laboratory Last Values WBC 7.3 Th/cmm (4.8-10.8) 04/01/18 04:30 RBC 2.79 Mil/cmm (3.80-5.10) L 04/01/18 04:30 Hgb 9.1 gm/dL (12-16) L 04/01/18 04:30 Hct 27.1 % (41.0-60) L 04/01/18 04:30 MCV 97.1 fl (81-100) 04/01/18 04:30 MCH 32.6 pg (27.0-31.0) H 04/01/18 04:30 MCHC Differential 33.6 pg (28.0-36.0) 04/01/18 04:30 RDW 12.8 % (11.5-20.0) 04/01/18 04:30 Plt Count 210 Th/cmm (150-400) 04/01/18 04:30 MPV 9.9 fl 04/01/18 04:30 Neutrophils % 57.0 % (40.0-80.0) 04/01/18 04:30 Lymphocytes % 22.6 % (20.0-50.0) 04/01/18 04:30 Monocytes % 12.8 % (2.0-10.0) H 04/01/18 04:30 Eosinophils % 6.6 % (0.0-5.0) H 04/01/18 04:30 Basophils % 1.0 % (0.0-2.0) 04/01/18 04:30 Neutrophils (Manual) Not Reportable 03/28/18 04:35 PT 10.3 SECONDS (9.5-11.5) 03/24/18 20:10 INR 0.99 (0.5-1.4) 03/24/18 20:10 PTT (Actin FS) 24.1 SECONDS (26.0-38.0) L 03/24/18 20:10 Sodium 143 mEq/L (136-145) 03/30/18 04:05 Potassium 3.8 mEq/L (3.5-5.1) 03/30/18 04:05 Chloride 110 mEq/L (98-107) H 03/30/18 04:05 Carbon Dioxide 24.0 mEq/L (21.0-31.0) 03/30/18 04:05 Anion Gap 12.8 (7.0-16.0) 03/30/18 04:05 BUN 14 mg/dL (7-25) 03/30/18 04:05 Creatinine 0.5 mg/dL (0.6-1.2) L 03/30/18 04:05 Est GFR ( Amer) > 60.0 ml/min (>90) 03/30/18 04:05 Est GFR (Non-Af Amer) > 60.0 ml/min 03/30/18 04:05 BUN/Creatinine Ratio 28.0 03/30/18 04:05 Glucose 105 mg/dL (70-105) 03/30/18 04:05 POC Glucose 160 MG/DL (70 - 105) H 04/01/18 17:07 Hemoglobin A1c % 6.2 % (4.0-6.0) H 03/25/18 04:30 Whole Bld Lactic Acid 1.09 mmol/L (0.60-1.99) 03/24/18 20:10 Calcium 10.1 mg/dL (8.6-10.3) 03/30/18 04:05 Magnesium 2.0 mg/dL (1.9-2.7) 03/26/18 04:35 Total Bilirubin 0.3 mg/dL (0.3-1.0) 03/29/18 04:20 AST 22 U/L (13-39) 03/29/18 04:20 ALT 22 U/L (7-52) 03/29/18 04:20 Alkaline Phosphatase 157 U/L (34-104) H 03/29/18 04:20 Creatine Kinase 87 U/L (30-223) 03/24/18 20:10 Troponin I 0.01 ng/mL (0.01-0.05) 03/24/18 20:10 Total Protein 7.3 gm/dL (6.0-8.3) 03/29/18 04:20 Albumin 3.9 gm/dL (3.7-5.3) 03/29/18 04:20 Globulin 3.4 gm/dL 03/29/18 04:20 Albumin/Globulin Ratio 1.2 (1.0-1.8) 03/29/18 04:20 Serum , Qual NEGATIVE (NEGATIVE) 03/24/18 20:10 Urine Source MIDSTREAM 03/24/18 20:30 Urine Color YELLOW 03/24/18 20:30 Urine Clarity CLEAR (CLEAR) 03/24/18 20:30 Urine pH 7.0 (4.6 - 8.0) 03/24/18 20:30 Ur Specific [place] 1.010 (1.005-1.030) 03/24/18 20:30 Urine Protein TRACE mg/dL (NEGATIVE) 03/24/18 20:30 Urine Glucose (UA) NEGATIVE mg/dL (NEGATIVE) 03/24/18 20:30 Urine Ketones NEGATIVE mg/dL (NEGATIVE) 03/24/18 20:30 Urine Blood NEGATIVE (NEGATIVE) 03/24/18 20:30 Urine Nitrate NEGATIVE (NEGATIVE) 03/24/18 20:30 Urine Bilirubin NEGATIVE (NEGATIVE) 03/24/18 20:30 Urine Urobilinogen 1.0 E.U./dL (0.2 - 1.0) 03/24/18 20:30 Ur Leukocyte Esterase NEGATIVE (NEGATIVE) 03/24/18 20:30 Urine RBC 0-2 /hpf (0-5) 03/24/18 20:30 Urine WBC 2-5 /hpf (0-5) 03/24/18 20:30 Ur Epithelial Cells MODERATE /lpf (FEW) 03/24/18 20:30 Urine Bacteria 1+ /hpf (NONE SEEN) H 03/24/18 20:30 Coarse Granular Casts 0-2 /lpf (NONE SEEN) H 03/24/18 20:30 Vancomycin Trough 21.4 ug/mL (5-10) H 03/31/18 08:00 - Physical Exam Vitals and I&O: Vital Signs Temp 99.2 F 04/01/18 16:00 Pulse 90 04/01/18 18:31 Resp 14 04/01/18 17:52 BP 107/64 04/01/18 17:52 Pulse Ox 100 04/01/18 18:31 Intake & Output 03/31/18 04/01/18 04/01/18 18:59 06:59 18:59 Intake Total 1850 1345 810 Output Total 4 Balance 1846 1345 810 Weight (lbs) 43.545 kg 40.37 kg 40.37 kg Intake: Intake, IV Amount 1350 400 100 D5-0.45NS w/20 mEq KCL 1, 1000 000 ml @ 40 mls/hr IV . Q24H [facility] Rx#:[id number] Piperacillin Sodium/ 100 300 100 Tazobact 4.5 gm In Sodium Chloride 0.9% 100 ml @ 100 mls/hr IV Q6HR [facility] Rx #:[id number] Vancomycin HCl 0.75 gm In 250 Sodium Chloride 0.9% 250 ml @ 165 mls/hr IV Q12HR [facility] Rx#:[id number] Vancomycin HCl 500 mg In 100 Sodium Chloride 0.9% 100 ml @ 100 mls/hr IV Q12H [facility] Rx#:[id number] Tube Feeding 100 515 560 Other 400 430 150 Output: Urine 4 Other: # Voids 2 4 # Bowel Movements 1 2 Stool Characteristics Liquid Liquid Brown Brown Green Green Weight Source Bedscale Bedscale Bedscale Active Medications: Current Medications Acetaminophen (Tylenol) 650 mg GT Q6HR PRN PRN Reason: Pain or Fever >101 Stop: 05/23/18 22:40 Last Admin: 03/31/18 17:17 Dose: 650 mg Albuterol/Ipratropium (Duoneb Neb) 3 ml HHN Q6HRT [facility] Stop: 05/24/18 00:59 Last Admin: 04/01/18 18:31 Dose: 3 ml Amantadine HCl (Symmetrel) 100 mg GT Q12HR [facility] Stop: 05/24/18 00:44 Last Admin: 04/01/18 08:33 Dose: 100 mg Amlodipine Besylate (Norvasc) 10 mg GT DAILY [facility] Stop: 05/24/18 08:59 Last Admin: 04/01/18 08:32 Dose: 10 mg Ascorbic Acid (Vitamin C) 500 mg GT BID [facility] Stop: 05/24/18 08:59 Last Admin: 04/01/18 16:33 Dose: 500 mg Chlorhexidine Gluconate (Peridex) 15 ml MM 08,1999 [facility] Stop: 05/28/18 19:59 Last Admin: 04/01/18 08:38 Dose: 15 ml Diltiazem HCl (Cardizem) 30 mg GT BID [facility] Stop: 05/24/18 08:59 Last Admin: 04/01/18 16:34 Dose: 30 mg Diphenhydramine HCl (Benadryl) 12.5 mg GT Q6H PRN PRN Reason: Itching Stop: 05/23/18 22:40 Last Admin: 03/26/18 21:12 Dose: 12.5 mg Docusate Sodium (Colace) 100 mg PO BID [facility] Stop: 05/24/18 08:59 Last Admin: 04/01/18 16:34 Dose: 100 mg Famotidine (Pepcid) 20 mg GT DAILY [facility] Stop: 05/24/18 08:59 Last Admin: 04/01/18 08:34 Dose: 20 mg Ferrous Sulfate (Iron) 330 mg GT QDAC [facility] Stop: 05/24/18 07:29 Last Admin: 04/01/18 06:32 Dose: 330 mg Potassium Chloride/Dextrose/Sod Cl (D5-0.45ns W/20 Meq Kcl) 1,000 mls @ 40 mls/ hr IV .Q24H [facility] Stop: 05/27/18 13:44 Last Admin: 03/31/18 21:39 Dose: 40 mls/hr Piperacillin Sod/Tazobactam (Sod 4.5 gm/ Sodium Chloride) 100 mls @ 100 mls/hr IV Q6HR [facility] Stop: 05/27/18 17:59 Last Admin: 04/01/18 17:02 Dose: 100 mls/hr Vancomycin HCl 500 mg/ Sodium (Chloride) 100 mls @ 100 mls/hr IV Q12H [facility] Stop: 05/30/18 21:59 Last Admin: 04/01/18 09:12 Dose: 100 mls/hr Insulin Aspart (Novolog Insulin Sliding Scale) 0 units SUBQ Q6HR [facility]; Protocol Stop: 05/24/18 00:00 Last Admin: 04/01/18 17:14 Dose: 3 units Insulin Detemir (Levemir Insulin) 10 units SUBQ HS [facility] Stop: 05/24/18 20:59 Last Admin: 03/31/18 21:19 Dose: Not Given Lactobacillus Rhamnosus (Culturelle 15b) 1 each PO DAILY [facility] Stop: 05/30/18 13:59 Last Admin: 04/01/18 08:32 Dose: 1 each Levetiracetam (Keppra) 500 mg GT BID [facility] Stop: 05/24/18 08:59 Last Admin: 04/01/18 16:33 Dose: 500 mg Lorazepam (Ativan) 1 mg IVP Q4HR PRN; Protocol PRN Reason: Agitation Stop: 05/26/18 14:37 Last Admin: 04/01/18 09:37 Dose: 1 mg Magnesium Hydroxide (Milk Of Magnesia) 30 ml GT Q6H PRN PRN Reason: Constipation Stop: 05/23/18 22:40 Metoclopramide HCl (Reglan) 10 mg GT Q8H [facility] Stop: 05/30/18 21:29 Last Admin: 04/01/18 13:30 Dose: 10 mg Miscellaneous (Vancomycin Iv Per Pharmacy) 1 [facility] PRN [facility] Stop: 05/24/18 14:44 Miscellaneous (Zosyn Iv Per Pharmacy) 1 [facility] PRN PRN PRN Reason: PROTOCOL Stop: 05/27/18 13:39 Miscellaneous (Probiotic Screen) 1 [facility] PRN PRN PRN Reason: PROTOCOL Stop: 05/30/18 11:33 Morphine Sulfate (Morphine) 4 mg IVP Q6H PRN PRN Reason: Pain (Severe) Stop: 05/26/18 17:10 Last Admin: 04/01/18 16:57 Dose: 4 mg Ondansetron HCl (Zofran) 4 mg IV Q4H PRN PRN Reason: Nausea / Vomiting Stop: 05/23/18 22:44 Polyethylene Glycol (Miralax) 17 gm GT Q12H [facility] Stop: 05/23/18 22:44 Last Admin: 04/01/18 11:40 Dose: 17 gm Potassium Chloride (Potassium Chloride Elixir) 40 meq GT BID [facility] Stop: 05/24/18 08:59 Last Admin: 04/01/18 16:33 Dose: 40 meq Senna (Senna) 8.6 mg GT HS [facility] Stop: 05/28/18 20:59 Last Admin: 03/31/18 20:41 Dose: 8.6 mg Simvastatin (Zocor) 10 mg GT HS [facility] Stop: 05/24/18 20:59 Last Admin: 03/31/18 20:42 Dose: 10 mg Sodium Phosphate (Fleet Enema) 135 ml RC PRN PRN PRN Reason: Constipation Stop: 05/23/18 22:40 - Procedures Procedures: Procedures Procedure Code Date RESPIRATORY VENTILATION, GREATER THAN 96 CONSECUTIVE HOURS [id number] 03/24/18 Nutritional Asmnt/Malnutr-PDOC - Dietary Evaluation Malnutrition Findings (Please click <Entered> for more info): Nutritional Asmnt/Malnutrition Start: 03/25/18 13: 56 Text: Status: Complete Freq: Protocol: Document 03/25/18 14:40 LCHENG (Rec: 03/25/18 14:51 LCHENG [email or web address]) Nutritional Asmnt/Malnutrition Patient General Information Nutritional Screening High Risk Diagnosis urosepsis, fever Pertinent Medical Hx/Surgical Hx HTN, asthma/COPD, PEG/Gtube Subjective Information Pt seen resting in bed, on trach. TF was running at 70ml/ hr at this time. Current Diet Order/ Nutrition Support glucerna 1.2 70ml x 20hr Pertinent Medications vit C, colace, iron, novolog, levemir, miralax, D5-0.45ns w 20meq kcl, senna Pertinent Labs 03/25 K 3.1, Cl 13, Cr 0.5, glucose 223., POC 145-222 03/24 Na 146, cl 112, BUN 28, glucose 161 Nutritional Hx/Data Height 1.47 m Height (Calculated Centimeters) 147.3 Current Weight (lbs) 40.823 kg Weight (Calculated Kilograms) 40.8 Weight (Calculated Grams) 35445.3 [place] Body Weight 96 Body Mass Index (BMI) 18.8 Weight Status Approriate GI Symptoms GI Symptoms None Last BM 03/25 Difficult in: None Usual diet at home diabetisource 70ml x 20hr daily at care facility per chart Skin Integrity/Comment: intact jason 13 Estimated Nutritional Goals BEE in Kcals: Using Current wt Calories/Kcals/Kg 30-35 Kcals Calculated 5241-2054 Protein: Using Current wt Protein g/k.2-1.4 Protein Calculated 49-57 Fluid: ml 1230-1435ml (1ml/kcal) Nutritional Problem 2. Problem Problem increased nutrition needs Etiology increased metabolic demand Signs/Symptoms: dx of urosepsis, fever 1. Problem Problem altered nutrition related labs Etiology possible endocrine dysfunction , electrolytes imbalance Signs/Symptoms: glucose 161-165, POC 145-222, K 3.1 Intervention/Recommendation Comments 1. Continue with current TF regimen. It provides 1680kcal, 84g protein, 1127ml free water, meeting 100% of nutritional needs 2. MD to adjust insulin regimen for optimal glycemic control 3. Monitor TF rate, tolerance, wt, skin integrity and labs 4. F/U as high risk in 2-3 days, 03/27-03/28 Expected Outcomes/Goals Expected Outcomes/Goals 1. Pt to meet at least 75% of nutritional needs via nutrition support with tolerance 2. Wt stability, skin to remain intact, labs to approach WNL.
--- NOTE | 2018-04-01 20:28 | Internal Medicine Prog Note ---
Internal Medicine Subjective - Subjective Service Date: 04/01/18 Patient is:: awake, non-verbal, in bed, confused Per staff patient has:: no adverse event Internal Medicine Objective - Results Result Diagrams: 04/01/18 04:30 03/30/18 04:05 Recent Labs: Laboratory Last Values WBC 7.3 Th/cmm (4.8-10.8) 04/01/18 04:30 RBC 2.79 Mil/cmm (3.80-5.10) L 04/01/18 04:30 Hgb 9.1 gm/dL (12-16) L 04/01/18 04:30 Hct 27.1 % (41.0-60) L 04/01/18 04:30 MCV 97.1 fl (81-100) 04/01/18 04:30 MCH 32.6 pg (27.0-31.0) H 04/01/18 04:30 MCHC Differential 33.6 pg (28.0-36.0) 04/01/18 04:30 RDW 12.8 % (11.5-20.0) 04/01/18 04:30 Plt Count 210 Th/cmm (150-400) 04/01/18 04:30 MPV 9.9 fl 04/01/18 04:30 Neutrophils % 57.0 % (40.0-80.0) 04/01/18 04:30 Lymphocytes % 22.6 % (20.0-50.0) 04/01/18 04:30 Monocytes % 12.8 % (2.0-10.0) H 04/01/18 04:30 Eosinophils % 6.6 % (0.0-5.0) H 04/01/18 04:30 Basophils % 1.0 % (0.0-2.0) 04/01/18 04:30 Neutrophils (Manual) Not Reportable 03/28/18 04:35 PT 10.3 SECONDS (9.5-11.5) 03/24/18 20:10 INR 0.99 (0.5-1.4) 03/24/18 20:10 PTT (Actin FS) 24.1 SECONDS (26.0-38.0) L 03/24/18 20:10 Sodium 143 mEq/L (136-145) 03/30/18 04:05 Potassium 3.8 mEq/L (3.5-5.1) 03/30/18 04:05 Chloride 110 mEq/L (98-107) H 03/30/18 04:05 Carbon Dioxide 24.0 mEq/L (21.0-31.0) 03/30/18 04:05 Anion Gap 12.8 (7.0-16.0) 03/30/18 04:05 BUN 14 mg/dL (7-25) 03/30/18 04:05 Creatinine 0.5 mg/dL (0.6-1.2) L 03/30/18 04:05 Est GFR ( Amer) > 60.0 ml/min (>90) 03/30/18 04:05 Est GFR (Non-Af Amer) > 60.0 ml/min 03/30/18 04:05 BUN/Creatinine Ratio 28.0 03/30/18 04:05 Glucose 105 mg/dL (70-105) 03/30/18 04:05 POC Glucose 160 MG/DL (70 - 105) H 04/01/18 17:07 Hemoglobin A1c % 6.2 % (4.0-6.0) H 03/25/18 04:30 Whole Bld Lactic Acid 1.09 mmol/L (0.60-1.99) 03/24/18 20:10 Calcium 10.1 mg/dL (8.6-10.3) 03/30/18 04:05 Magnesium 2.0 mg/dL (1.9-2.7) 03/26/18 04:35 Total Bilirubin 0.3 mg/dL (0.3-1.0) 03/29/18 04:20 AST 22 U/L (13-39) 03/29/18 04:20 ALT 22 U/L (7-52) 03/29/18 04:20 Alkaline Phosphatase 157 U/L (34-104) H 03/29/18 04:20 Creatine Kinase 87 U/L (30-223) 03/24/18 20:10 Troponin I 0.01 ng/mL (0.01-0.05) 03/24/18 20:10 Total Protein 7.3 gm/dL (6.0-8.3) 03/29/18 04:20 Albumin 3.9 gm/dL (3.7-5.3) 03/29/18 04:20 Globulin 3.4 gm/dL 03/29/18 04:20 Albumin/Globulin Ratio 1.2 (1.0-1.8) 03/29/18 04:20 Serum , Qual NEGATIVE (NEGATIVE) 03/24/18 20:10 Urine Source MIDSTREAM 03/24/18 20:30 Urine Color YELLOW 03/24/18 20:30 Urine Clarity CLEAR (CLEAR) 03/24/18 20:30 Urine pH 7.0 (4.6 - 8.0) 03/24/18 20:30 Ur Specific [place] 1.010 (1.005-1.030) 03/24/18 20:30 Urine Protein TRACE mg/dL (NEGATIVE) 03/24/18 20:30 Urine Glucose (UA) NEGATIVE mg/dL (NEGATIVE) 03/24/18 20:30 Urine Ketones NEGATIVE mg/dL (NEGATIVE) 03/24/18 20:30 Urine Blood NEGATIVE (NEGATIVE) 03/24/18 20:30 Urine Nitrate NEGATIVE (NEGATIVE) 03/24/18 20:30 Urine Bilirubin NEGATIVE (NEGATIVE) 03/24/18 20:30 Urine Urobilinogen 1.0 E.U./dL (0.2 - 1.0) 03/24/18 20:30 Ur Leukocyte Esterase NEGATIVE (NEGATIVE) 03/24/18 20:30 Urine RBC 0-2 /hpf (0-5) 03/24/18 20:30 Urine WBC 2-5 /hpf (0-5) 03/24/18 20:30 Ur Epithelial Cells MODERATE /lpf (FEW) 03/24/18 20:30 Urine Bacteria 1+ /hpf (NONE SEEN) H 03/24/18 20:30 Coarse Granular Casts 0-2 /lpf (NONE SEEN) H 03/24/18 20:30 Vancomycin Trough 21.4 ug/mL (5-10) H 03/31/18 08:00 - Physical Exam Vitals and I&O: Vital Signs Temp 99.2 F 04/01/18 16:00 Pulse 90 04/01/18 18:31 Resp 14 04/01/18 17:52 BP 107/64 04/01/18 17:52 Pulse Ox 100 04/01/18 18:31 Intake & Output 04/01/18 04/01/18 04/02/18 06:59 18:59 06:59 Intake Total 1345 810 Balance 1345 810 Weight (lbs) 40.37 kg 40.37 kg Intake: Intake, IV Amount 400 100 Piperacillin Sodium/ 300 100 Tazobact 4.5 gm In Sodium Chloride 0.9% 100 ml @ 100 mls/hr IV Q6HR [facility] Rx #:[id number] Vancomycin HCl 500 mg In 100 Sodium Chloride 0.9% 100 ml @ 100 mls/hr IV Q12H [facility] Rx#:[id number] Tube Feeding 515 560 Other 430 150 Other: # Voids 2 4 # Bowel Movements 1 2 Stool Characteristics Liquid Liquid Brown Brown Green Green Weight Source Bedscale Bedscale Active Medications: Current Medications Acetaminophen (Tylenol) 650 mg GT Q6HR PRN PRN Reason: Pain or Fever >101 Stop: 05/23/18 22:40 Last Admin: 03/31/18 17:17 Dose: 650 mg Albuterol/Ipratropium (Duoneb Neb) 3 ml HHN Q6HRT [facility] Stop: 05/24/18 00:59 Last Admin: 04/01/18 18:31 Dose: 3 ml Amantadine HCl (Symmetrel) 100 mg GT Q12HR [facility] Stop: 05/24/18 00:44 Last Admin: 04/01/18 08:33 Dose: 100 mg Amlodipine Besylate (Norvasc) 10 mg GT DAILY [facility] Stop: 05/24/18 08:59 Last Admin: 04/01/18 08:32 Dose: 10 mg Ascorbic Acid (Vitamin C) 500 mg GT BID [facility] Stop: 05/24/18 08:59 Last Admin: 04/01/18 16:33 Dose: 500 mg Chlorhexidine Gluconate (Peridex) 15 ml MM 08,1999 [facility] Stop: 05/28/18 19:59 Last Admin: 04/01/18 08:38 Dose: 15 ml Diltiazem HCl (Cardizem) 30 mg GT BID [facility] Stop: 05/24/18 08:59 Last Admin: 04/01/18 16:34 Dose: 30 mg Diphenhydramine HCl (Benadryl) 12.5 mg GT Q6H PRN PRN Reason: Itching Stop: 05/23/18 22:40 Last Admin: 03/26/18 21:12 Dose: 12.5 mg Docusate Sodium (Colace) 100 mg PO BID [facility] Stop: 05/24/18 08:59 Last Admin: 04/01/18 16:34 Dose: 100 mg Famotidine (Pepcid) 20 mg GT DAILY [facility] Stop: 05/24/18 08:59 Last Admin: 04/01/18 08:34 Dose: 20 mg Ferrous Sulfate (Iron) 330 mg GT QDAC [facility] Stop: 05/24/18 07:29 Last Admin: 04/01/18 06:32 Dose: 330 mg Potassium Chloride/Dextrose/Sod Cl (D5-0.45ns W/20 Meq Kcl) 1,000 mls @ 40 mls/ hr IV .Q24H [facility] Stop: 05/27/18 13:44 Last Admin: 03/31/18 21:39 Dose: 40 mls/hr Piperacillin Sod/Tazobactam (Sod 4.5 gm/ Sodium Chloride) 100 mls @ 100 mls/hr IV Q6HR [facility] Stop: 05/27/18 17:59 Last Admin: 04/01/18 17:02 Dose: 100 mls/hr Vancomycin HCl 500 mg/ Sodium (Chloride) 100 mls @ 100 mls/hr IV Q12H [facility] Stop: 05/30/18 21:59 Last Admin: 04/01/18 09:12 Dose: 100 mls/hr Insulin Aspart (Novolog Insulin Sliding Scale) 0 units SUBQ Q6HR [facility]; Protocol Stop: 05/24/18 00:00 Last Admin: 04/01/18 17:14 Dose: 3 units Insulin Detemir (Levemir Insulin) 10 units SUBQ HS [facility] Stop: 05/24/18 20:59 Last Admin: 03/31/18 21:19 Dose: Not Given Lactobacillus Rhamnosus (Culturelle 15b) 1 each PO DAILY [facility] Stop: 05/30/18 13:59 Last Admin: 04/01/18 08:32 Dose: 1 each Levetiracetam (Keppra) 500 mg GT BID [facility] Stop: 05/24/18 08:59 Last Admin: 04/01/18 16:33 Dose: 500 mg Lorazepam (Ativan) 1 mg IVP Q4HR PRN; Protocol PRN Reason: Agitation Stop: 05/26/18 14:37 Last Admin: 04/01/18 09:37 Dose: 1 mg Magnesium Hydroxide (Milk Of Magnesia) 30 ml GT Q6H PRN PRN Reason: Constipation Stop: 05/23/18 22:40 Metoclopramide HCl (Reglan) 10 mg GT Q8H [facility] Stop: 05/30/18 21:29 Last Admin: 04/01/18 13:30 Dose: 10 mg Miscellaneous (Vancomycin Iv Per Pharmacy) 1 ea PRN [facility] Stop: 05/24/18 14:44 Miscellaneous (Zosyn Iv Per Pharmacy) 1 ea PRN PRN PRN Reason: PROTOCOL Stop: 05/27/18 13:39 Miscellaneous (Probiotic Screen) 1 ea PRN PRN PRN Reason: PROTOCOL Stop: 05/30/18 11:33 Morphine Sulfate (Morphine) 4 mg IVP Q6H PRN PRN Reason: Pain (Severe) Stop: 05/26/18 17:10 Last Admin: 04/01/18 16:57 Dose: 4 mg Ondansetron HCl (Zofran) 4 mg IV Q4H PRN PRN Reason: Nausea / Vomiting Stop: 05/23/18 22:44 Polyethylene Glycol (Miralax) 17 gm GT Q12H [facility] Stop: 05/23/18 22:44 Last Admin: 04/01/18 11:40 Dose: 17 gm Potassium Chloride (Potassium Chloride Elixir) 40 meq GT BID [facility] Stop: 05/24/18 08:59 Last Admin: 04/01/18 16:33 Dose: 40 meq Senna (Senna) 8.6 mg GT HS [facility] Stop: 05/28/18 20:59 Last Admin: 03/31/18 20:41 Dose: 8.6 mg Simvastatin (Zocor) 10 mg GT [facility] Stop: 05/24/18 20:59 Last Admin: 03/31/18 20:42 Dose: 10 mg Sodium Phosphate (Fleet Enema) 135 ml RC PRN PRN PRN Reason: Constipation Stop: 05/23/18 22:40 General: demented HEENT: NC/AT, PERRLA, EOMI, anicteric sclerae, throat clear Neck: Supple, No JVD, No thyromegaly, +2 carotid pulse wo bruit, No LAD Cardiovascular: Normal S1, Normal S2, without murmur Abdomen: soft, non-tender, non-distended Extremities: clear Neurological: no change - Procedures Procedures: Procedures Procedure Code Date RESPIRATORY VENTILATION, GREATER THAN 96 CONSECUTIVE HOURS [id number] 03/24/18 Internal Medicine Assmt/Plan - Assessment Assessment: 1.UTI. 2.SEPSIS. 3.RESPIRATORY FAILURE. 4.SAH. 5.DM. 6.ANEMIA. - Plan Plan: CONTINUE ON CURRENT MEDICATION AND DIET. Nutritional Asmnt/Malnutr-PDOC - Dietary Evaluation Malnutrition Findings (Please click <Entered> for more info): Nutritional Asmnt/Malnutrition Start: 03/25/18 13: 56 Text: Status: Complete Freq: Protocol: Document 03/25/18 14:40 LCTYSONG (Rec: 03/25/18 14:51 LCTYSONG [email or web address]) Nutritional Asmnt/Malnutrition Patient General Information Nutritional Screening High Risk Diagnosis urosepsis, fever Pertinent Medical Hx/Surgical Hx HTN, asthma/COPD, PEG/Gtube Subjective Information Pt seen resting in bed, on trach. TF was running at 70ml/ hr at this time. Current Diet Order/ Nutrition Support glucerna 1.2 70ml x 20hr Pertinent Medications vit C, colace, iron, novolog, levemir, miralax, D5-0.45ns w 20meq kcl, senna Pertinent Labs 03/25 K 3.1, Cl 13, Cr 0.5, glucose 223., POC 145-222 03/24 Na 146, cl 112, BUN 28, glucose 161 Nutritional Hx/Data Height 1.47 m Height (Calculated Centimeters) 147.3 Current Weight (lbs) 40.823 kg Weight (Calculated Kilograms) 40.8 Weight (Calculated Grams) 34149.3 [place] Body Weight 96 Body Mass Index (BMI) 18.8 Weight Status Approriate GI Symptoms GI Symptoms None Last BM 03/25 Difficult in: None Usual diet at home diabetisource 70ml x 20hr daily at care facility per chart Skin Integrity/Comment: intact jason 13 Estimated Nutritional Goals BEE in Kcals: Using Current wt Calories/Kcals/Kg 30-35 Kcals Calculated 0733-6843 Protein: Using Current wt Protein g/k.2-1.4 Protein Calculated 49-57 Fluid: ml 1230-1435ml (1ml/kcal) Nutritional Problem 2. Problem Problem increased nutrition needs Etiology increased metabolic demand Signs/Symptoms: dx of urosepsis, fever 1. Problem Problem altered nutrition related labs Etiology possible endocrine dysfunction , electrolytes imbalance Signs/Symptoms: glucose 161-165, POC 145-222, K 3.1 Intervention/Recommendation Comments 1. Continue with current TF regimen. It provides 1680kcal, 84g protein, 1127ml free water, meeting 100% of nutritional needs 2. MD to adjust insulin regimen for optimal glycemic control 3. Monitor TF rate, tolerance, wt, skin integrity and labs 4. F/U as high risk in 2-3 days, 03/27-03/28 Expected Outcomes/Goals Expected Outcomes/Goals 1. Pt to meet at least 75% of nutritional needs via nutrition support with tolerance 2. Wt stability, skin to remain intact, labs to approach WNL.
[2018-04-01] MEDS: Insulin Detemir 100 units/mL 10mL Vial SUBQ SCH (21:28)
[2018-04-02] MEDS ORDERED: Hydrocodone/APAP 5mg/325mg Tab PO PRN
[2018-04-02] MEDS: INSULIN ASPART SLIDING SCALE 100 UNITS/ML UNIT SUBQ SCH ×4 (00:40→17:34)
[2018-04-02] MEDS: Hydrocodone/APAP 5mg/325mg Tab PO SCH ×4 (00:42→17:05)
[2018-04-02] MEDS: Albuterol/Ipratropium Neb 3 ML AERS HHN SCH ×4 (01:21→19:19)
[2018-04-02] MEDS: D5-0.45NS w/20 mEq KCL 1,000 ML IV SCH (06:14)
[2018-04-02] MEDS: Ferrous Sulfate 300 MG/5 ML UDC GT SCH (06:31)
[2018-04-02] MEDS: Chlorhexidine Gluconate 0.12% 15mL Mouthwash MM SCH ×2 (08:00→21:57)
[2018-04-02] MEDS: Multivitamin w/ Minerals Tab GT SCH (08:44)
[2018-04-02] MEDS: Lactobacillus Rhamnosus GG 15 Billion CFU CAP.SPRINK PO SCH (08:45)
[2018-04-02] MEDS: Diltiazem 30 mg Tab GT SCH ×2 (08:45→17:00)
[2018-04-02] MEDS: Levetiracetam 500 mg/5mL 5mL UDSyr *for ORAL USE ONLY GT SCH ×2 (08:46→17:01)
[2018-04-02] MEDS: Potassium Chloride Elixir 20 mEq /15 mL UDC GT SCH ×2 (08:46→17:01)
[2018-04-02] MEDS: POLYETHYLENE GLYCOL 3350 17 GM PACK GT SCH ×2 (11:49→22:05)
[2018-04-02] MEDS: Vancomycin HCl 500 MG in Sodium Chloride 0.9% 100 ML IV SCH ×2 (12:00→21:57)
--- NOTE | 2018-04-02 18:03 | Infectious Disease Prog Note ---
Infectious Disease Subjective - Review of Systems Service Date: 04/02/18 Subjective: cc pseudomonas pn hpi0 d/w staff on bronchodilator for resp failure schedule for discharge ros no efvr o/e vss chaest vesicular ytrach sis2 absd soft] ext atrophy muscle dx pn vanco zosyn x 7 days Infectious Disease Objective - Results Result Diagrams: 04/01/18 04:30 03/30/18 04:05 Recent Labs: Laboratory Last Values WBC 7.3 Th/cmm (4.8-10.8) 04/01/18 04:30 RBC 2.79 Mil/cmm (3.80-5.10) L 04/01/18 04:30 Hgb 9.1 gm/dL (12-16) L 04/01/18 04:30 Hct 27.1 % (41.0-60) L 04/01/18 04:30 MCV 97.1 fl (81-100) 04/01/18 04:30 MCH 32.6 pg (27.0-31.0) H 04/01/18 04:30 MCHC Differential 33.6 pg (28.0-36.0) 04/01/18 04:30 RDW 12.8 % (11.5-20.0) 04/01/18 04:30 Plt Count 210 Th/cmm (150-400) 04/01/18 04:30 MPV 9.9 fl 04/01/18 04:30 Neutrophils % 57.0 % (40.0-80.0) 04/01/18 04:30 Lymphocytes % 22.6 % (20.0-50.0) 04/01/18 04:30 Monocytes % 12.8 % (2.0-10.0) H 04/01/18 04:30 Eosinophils % 6.6 % (0.0-5.0) H 04/01/18 04:30 Basophils % 1.0 % (0.0-2.0) 04/01/18 04:30 Neutrophils (Manual) Not Reportable 03/28/18 04:35 PT 10.3 SECONDS (9.5-11.5) 03/24/18 20:10 INR 0.99 (0.5-1.4) 03/24/18 20:10 PTT (Actin FS) 24.1 SECONDS (26.0-38.0) L 03/24/18 20:10 Sodium 143 mEq/L (136-145) 03/30/18 04:05 Potassium 3.8 mEq/L (3.5-5.1) 03/30/18 04:05 Chloride 110 mEq/L (98-107) H 03/30/18 04:05 Carbon Dioxide 24.0 mEq/L (21.0-31.0) 03/30/18 04:05 Anion Gap 12.8 (7.0-16.0) 03/30/18 04:05 BUN 14 mg/dL (7-25) 03/30/18 04:05 Creatinine 0.5 mg/dL (0.6-1.2) L 03/30/18 04:05 Est GFR ( Amer) > 60.0 ml/min (>90) 03/30/18 04:05 Est GFR (Non-Af Amer) > 60.0 ml/min 03/30/18 04:05 BUN/Creatinine Ratio 28.0 03/30/18 04:05 Glucose 105 mg/dL (70-105) 03/30/18 04:05 POC Glucose 156 MG/DL (70 - 105) H 04/02/18 17:28 Hemoglobin A1c % 6.2 % (4.0-6.0) H 03/25/18 04:30 Whole Bld Lactic Acid 1.09 mmol/L (0.60-1.99) 03/24/18 20:10 Calcium 10.1 mg/dL (8.6-10.3) 03/30/18 04:05 Magnesium 2.0 mg/dL (1.9-2.7) 03/26/18 04:35 Total Bilirubin 0.3 mg/dL (0.3-1.0) 03/29/18 04:20 AST 22 U/L (13-39) 03/29/18 04:20 ALT 22 U/L (7-52) 03/29/18 04:20 Alkaline Phosphatase 157 U/L (34-104) H 03/29/18 04:20 Creatine Kinase 87 U/L (30-223) 03/24/18 20:10 Troponin I 0.01 ng/mL (0.01-0.05) 03/24/18 20:10 Total Protein 7.3 gm/dL (6.0-8.3) 03/29/18 04:20 Albumin 3.9 gm/dL (3.7-5.3) 03/29/18 04:20 Globulin 3.4 gm/dL 03/29/18 04:20 Albumin/Globulin Ratio 1.2 (1.0-1.8) 03/29/18 04:20 Serum , Qual NEGATIVE (NEGATIVE) 03/24/18 20:10 Urine Source MIDSTREAM 03/24/18 20:30 Urine Color YELLOW 03/24/18 20:30 Urine Clarity CLEAR (CLEAR) 03/24/18 20:30 Urine pH 7.0 (4.6 - 8.0) 03/24/18 20:30 Ur Specific [place] 1.010 (1.005-1.030) 03/24/18 20:30 Urine Protein TRACE mg/dL (NEGATIVE) 03/24/18 20:30 Urine Glucose (UA) NEGATIVE mg/dL (NEGATIVE) 03/24/18 20:30 Urine Ketones NEGATIVE mg/dL (NEGATIVE) 03/24/18 20:30 Urine Blood NEGATIVE (NEGATIVE) 03/24/18 20:30 Urine Nitrate NEGATIVE (NEGATIVE) 03/24/18 20:30 Urine Bilirubin NEGATIVE (NEGATIVE) 03/24/18 20:30 Urine Urobilinogen 1.0 E.U./dL (0.2 - 1.0) 03/24/18 20:30 Ur Leukocyte Esterase NEGATIVE (NEGATIVE) 03/24/18 20:30 Urine RBC 0-2 /hpf (0-5) 03/24/18 20:30 Urine WBC 2-5 /hpf (0-5) 03/24/18 20:30 Ur Epithelial Cells MODERATE /lpf (FEW) 03/24/18 20:30 Urine Bacteria 1+ /hpf (NONE SEEN) H 03/24/18 20:30 Coarse Granular Casts 0-2 /lpf (NONE SEEN) H 03/24/18 20:30 Vancomycin Trough 15.3 ug/mL (5-10) H 04/02/18 08:55 - Physical Exam Vitals and I&O: Vital Signs Temp 99.8 F 04/02/18 16:00 Pulse 122 04/02/18 17:00 Resp 13 04/02/18 17:00 BP 128/78 04/02/18 17:00 Pulse Ox 100 09/07/18 17:00 Intake & Output 04/01/18 04/02/18 04/02/18 18:59 06:59 18:59 Intake Total 910 1200 1316 Balance 910 1200 1316 Weight (lbs) 40.37 kg 47.174 kg Intake: Intake, IV Amount 200 1200 300 D5-0.45NS w/20 mEq KCL 1, 1000 000 ml @ 40 mls/hr IV . Q24H [facility] Rx#:[id number] Piperacillin Sodium/ 200 100 200 Tazobact 4.5 gm In Sodium Chloride 0.9% 100 ml @ 100 mls/hr IV Q6HR [facility] Rx #:[id number] Vancomycin HCl 500 mg In 100 100 Sodium Chloride 0.9% 100 ml @ 100 mls/hr IV Q12H [facility] Rx#:[id number] Tube Feeding 560 556 Other 150 460 Other: # Voids 4 2 # Bowel Movements 2 1 Stool Characteristics Liquid Liquid Liquid Brown Brown Brown Green Weight Source Bedscale Bedscale Active Medications: Current Medications Acetaminophen (Tylenol) 650 mg GT Q6HR PRN PRN Reason: Pain or Fever >101 Stop: 05/23/18 22:40 Last Admin: 03/31/18 17:17 Dose: 650 mg Acetaminophen/Hydrocodone Bitart ([place] 5mg/325mg) 1 tab PO Q6H [facility] Stop: 06/01/18 00:00 Last Admin: 04/02/18 17:05 Dose: 1 tab Albuterol/Ipratropium (Duoneb Neb) 3 ml HHN Q6HRT [facility] Stop: 05/24/18 00:59 Last Admin: 04/02/18 13:13 Dose: 3 ml Amantadine HCl (Symmetrel) 100 mg GT Q12HR [facility] Stop: 05/24/18 00:44 Last Admin: 04/02/18 09:00 Dose: 100 mg Amlodipine Besylate (Norvasc) 10 mg GT DAILY [facility] Stop: 05/24/18 08:59 Last Admin: 04/02/18 08:44 Dose: 10 mg Ascorbic Acid (Vitamin C) 500 mg GT BID [facility] Stop: 05/24/18 08:59 Last Admin: 04/02/18 17:00 Dose: 500 mg Chlorhexidine Gluconate (Peridex) 15 ml MM 799,1999 [facility] Stop: 05/28/18 19:59 Last Admin: 04/02/18 08:00 Dose: 15 ml Diltiazem HCl (Cardizem) 30 mg GT BID [facility] Stop: 05/24/18 08:59 Last Admin: 04/02/18 17:00 Dose: 30 mg Diphenhydramine HCl (Benadryl) 12.5 mg GT Q6H PRN PRN Reason: Itching Stop: 05/23/18 22:40 Last Admin: 03/26/18 21:12 Dose: 12.5 mg Docusate Sodium (Colace) 100 mg PO BID [facility] Stop: 05/24/18 08:59 Last Admin: 04/02/18 17:30 Dose: Not Given Famotidine (Pepcid) 20 mg GT DAILY [facility] Stop: 05/24/18 08:59 Last Admin: 04/02/18 08:45 Dose: 20 mg Ferrous Sulfate (Iron) 330 mg GT QDAC [facility] Stop: 05/24/18 07:29 Last Admin: 04/02/18 06:31 Dose: 330 mg Heparin Sodium (Porcine) (Heparin) 5,000 units SUBQ Q12HR [facility] Stop: 05/31/18 20:59 Last Admin: 04/02/18 08:47 Dose: 5,000 units Potassium Chloride/Dextrose/Sod Cl (D5-0.45ns W/20 Meq Kcl) 1,000 mls @ 40 mls/ hr IV .Q24H [facility] Stop: 05/27/18 13:44 Last Admin: 04/02/18 06:14 Dose: 40 mls/hr Piperacillin Sod/Tazobactam (Sod 4.5 gm/ Sodium Chloride) 100 mls @ 100 mls/hr IV Q6HR [facility] Stop: 05/27/18 17:59 Last Admin: 04/02/18 17:05 Dose: 100 mls/hr Vancomycin HCl 500 mg/ Sodium (Chloride) 100 mls @ 100 mls/hr IV Q12H [facility] Stop: 05/30/18 21:59 Last Infusion: 04/02/18 16:03 Dose: Infused Insulin Aspart (Novolog Insulin Sliding Scale) 0 units SUBQ Q6HR [facility]; Protocol Stop: 05/24/18 00:00 Last Admin: 04/02/18 17:34 Dose: 3 units Insulin Detemir (Levemir Insulin) 10 units SUBQ HS [facility] Stop: 05/24/18 20:59 Last Admin: 04/01/18 21:28 Dose: Not Given Lactobacillus Rhamnosus (Culturelle 15b) 1 each PO DAILY [facility] Stop: 05/30/18 13:59 Last Admin: 04/02/18 08:45 Dose: 1 each Levetiracetam (Keppra) 500 mg GT BID [facility] Stop: 05/24/18 08:59 Last Admin: 04/02/18 17:01 Dose: 500 mg Lorazepam (Ativan) 1 mg IVP Q4HR PRN; Protocol PRN Reason: Agitation Stop: 05/26/18 14:37 Last Admin: 04/02/18 13:36 Dose: 1 mg Magnesium Hydroxide (Milk Of Magnesia) 30 ml GT Q6H PRN PRN Reason: Constipation Stop: 05/23/18 22:40 Metoclopramide HCl (Reglan) 10 mg GT Q8H [facility] Stop: 05/30/18 21:29 Last Admin: 04/02/18 10:00 Dose: 10 mg Miscellaneous (Vancomycin Iv Per Pharmacy) 1 ea MC PRN [facility] Stop: 05/24/18 14:44 Miscellaneous (Zosyn Iv Per Pharmacy) 1 ea PRN PRN PRN Reason: PROTOCOL Stop: 05/27/18 13:39 Miscellaneous (Probiotic Screen) 1 [facility] PRN PRN PRN Reason: PROTOCOL Stop: 05/30/18 11:33 Morphine Sulfate (Morphine) 4 mg IVP Q6H PRN PRN Reason: Pain (Severe) Stop: 05/26/18 17:10 Last Admin: 04/01/18 22:23 Dose: 4 mg Ondansetron HCl (Zofran) 4 mg IV Q4H PRN PRN Reason: Nausea / Vomiting Stop: 05/23/18 22:44 Polyethylene Glycol (Miralax) 17 gm GT Q12H [facility] Stop: 05/23/18 22:44 Last Admin: 04/02/18 11:49 Dose: Not Given Potassium Chloride (Potassium Chloride Elixir) 40 meq GT BID [facility] Stop: 05/24/18 08:59 Last Admin: 04/02/18 17:01 Dose: 40 meq Senna (Senna) 8.6 mg GT HS [facility] Stop: 05/28/18 20:59 Last Admin: 04/01/18 21:29 Dose: 8.6 mg Simvastatin (Zocor) 10 mg GT HS [facility] Stop: 05/24/18 20:59 Last Admin: 04/01/18 21:30 Dose: 10 mg Sodium Phosphate (Fleet Enema) 135 ml RC PRN PRN PRN Reason: Constipation Stop: 05/23/18 22:40 - Procedures Procedures: Procedures Procedure Code Date RESPIRATORY VENTILATION, GREATER THAN 96 CONSECUTIVE HOURS [id number] 03/24/18 Nutritional Asmnt/Malnutr-PDOC - Dietary Evaluation Malnutrition Findings (Please click <Entered> for more info): Nutritional Asmnt/Malnutrition Start: 03/25/18 13: 56 Text: Status: Complete Freq: Protocol: Document 03/25/18 14:40 QAMAR (Rec: 03/25/18 14:51 QAMAR LUDIVINA-FN) Nutritional Asmnt/Malnutrition Patient General Information Nutritional Screening High Risk Diagnosis urosepsis, fever Pertinent Medical Hx/Surgical Hx HTN, asthma/COPD, PEG/Gtube Subjective Information Pt seen resting in bed, on trach. TF was running at 70ml/ hr at this time. Current Diet Order/ Nutrition Support glucerna 1.2 70ml x 20hr Pertinent Medications vit C, colace, iron, novolog, levemir, miralax, D5-0.45ns w 20meq kcl, senna Pertinent Labs 03/25 K 3.1, Cl 13, Cr 0.5, glucose 223., POC 145-222 03/24 Na 146, cl 112, BUN 28, glucose 161 Nutritional Hx/Data Height 1.47 m Height (Calculated Centimeters) 147.3 Current Weight (lbs) 40.823 kg Weight (Calculated Kilograms) 40.8 Weight (Calculated Grams) 04540.3 [place] Body Weight 96 Body Mass Index (BMI) 18.8 Weight Status Approriate GI Symptoms GI Symptoms None Last BM 03/25 Difficult in: None Usual diet at home diabetisource 70ml x 20hr daily at care facility per chart Skin Integrity/Comment: intact jason [place] Estimated Nutritional Goals BEE in Kcals: Using Current wt Calories/Kcals/Kg 30-35 Kcals Calculated 4060-2943 Protein: Using Current wt Protein g/k.2-1.4 Protein Calculated 49-57 Fluid: ml 1230-1435ml (1ml/kcal) Nutritional Problem 2. Problem Problem increased nutrition needs Etiology increased metabolic demand Signs/Symptoms: dx of urosepsis, fever 1. Problem Problem altered nutrition related labs Etiology possible endocrine dysfunction , electrolytes imbalance Signs/Symptoms: glucose 161-165, POC 145-222, K 3.1 Intervention/Recommendation Comments 1. Continue with current TF regimen. It provides 1680kcal, 84g protein, 1127ml free water, meeting 100% of nutritional needs 2. MD to adjust insulin regimen for optimal glycemic control 3. Monitor TF rate, tolerance, wt, skin integrity and labs 4. F/U as high risk in 2-3 days, 03/27-03/28 Expected Outcomes/Goals Expected Outcomes/Goals 1. Pt to meet at least 75% of nutritional needs via nutrition support with tolerance 2. Wt stability, skin to remain intact, labs to approach WNL.
--- NOTE | 2018-04-02 20:37 | Internal Medicine Prog Note ---
Internal Medicine Subjective - Subjective Service Date: 04/02/18 Patient seen and examined:: with staff (SHE HAS BEEN AFEBRIL) Patient is:: awake, non-verbal, in bed, confused Per staff patient has:: no adverse event Internal Medicine Objective - Results Result Diagrams: 04/01/18 04:30 03/30/18 04:05 Recent Labs: Laboratory Last Values WBC 7.3 Th/cmm (4.8-10.8) 04/01/18 04:30 RBC 2.79 Mil/cmm (3.80-5.10) L 04/01/18 04:30 Hgb 9.1 gm/dL (12-16) L 04/01/18 04:30 Hct 27.1 % (41.0-60) L 04/01/18 04:30 MCV 97.1 fl (81-100) 04/01/18 04:30 MCH 32.6 pg (27.0-31.0) H 04/01/18 04:30 MCHC Differential 33.6 pg (28.0-36.0) 04/01/18 04:30 RDW 12.8 % (11.5-20.0) 04/01/18 04:30 Plt Count 210 Th/cmm (150-400) 04/01/18 04:30 MPV 9.9 fl 04/01/18 04:30 Neutrophils % 57.0 % (40.0-80.0) 04/01/18 04:30 Lymphocytes % 22.6 % (20.0-50.0) 04/01/18 04:30 Monocytes % 12.8 % (2.0-10.0) H 04/01/18 04:30 Eosinophils % 6.6 % (0.0-5.0) H 04/01/18 04:30 Basophils % 1.0 % (0.0-2.0) 04/01/18 04:30 Neutrophils (Manual) Not Reportable 03/28/18 04:35 PT 10.3 SECONDS (9.5-11.5) 03/24/18 20:10 INR 0.99 (0.5-1.4) 03/24/18 20:10 PTT (Actin FS) 24.1 SECONDS (26.0-38.0) L 03/24/18 20:10 Sodium 143 mEq/L (136-145) 03/30/18 04:05 Potassium 3.8 mEq/L (3.5-5.1) 03/30/18 04:05 Chloride 110 mEq/L (98-107) H 03/30/18 04:05 Carbon Dioxide 24.0 mEq/L (21.0-31.0) 03/30/18 04:05 Anion Gap 12.8 (7.0-16.0) 03/30/18 04:05 BUN 14 mg/dL (7-25) 03/30/18 04:05 Creatinine 0.5 mg/dL (0.6-1.2) L 03/30/18 04:05 Est GFR ( Amer) > 60.0 ml/min (>90) 03/30/18 04:05 Est GFR (Non-Af Amer) > 60.0 ml/min 03/30/18 04:05 BUN/Creatinine Ratio 28.0 03/30/18 04:05 Glucose 105 mg/dL (70-105) 03/30/18 04:05 POC Glucose 156 MG/DL (70 - 105) H 04/02/18 17:28 Hemoglobin A1c % 6.2 % (4.0-6.0) H 03/25/18 04:30 Whole Bld Lactic Acid 1.09 mmol/L (0.60-1.99) 03/24/18 20:10 Calcium 10.1 mg/dL (8.6-10.3) 03/30/18 04:05 Magnesium 2.0 mg/dL (1.9-2.7) 03/26/18 04:35 Total Bilirubin 0.3 mg/dL (0.3-1.0) 03/29/18 04:20 AST 22 U/L (13-39) 03/29/18 04:20 ALT 22 U/L (7-52) 03/29/18 04:20 Alkaline Phosphatase 157 U/L (34-104) H 03/29/18 04:20 Creatine Kinase 87 U/L (30-223) 03/24/18 20:10 Troponin I 0.01 ng/mL (0.01-0.05) 03/24/18 20:10 Total Protein 7.3 gm/dL (6.0-8.3) 03/29/18 04:20 Albumin 3.9 gm/dL (3.7-5.3) 03/29/18 04:20 Globulin 3.4 gm/dL 03/29/18 04:20 Albumin/Globulin Ratio 1.2 (1.0-1.8) 03/29/18 04:20 Serum , Qual NEGATIVE (NEGATIVE) 03/24/18 20:10 Urine Source MIDSTREAM 03/24/18 20:30 Urine Color YELLOW 03/24/18 20:30 Urine Clarity CLEAR (CLEAR) 03/24/18 20:30 Urine pH 7.0 (4.6 - 8.0) 03/24/18 20:30 Ur Specific [place] 1.010 (1.005-1.030) 03/24/18 20:30 Urine Protein TRACE mg/dL (NEGATIVE) 03/24/18 20:30 Urine Glucose (UA) NEGATIVE mg/dL (NEGATIVE) 03/24/18 20:30 Urine Ketones NEGATIVE mg/dL (NEGATIVE) 03/24/18 20:30 Urine Blood NEGATIVE (NEGATIVE) 03/24/18 20:30 Urine Nitrate NEGATIVE (NEGATIVE) 03/24/18 20:30 Urine Bilirubin NEGATIVE (NEGATIVE) 03/24/18 20:30 Urine Urobilinogen 1.0 E.U./dL (0.2 - 1.0) 03/24/18 20:30 Ur Leukocyte Esterase NEGATIVE (NEGATIVE) 03/24/18 20:30 Urine RBC 0-2 /hpf (0-5) 03/24/18 20:30 Urine WBC 2-5 /hpf (0-5) 03/24/18 20:30 Ur Epithelial Cells MODERATE /lpf (FEW) 03/24/18 20:30 Urine Bacteria 1+ /hpf (NONE SEEN) H 03/24/18 20:30 Coarse Granular Casts 0-2 /lpf (NONE SEEN) H 03/24/18 20:30 Vancomycin Trough 15.3 ug/mL (5-10) H 04/02/18 08:55 - Physical Exam Vitals and I&O: Vital Signs Temp 99.8 F 04/02/18 16:00 Pulse 115 04/02/18 19:21 Resp 21 04/02/18 18:00 BP 121/75 04/02/18 18:00 Pulse Ox 100 04/02/18 19:21 Intake & Output 04/02/18 04/02/18 04/03/18 06:59 18:59 06:59 Intake Total 1200 2476 100 Balance 1200 2476 100 Weight (lbs) 47.174 kg Intake: Intake, IV Amount 1200 300 100 D5-0.45NS w/20 mEq KCL 1, 1000 000 ml @ 40 mls/hr IV . Q24H [facility] Rx#:[id number] Piperacillin Sodium/ 100 200 100 Tazobact 4.5 gm In Sodium Chloride 0.9% 100 ml @ 100 mls/hr IV Q6HR [facility] Rx #:[id number] Vancomycin HCl 500 mg In 100 100 Sodium Chloride 0.9% 100 ml @ 100 mls/hr IV Q12H [facility] Rx#:[id number] Tube Feeding 1116 Other 1060 Other: # Voids 3 # Bowel Movements 2 Stool Characteristics Liquid Liquid Brown Brown Weight Source Bedscale Active Medications: Current Medications Acetaminophen (Tylenol) 650 mg GT Q6HR PRN PRN Reason: Pain or Fever >101 Stop: 05/23/18 22:40 Last Admin: 03/31/18 17:17 Dose: 650 mg Acetaminophen/Hydrocodone Bitart ([place] 5mg/325mg) 1 tab PO Q6H [facility] Stop: 06/01/18 00:00 Last Admin: 04/02/18 17:05 Dose: 1 tab Albuterol/Ipratropium (Duoneb Neb) 3 ml HHN Q6HRT [facility] Stop: 05/24/18 00:59 Last Admin: 04/02/18 19:19 Dose: 3 ml Amantadine HCl (Symmetrel) 100 mg GT Q12HR [facility] Stop: 05/24/18 00:44 Last Admin: 04/02/18 09:00 Dose: 100 mg Amlodipine Besylate (Norvasc) 10 mg GT DAILY [facility] Stop: 05/24/18 08:59 Last Admin: 04/02/18 08:44 Dose: 10 mg Ascorbic Acid (Vitamin C) 500 mg GT BID [facility] Stop: 05/24/18 08:59 Last Admin: 04/02/18 17:00 Dose: 500 mg Chlorhexidine Gluconate (Peridex) 15 ml MM 08,1999 [facility] Stop: 05/28/18 19:59 Last Admin: 04/02/18 08:00 Dose: 15 ml Diltiazem HCl (Cardizem) 30 mg GT BID [facility] Stop: 05/24/18 08:59 Last Admin: 04/02/18 17:00 Dose: 30 mg Diphenhydramine HCl (Benadryl) 12.5 mg GT Q6H PRN PRN Reason: Itching Stop: 05/23/18 22:40 Last Admin: 03/26/18 21:12 Dose: 12.5 mg Docusate Sodium (Colace) 100 mg PO BID [facility] Stop: 05/24/18 08:59 Last Admin: 04/02/18 17:30 Dose: Not Given Famotidine (Pepcid) 20 mg GT DAILY [facility] Stop: 05/24/18 08:59 Last Admin: 04/02/18 08:45 Dose: 20 mg Ferrous Sulfate (Iron) 330 mg GT QDAC [facility] Stop: 05/24/18 07:29 Last Admin: 04/02/18 06:31 Dose: 330 mg Heparin Sodium (Porcine) (Heparin) 5,000 units SUBQ Q12HR [facility] Stop: 05/31/18 20:59 Last Admin: 04/02/18 08:47 Dose: 5,000 units Potassium Chloride/Dextrose/Sod Cl (D5-0.45ns W/20 Meq Kcl) 1,000 mls @ 40 mls/ hr IV .Q24H [facility] Stop: 05/27/18 13:44 Last Admin: 04/02/18 06:14 Dose: 40 mls/hr Piperacillin Sod/Tazobactam (Sod 4.5 gm/ Sodium Chloride) 100 mls @ 100 mls/hr IV Q6HR [facility] Stop: 05/27/18 17:59 Last Infusion: 04/02/18 19:34 Dose: Infused Vancomycin HCl 500 mg/ Sodium (Chloride) 100 mls @ 100 mls/hr IV Q12H [facility] Stop: 05/30/18 21:59 Last Infusion: 04/02/18 16:03 Dose: Infused Insulin Aspart (Novolog Insulin Sliding Scale) 0 units SUBQ Q6HR [facility]; Protocol Stop: 05/24/18 00:00 Last Admin: 04/02/18 17:34 Dose: 3 units Insulin Detemir (Levemir Insulin) 10 units SUBQ HS [facility] Stop: 05/24/18 20:59 Last Admin: 04/01/18 21:28 Dose: Not Given Lactobacillus Rhamnosus (Culturelle 15b) 1 each PO DAILY [facility] Stop: 05/30/18 13:59 Last Admin: 04/02/18 08:45 Dose: 1 each Levetiracetam (Keppra) 500 mg GT BID [facility] Stop: 05/24/18 08:59 Last Admin: 04/02/18 17:01 Dose: 500 mg Lorazepam (Ativan) 1 mg IVP Q4HR PRN; Protocol PRN Reason: Agitation Stop: 05/26/18 14:37 Last Admin: 04/02/18 13:36 Dose: 1 mg Magnesium Hydroxide (Milk Of Magnesia) 30 ml GT Q6H PRN PRN Reason: Constipation Stop: 05/23/18 22:40 Metoclopramide HCl (Reglan) 10 mg GT Q8H [facility] Stop: 05/30/18 21:29 Last Admin: 04/02/18 10:00 Dose: 10 mg Miscellaneous (Vancomycin Iv Per Pharmacy) 1 [facility] PRN [facility] Stop: 05/24/18 14:44 Miscellaneous (Zosyn Iv Per Pharmacy) 1 [facility] PRN PRN PRN Reason: PROTOCOL Stop: 05/27/18 13:39 Miscellaneous (Probiotic Screen) 1 [facility] PRN PRN PRN Reason: PROTOCOL Stop: 05/30/18 11:33 Morphine Sulfate (Morphine) 4 mg IVP Q6H PRN PRN Reason: Pain (Severe) Stop: 05/26/18 17:10 Last Admin: 04/01/18 22:23 Dose: 4 mg Ondansetron HCl (Zofran) 4 mg IV Q4H PRN PRN Reason: Nausea / Vomiting Stop: 05/23/18 22:44 Polyethylene Glycol (Miralax) 17 gm GT Q12H [facility] Stop: 05/23/18 22:44 Last Admin: 04/02/18 11:49 Dose: Not Given Potassium Chloride (Potassium Chloride Elixir) 40 meq GT BID [facility] Stop: 05/24/18 08:59 Last Admin: 04/02/18 17:01 Dose: 40 meq Senna (Senna) 8.6 mg GT HS [facility] Stop: 05/28/18 20:59 Last Admin: 04/01/18 21:29 Dose: 8.6 mg Simvastatin (Zocor) 10 mg GT HS [facility] Stop: 05/24/18 20:59 Last Admin: 04/01/18 21:30 Dose: 10 mg Sodium Phosphate (Fleet Enema) 135 ml RC PRN PRN PRN Reason: Constipation Stop: 05/23/18 22:40 General: demented HEENT: NC/AT, PERRLA, EOMI, anicteric sclerae, throat clear Neck: Supple, No JVD, No thyromegaly, +2 carotid pulse wo bruit, No LAD Cardiovascular: Normal S1, Normal S2, without murmur Abdomen: soft, non-tender, non-distended Extremities: clear Neurological: no change - Procedures Procedures: Procedures Procedure Code Date RESPIRATORY VENTILATION, GREATER THAN 96 CONSECUTIVE HOURS [id number] 03/24/18 Internal Medicine Assmt/Plan - Assessment Assessment: 1.UTI. 2.SEPSIS. 3.RESPIRATORY FAILURE. 4.SAH. 5.DM. 6.ANEMIA. - Plan Plan: CONTINUE ON CURRENT MEDICATION AND DIET. Nutritional Asmnt/Malnutr-PDOC - Dietary Evaluation Malnutrition Findings (Please click <Entered> for more info): Nutritional Asmnt/Malnutrition Start: 03/25/18 13: 56 Text: Status: Complete Freq: Protocol: Document 03/25/18 14:40 LCTYSONG (Rec: 03/25/18 14:51 LCTYSONG [email or web address]) Nutritional Asmnt/Malnutrition Patient General Information Nutritional Screening High Risk Diagnosis urosepsis, fever Pertinent Medical Hx/Surgical Hx HTN, asthma/COPD, PEG/Gtube Subjective Information Pt seen resting in bed, on trach. TF was running at 70ml/ hr at this time. Current Diet Order/ Nutrition Support glucerna 1.2 70ml x 20hr Pertinent Medications vit C, colace, iron, novolog, levemir, miralax, D5-0.45ns w 20meq kcl, senna Pertinent Labs 03/25 K 3.1, Cl 13, Cr 0.5, glucose 223., POC 145-222 03/24 Na 146, cl 112, BUN 28, glucose 161 Nutritional Hx/Data Height 1.47 m Height (Calculated Centimeters) 147.3 Current Weight (lbs) 40.823 kg Weight (Calculated Kilograms) 40.8 Weight (Calculated Grams) 30534.3 [place] Body Weight 96 Body Mass Index (BMI) 18.8 Weight Status Approriate GI Symptoms GI Symptoms None Last BM 03/25 Difficult in: None Usual diet at home diabetisource 70ml x 20hr daily at care facility per chart Skin Integrity/Comment: intact jason 13 Estimated Nutritional Goals BEE in Kcals: Using Current wt Calories/Kcals/Kg 30-35 Kcals Calculated 7922-0962 Protein: Using Current wt Protein g/k.2-1.4 Protein Calculated 49-57 Fluid: ml 1230-1435ml (1ml/kcal) Nutritional Problem 2. Problem Problem increased nutrition needs Etiology increased metabolic demand Signs/Symptoms: dx of urosepsis, fever 1. Problem Problem altered nutrition related labs Etiology possible endocrine dysfunction , electrolytes imbalance Signs/Symptoms: glucose 161-165, POC 145-222, K 3.1 Intervention/Recommendation Comments 1. Continue with current TF regimen. It provides 1680kcal, 84g protein, 1127ml free water, meeting 100% of nutritional needs 2. MD to adjust insulin regimen for optimal glycemic control 3. Monitor TF rate, tolerance, wt, skin integrity and labs 4. F/U as high risk in 2-3 days, 03/27-03/28 Expected Outcomes/Goals Expected Outcomes/Goals 1. Pt to meet at least 75% of nutritional needs via nutrition support with tolerance 2. Wt stability, skin to remain intact, labs to approach WNL.
[2018-04-02] MEDS: Insulin Detemir 100 units/mL 10mL Vial SUBQ SCH (22:04)
[2018-04-03] MEDS: Hydrocodone/APAP 5mg/325mg Tab PO SCH ×2 (00:25→05:28)
[2018-04-03] MEDS: INSULIN ASPART SLIDING SCALE 100 UNITS/ML UNIT SUBQ SCH ×2 (00:30→06:37)
[2018-04-03] MEDS: Albuterol/Ipratropium Neb 3 ML AERS HHN SCH ×2 (02:20→07:46)
[2018-04-03] MEDS: Ferrous Sulfate 300 MG/5 ML UDC GT SCH (06:41)
[2018-04-03] MEDS: Potassium Chloride Elixir 20 mEq /15 mL UDC GT SCH (08:28)
[2018-04-03] MEDS: Lactobacillus Rhamnosus GG 15 Billion CFU CAP.SPRINK PO SCH (08:29)
[2018-04-03] MEDS: Morphine Sulfate 4 mg/mL 1mL Syr IVP PRN (08:29)
[2018-04-03] MEDS: Diltiazem 30 mg Tab GT SCH (08:29)
[2018-04-03] MEDS: Multivitamin w/ Minerals Tab GT SCH (08:29)
[2018-04-03] MEDS: Chlorhexidine Gluconate 0.12% 15mL Mouthwash MM SCH (08:42)
[2018-04-03] MEDS: Vancomycin HCl 500 MG in Sodium Chloride 0.9% 100 ML IV SCH (09:00)
[2018-04-03] MEDS: Levetiracetam 500 mg/5mL 5mL UDSyr *for ORAL USE ONLY GT SCH (09:00)
[2018-04-03] MEDS: POLYETHYLENE GLYCOL 3350 17 GM PACK GT SCH (11:29)
--- NOTE | 2018-04-13 22:44 | Discharge Summary ---
DATE OF DISCHARGE: 04/03/2018 FINAL DIAGNOSES: 1. Sepsis. 2. Urinary tract infection. 3. Chronic respiratory failure. 4. Encephalopathy. 5. History of subarachnoid hemorrhage. 6. Diabetes mellitus. 7. Anemia. REVIEW OF HISTORY: The patient is a 47-year-old female with long history of subarachnoid hemorrhage, chronic respiratory failure, chronic encephalopathy, admitted in the hospital with fever and chills. Initial workup sent for urinary infection with sepsis, started on antibiotic, IV fluid and admitted to ICU. PHYSICAL EXAMINATION: VITAL SIGNS: Temperature 100, heart rate 114 and blood pressure 120/63. CHEST: Mild diminished breathing sound. HEART: S1 and S2 normal. ABDOMEN: Soft and bowel sounds positive. EXTREMITIES: No edema. LABORATORY DATA: White blood cell 11.3, hemoglobin 9.7, sodium 146, potassium 3.7, BUN 28 and creatinine 0.6. COURSE OF HOSPITALIZATION: During hospitalization, the patient was seen by Infectious Disease specialist, Dr. Leoncio Ceballos and Dr. Gamez, orthopedic radiologic technologist. The patient improved clinically on 03/28/2018. The patient still has fever. Chest, good entry of air. Heart, S1 and S2 normal. Abdomen, soft and bowel sounds positive. Extremities, no edema. On 03/31/2018, the patient was afebrile. Chest, clear to auscultation. Abdomen, soft and bowel sounds positive. On 04/03/2018, the patient was clinically stable and cleared by orthopedic radiologic technologist and Infectious Disease specialist. DISPOSITION: The patient transferred back to [facility] to continue medication and diet. CONDITION ON DISCHARGE: Stable. MEDICATIONS: Follow discharge reconciliation. JOB# [id number]
== END 2018-04-03 11:34 | DRG 720 ==
LOC: ER 19:42 → ICU 22:34
PROVIDERS: ADMIT Family Medicine; ATTEND Family Medicine
PROC: 5A1955Z Respiratory Ventilation, Greater than 96 Consecutive Hours (ICD-10-PCS; principal; 2018-03-24)
DX: A41.9 Sepsis, unspecified organism (principal); J96.90 Respiratory failure, unspecified, unspecified whether with hypoxia or hypercapnia; G93.41 Metabolic encephalopathy; J15.1 Pneumonia due to Pseudomonas; J44.0 Chronic obstructive pulmonary disease with (acute) lower respiratory infection; Z93.0 Tracheostomy status; E86.0 Dehydration; N39.0 Urinary tract infection, site not specified; E11.9 Type 2 diabetes mellitus without complications; G40.909 Epilepsy, unspecified, not intractable, without status epilepticus; I10 Essential (primary) hypertension; Z82.49 Family history of ischemic heart disease and other diseases of the circulatory system; Z93.1 Gastrostomy status; M41.9 Scoliosis, unspecified; K59.00 Constipation, unspecified; D50.9 Iron deficiency anemia, unspecified; Z79.4 Long term (current) use of insulin; M62.50 Muscle wasting and atrophy, not elsewhere classified, unspecified site
CPT/HCPCS: 36415-UA; 71045-TC; 80048-TC; 80053-TC; 80202-TC; 81001-TC; 82550-TC; 82948-90; 83036-90; 83605; 83735-TC; 84484-TC; 84703-TC; 85007-TC; 85025-TC; 85610-TC; 85730-TC; 87070; 87086-90; 90784; 93005; 94002; 94003; 94640; 96375; J0696; J1644; J1815; J2060; J2185; J2543; J3370; Z7610